=== PATIENT | female | born 1955 | race Caucasian/White ===

== ENCOUNTER → 2020-09-22 08:56 | Outpatient (BNVA) | payer MEDICARE, SELFPAY | PROVIDERS: PCP Internal Medicine; Visit Provider Obstetrics & Gynecology | DX: Z46.6 Encounter for fitting and adjustment of urinary device (principal) | CPT/HCPCS: 51798; 99212 ==

== ENCOUNTER → 2021-01-27 08:04 | Outpatient (BNVA) | payer MEDICARE, SELFPAY | PROVIDERS: PCP Internal Medicine; Visit Provider Obstetrics & Gynecology | DX: Z46.89 Encounter for fitting and adjustment of other specified devices (principal) | CPT/HCPCS: 57160; 99212 ==

== ENCOUNTER 2021-03-01 07:55 | Emergency (ER) | payer MEDICARE, SELFPAY ==
--- NOTE | ~2021-03-01 | CT_ITS ---
EXAMINATION: CT ABDOMEN AND PELVIS WITHOUT CONTRAST CLINICAL INFORMATION: Left flank pain. COMPARISON: None. TECHNIQUE: Multidetector volumetric imaging was performed from the superior aspect of the liver through the pubic symphysis. Sagittal and coronal reformatted images were obtained on the technologist workstation. This CT examination was performed using dose optimization techniques as appropriate, variously including the following: *Automated exposure control *Adjustment of mA and/or kV according to patient size (this includes techniques or standardized protocols for targeted exams where dose is matched to indication/reason for exam; i.e. extremities or head) *Use of iterative reconstruction technique DLP: 847 mGy-cm. FINDINGS: LUNG BASES: Mild dependent atelectasis in the lung bases, left greater than right. Densely calcified left lower lobe granuloma. 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 The liver is normal in size, shape, and attenuation. No focal hepatic lesion on noncontrast imaging. No biliary ductal dilatation is present. The gallbladder is unremarkable with no evidence of radiopaque gallstones, gallbladder wall thickening, or obvious pericholecystic inflammatory changes. PANCREAS: Unremarkable on noncontrast imaging. SPLEEN, ADRENAL GLANDS: Unremarkable on noncontrast imaging. KIDNEYS AND URETERS: The kidneys are normal in size, shape, and attenuation. There are several bilateral nonobstructing 2 to 4 mm calcifications in the kidneys bilaterally with attenuation values extending up to 414 Hounsfield units. There is moderate bilateral hydronephrosis with small extrarenal pelvis sees, likely due to chronic UPJ obstruction. There are also likely associated parapelvic cysts. In the upper pole of the left kidney, an exophytic 3.2 x 4.7 cm cyst is seen. No perinephric stranding. The ureters bilaterally are decompressed and no ureteral calculi are seen. BLADDER: Unremarkable. PELVIC VISCERA: Uterus and adnexa atrophic. A vaginal pessary is seen in place. GASTROINTESTINAL TRACT: Prominent duodenal diverticulum is seen arising from the junctions of the third and fourth portions of the duodenum with air-fluid level. In the left mid flank, a few closely opposed loops of abnormally dilated and fluid-filled jejunum are seen with decompression of the upstream and downstream small bowel loops. This finding is nonspecific and may represent a localized ileus, but also raises the suspicion of a subtle evolving closed loop obstruction. No definite internal hernia is seen. Remainder of the small bowel loops are unremarkable. There is mild submucosal fat deposition in the terminal ileum, perhaps related to sequelae of previous inflammation versus secondary to increased BMI. There is severe descending and sigmoid colonic and mild transverse colonic diverticulosis with no evidence of acute diverticulitis. The appendix is unremarkable. ABDOMINAL WALL: There is a small fat-containing umbilical hernia. LYMPH NODES, VASCULAR: Unremarkable. OSSEOUS STRUCTURES: Large T10 and small T11 vertebral hemangiomas are seen. There is diffuse osteopenia. Moderate facet arthropathy is noted in the mid and lower lumbar spine. CT/CT abdomen pelvis wo con IMPRESSION: 1. Abnormal fluid-filled loops of small bowel are seen in the left mid flank. Findings are nonspecific and may represent a localized ileus, but as discussed above, subtle evolving closed loop obstruction cannot be excluded. No definite internal hernia or inflammatory changes are seen in the surrounding mesentery. Close clinical correlation and follow-up is recommended. Serial follow-up CT scan with contrast may also be warranted depending on clinical circumstances. 2. Bilateral nonobstructing nephrolithiasis. 3. Bilateral moderate hydronephrosis with decompression of the ureters and no obstructing stone or mass seen. Findings are most likely related to chronic UPJ obstruction. Associated renal cysts are also noted.
[2021-03-01 08:00] VITALS: BP 176/92; PULSE 78; RESP 17; TEMP 36.8; O2SAT 96; BMI 32.8
[2021-03-01 09:17] LABS: Glucose Urine UA NEG (NEG); Leukocyte Esterase Urine TRACE (NEG); Nitrite Urine NEG (NEG); PH 7.5 (5.0-8.0); Specific Gravity - Urine 1.015 (1.005-1.025); UACC Culture Trigger YES; Urine Blood 2+ (NEG); Urine Ketones NEG (NEG); Urine Protein NEG (NEG-TRACE)
[2021-03-01 09:20] LABS: Appearance Urine CLEAR; Color Urine YELLOW
[2021-03-01 09:26] LABS: UACC CULT YES
[2021-03-01 09:27] LABS: Bacteria Urine TRACE /LPF; Squamous Epithelial Cell Urine 1+ /LPF
[2021-03-01 09:32] LABS: MANUAL DIFF FLAG NO
[2021-03-01 09:33] LABS: Basophils Percent Auto 0.4 % (0-2); Eosinophils Absolute Auto 0.3 X10*3/uL (0.0-0.4); Eosinophils Percent Auto 3.6 % (0-4); Hemoglobin 13.3 g/dl (12.0-16.0); Imm Gran Abs Auto 0.02 X10*3/uL (0.00-0.03); Imm Gran Pct Auto 0.3 % (0.0-0.4); Lymphocytes Absolute Auto 1.8 X10*3/uL (1.2-4.9); Lymphocytes Percent Auto 25.2 % (20-40); Mean Corpuscular HGB Conc 31.7 g/dl (31.0-35.0); Mean Corpuscular Hemoglobin 30.5 pg (27.0-33.0); Mean Corpuscular Volume 96.3 fL (80-98); Mean Platelet Volume 10.6 fL (9.4-12.3); Monocytes Absolute Auto 0.6 X10*3/uL (0.1-1.2); Monocytes Percent Auto 8.1 % (2-11); Neutrophils Absolute Auto 4.5 X10*3/uL (2.0-8.3); Neutrophils Percent Auto 62.4 % (45-73); Platelet Count 281 X10*3/uL (160-400); Red Blood Count 4.36 X10*6/uL (4.20-5.50); Red Cell Distribution Width 13.9 % (11.0-16.0); White Blood Count 7.3 X10*3/uL (4.8-10.8)
--- NOTE | 2021-03-01 09:39 | ED.ABDPAIN ---
HPI - Abdominal Pain General Chief Complaint: Abdominal Pain Stated Complaint: L SIDE AND ABD PAIN Time Seen by Provider: 03/01/21 08:33 Source: patient Mode of arrival: ambulatory Limitations: no limitations History of Present Illness HPI narrative: 65-year-old female with a past medical history of hypertension, kidney stones and breast cancer no pertinent surgical history presenting to the ED with complaints of left mid/left upper quadrant abdominal pain since yesterday worse today. Denies any fevers, chills, dizziness, lightheadedness, changes in vision, nausea/vomiting, neck pain/stiffness, chest pain, shortness of breath, dyspnea on exertion, orthopnea, palpitations, cough, back pain, diarrhea, constipation, black or bloody stools, hematuria, dysuria, abnormal vaginal discharge or any other symptoms complaints or concerns at this time. Denies recent travel or sick contacts. Denies being on any blood thinners. MD elicited complaint: abdominal pain Onset (ago): day(s) (Two days worse today) Pain Consistency: constant Location: LUQ and L flank Severity: moderate Quality: aching Radiation: none Migration to: no migration Exacerbating factors: other (Palpation) Relieving factors: nothing Associated symptoms: denies other symptoms Related Data Home Medications Medication Instructions Recorded Confirmed triamcinolone acetonide 0.1 % 1 applic TOPICAL DAILY 09/22/20 12/16/20 topical cream Previous Rx's Medication Instructions Recorded losartan 50 mg tablet 50 mg PO DAILY #90 tab 12/16/20 acetaminophen [Tylenol Extra 1,000 mg PO QID PRN #14 tab 03/01/21 Strength] docusate sodium [Colace] 100 mg PO BID #14 cap 03/01/21 ibuprofen 600 mg PO Q8H PRN #14 tab 03/01/21 nitrofurantoin monohyd/m-cryst 100 mg PO BID 7 Days #14 cap 03/01/21 [Macrobid] ondansetron HCl [Zofran] 4 mg PO Q8H PRN #14 tab 03/01/21 Allergies Allergy/AdvReac Type Severity Reaction Status Date / Time lidocaine Allergy Intermediate hives Verified 01/27/21 08:11 penicillin V Allergy Intermediate rash Verified 01/27/21 08:11 erythromycin base Allergy Unknown Rash Verified 01/27/21 08:11 Review of Systems Review of Systems Constitutional : No Weight loss, No Fever, No Chills, No Night Sweats, No Fatigue, No Malaise ENT/Mouth: No ear pain, No sore throat, No Difficulty swallowing Cardiovascular : No Chest Pain, No SOB, No Dyspnea on Exertion, No Orthopnea, No Edema, No Palpitations Respiratory : No Cough, No Sputum, No Wheezing, No Dyspnea Gastrointestinal : + Abdominal pain, No Nausea, No Vomiting, No Diarrhea, No blood streaked emesis, No coffee-ground emesis, No gross hematemesis, No blood streak stool, No gross hematochezia, No Melena Genitourinary : No irregular bleeding, No Dysuria, No Urinary Frequency, No Hematuria,No Urinary Incontinence, No Urgency, No Flank Pain Musculoskeletal : No joint pain, No Myalgias, No Joint Swelling Skin : No Skin Lesions, No rash Neuro : No Weakness, No Numbness, No Paresthesias, No Loss of Consciousness, NoDizziness, No Headache Psych : No Social Issues, Heme/Lymph: No Bruising, No Bleeding,No Lymphadenopathy Endocrine : No Polyuria, No Polydipsia, No Temperature Intolerance Yes all other systems are reviewed and are negative Physical Exam Vital Signs: Vital Signs: Last Vital Signs Temp 98.3 F 03/01/21 08:00 Pulse 72 03/01/21 12:13 Resp 17 03/01/21 12:13 BP 164/78 H 03/01/21 12:13 Pulse Ox 96 03/01/21 12:13 Body Mass Index 32.8 vital signs have been reviewed as normal and appeared to be correct. Blood pressure hypertensive at 176/92. Heart rate normal. Respiration rate normal. Temperature normal. Oxygen saturation normal. Appearance: Alert. Oriented X3. No acute distress. Head: Normal external exam. Normocephalic. Eyes: PERRLA. EOMI. Conjunctiva and sclera normal. Eyelids normal. ENT: Pharynx normal. Uvula midline. Moist mucous membranes. No trismus noted. No drooling noted. No muffled voice noted. Neck: Normal inspection. Neck supple. FROM. No adenopathy. No meningeal signs. CVS: Normal heart rate and rhythm. Heart sound normal. No murmurs noted. Pulses normal throughout. Respiratory: No respiratory distress. Painless inspiration. Breath sounds normal. No wheezes/rales/rhonchi noted. Chest nontender. No accessory muscle usage noted or decreased air movement noted. Abdomen: Soft and moderate tenderness to palpation to left upper quadrant/epigastric/left flank with guarding. Nondistended. No rigidity. Bowel sounds normal in all 4 quadrants. No distention noted. No organomegaly noted. No visible injury noted. No rebound tenderness. Negative Rovsing sign. Negative obturator's sign. Negative psoas sign. Negative Louis sign. Back: + mild left CVA tenderness. No right-sided CVA tenderness. Full range of motion noted. Skin: Skin warm and dry. Normal skin color. Normal skin turgor. No rashes/lesions/lacerations noted. Extremities: Extremities exhibit normal range of motion. Extremities nontender. Neuro: Oriented X 3. No motor deficit. No sensory deficit. Reflexes normal. Normal steady gait. Course Course Course Narrative: 10:30am - labs reviewed and all within normal limits. UA revealed +2 blood and a trace of leukocytes. - awaiting CT scan of abdomen and pelvis without contrast. Will re-evaluate. Reevaluation(s) Reevaluation #1: - CT scan of abdomen and pelvis revealed abnormal fluid-filled loops of small bowel are seen in the left mid flank findings are nonspecific and may represent a localized ileus, but as discussed above, subtle evolving closed loop obstruction cannot be excluded. Patient also with bilateral nonobstructing nephrolithiasis and hydronephrosis - consulted with General surgery Dr. Glass for further recommendations. Time: 12:55 Reevaluation #2: - Dr. Glass reviewed the imaging for the CT scan of the abdomen pelvis without contrast and he reported that he does not believe that there is a small bowel obstruction plus the patient does not have any symptoms consistent with obstruction. He reported that he would treat him her for the UTI and instruct her to return if any new or worsening symptoms. He does not believe she needs me to admission or surgery at this time. - I also consulted with Dr. Zabala the urologist who reported that this seems chronic that she does not meet admission at this time. - therefore print out a copy of the results explained to the patient will our thoughts were and instructed her to go home stand clear liquid diet and to return if any new or worsening symptoms. Patient understands agrees with this plan. Time: 13:33 MDM - Abdominal Pain MDM Narrative Medical decision making narrative: 8:20am - 65-year-old female presenting to the ED with complaints of left mid/left upper quadrant abdominal pain since yesterday worse today. - On exam patient is alert and oriented x3. Not in any acute distress. No focal neuro deficits are noted. Vital signs reviewed and patient mildly hypertensive at 176/92 otherwise all other vitals are within normal limits. Lungs clear to auscultation. CV RRR. Abdomen is soft although moderate tenderness to the left upper quadrant/epigastric/left flank and left CVA tenderness. Not consistent with acute abdomen. - Plan: Labs, UA, CT scan of abdomen pelvis without contrast, UA. Provide 5 mg of oxycodone. Patient also interested in filling out healthcare proxy therefore case management consult also placed. Will re-evaluate. Medical Records Attestation: I reviewed the patient's medical records. Lab Data Attestation: I reviewed the patient's lab results. Result diagrams: 03/01/21 09:25 03/01/21 09:25 Labs: Lab Results 03/01/21 03/01/21 03/01/21 Range/Units 08:59 09:25 09:25 WBC 7.3 (4.8-10.8) X10*3/uL RBC 4.36 (4.20-5.50) X10*6/uL Hgb 13.3 (12.0-16.0) g/dl Hct 42.0 (37-47) % MCV 96.3 (80-98) fL MCH 30.5 (27.0-33.0) pg MCHC 31.7 (31.0-35.0) g/dl RDW 13.9 (11.0-16.0) % Plt Count 281 (160-400) X10*3/uL MPV 10.6 (9.4-12.3) fL Immature Gran % (Auto) 0.3 (0.0-0.4) % Neut % (Auto) 62.4 (45-73) % Lymph % (Auto) 25.2 (20-40) % [place] % (Auto) 8.1 (2-11) % Eos % (Auto) 3.6 (0-4) % Baso % (Auto) 0.4 (0-2) % Lymph # (Auto) 1.8 (1.2-4.9) X10*3/uL [place] # (Auto) 0.6 (0.1-1.2) X10*3/uL Eos # (Auto) 0.3 (0.0-0.4) X10*3/uL Baso # (Auto) 0.0 (0.0-0.2) X10*3/uL Abs Immat Gran (auto) 0.02 (0.00-0.03) X10*3/uL Absolute Neuts (auto) 4.5 (2.0-8.3) X10*3/uL Absolute Nucleated RBC 0.000 (0.0-0.012) X10*3/uL Nucleated RBC % (auto) 0.0 (0.0-0.2) /100WBC Sodium 141 (135-145) mmol/L Potassium 4.3 (3.3-5.1) mmol/L Chloride 106 (96-108) mmol/L Carbon Dioxide 26 (22-29) mmol/L Anion Gap 13 (12-20) BUN 10 (9-16) mg/dL Creatinine 0.58 (0.5-1.4) mg/dL Estim Creat Clear Calc 96.6 Estimated GFR > 60 Random Glucose 98 (60-115) mg/dL Calcium 9.1 (8.4-10.2) mg/dL Magnesium 1.9 (1.6-2.6) mg/dL Total Bilirubin 0.7 (0.0-1.0) mg/dL Direct Bilirubin 0.2 (0.0-0.5) mg/dL AST 23 (5-31) U/L ALT 27 (0-31) U/L Alkaline Phosphatase 101 (39-117) U/L Total Protein 7.0 (6.5-8.0) g/dL Albumin 4.2 (3.5-5.0) g/dL Lipase 17 (8-78) U/L Urine Color YELLOW Urine Appearance CLEAR Urine pH 7.5 (5.0-8.0) Ur Specific [place] 1.015 (1.005-1.025) Urine Protein NEG (NEG-TRACE) MG/DL Urine Glucose (UA) NEG (NEG) MG/DL Urine Ketones NEG (NEG) MG/DL Urine Blood 2+ H (NEG) Urine Nitrite NEG (NEG) Ur Leukocyte Esterase TRACE H (NEG) Urine RBC 10-14 H (0) /HPF Urine WBC 1-4 (0-4) /HPF Ur Squamous Epith Cells 1+ /LPF Urine Bacteria TRACE /LPF Imaging Data CT scan of abdomen pelvis without contrast: Attestation: I personally reviewed and interpreted this imaging study as follows: Radiologist's impression: FINDINGS: LUNG BASES: Mild dependent atelectasis in the lung bases, left greater than right. Densely calcified left lower lobe granuloma. 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 The liver is normal in size, shape, and attenuation. No focal hepatic lesion on noncontrast imaging. No biliary ductal dilatation is present. The gallbladder is unremarkable with no evidence of radiopaque gallstones, gallbladder wall thickening, or obvious pericholecystic inflammatory changes. PANCREAS: Unremarkable on noncontrast imaging. SPLEEN, ADRENAL GLANDS: Unremarkable on noncontrast imaging. KIDNEYS AND URETERS: The kidneys are normal in size, shape, and attenuation. There are several bilateral nonobstructing 2 to 4 mm calcifications in the kidneys bilaterally with attenuation values extending up to 414 Hounsfield units. There is moderate bilateral hydronephrosis with small extrarenal pelvis sees, likely due to chronic UPJ obstruction. There are also likely associated parapelvic cysts. In the upper pole of the left kidney, an exophytic 3.2 x 4.7 cm cyst is seen. No perinephric stranding. The ureters bilaterally are decompressed and no ureteral calculi are seen. BLADDER: Unremarkable. PELVIC VISCERA: Uterus and adnexa atrophic. A vaginal pessary is seen in place. GASTROINTESTINAL TRACT: Prominent duodenal diverticulum is seen arising from the junctions of the third and fourth portions of the duodenum with air-fluid level. In the left mid flank, a few closely opposed loops of abnormally dilated and fluid-filled jejunum are seen with decompression of the upstream and downstream small bowel loops. This finding is nonspecific and may represent a localized ileus, but also raises the suspicion of a subtle evolving closed loop obstruction. No definite internal hernia is seen. Remainder of the small bowel loops are unremarkable. There is mild submucosal fat deposition in the terminal ileum, perhaps related to sequelae of previous inflammation versus secondary to increased BMI. There is severe descending and sigmoid colonic and mild transverse colonic diverticulosis with no evidence of acute diverticulitis. The appendix is unremarkable. ABDOMINAL WALL: There is a small fat-containing umbilical hernia. LYMPH NODES, VASCULAR: Unremarkable. OSSEOUS STRUCTURES: Large T10 and small T11 vertebral hemangiomas are seen. There is diffuse osteopenia. Moderate facet arthropathy is noted in the mid and lower lumbar spine. CT/CT abdomen pelvis wo con IMPRESSION: 1. Abnormal fluid-filled loops of small bowel are seen in the left mid flank. Findings are nonspecific and may represent a localized ileus, but as discussed above, subtle evolving closed loop obstruction cannot be excluded. No definite internal hernia or inflammatory changes are seen in the surrounding mesentery. Close clinical correlation and follow-up is recommended. Serial follow-up CT scan with contrast may also be warranted depending on clinical circumstances. 2. Bilateral nonobstructing nephrolithiasis. 3. Bilateral moderate hydronephrosis with decompression of the ureters and no obstructing stone or mass seen. Findings are most likely related to chronic UPJ obstruction. Associated renal cysts are also noted. Critical Care Time Critical Care Time Critical Care Time: Yes Total Critical Care Time: 60 Attestation: I personally attest to this time spent taking care of the patient Discharge Plan Discharge Clinical Impression: Ileus, Bilateral nephrolithiasis, Hydronephrosis, Renal cyst, UTI (urinary tract infection) Patient Disposition: Home, Self-Care Instructions: Kidney Stones (ED), Clear Liquid Diet (ED), Hydronephrosis (ED), Ileus (ED), Kidney Cyst (ED), Urinary Tract Infection in Older Adults (ED) Additional Instructions: You should start a clear liquid diet for the next week. Return if any new or worsening symptoms especially if you have any nausea/vomiting or increasing abdominal pain and not passing any flatulence or bowels. Please follow-up with a urologist. Prescriptions: New nitrofurantoin monohyd/m-cryst [Macrobid] 100 mg capsule 100 mg PO BID 7 Days Qty: 14 RF: 0 ibuprofen 800 mg tablet 600 mg PO Q8H PRN (Reason: pain) Qty: 14 RF: 0 acetaminophen [Tylenol Extra Strength] 500 mg tablet 1,000 mg PO QID PRN (Reason: fever or pain) Qty: 14 RF: 0 docusate sodium [Colace] 100 mg capsule 100 mg PO BID Qty: 14 RF: 0 ondansetron HCl [Zofran] 4 mg tablet 4 mg PO Q8H PRN (Reason: nausea and vomiting) Qty: 14 RF: 0 No Action losartan 50 mg tablet 50 mg PO DAILY Qty: 90 RF: 0 triamcinolone acetonide 0.1 % cream 1 applic topical DAILY RF: 0 Referrals: Raul Zabala MD [Physician] - 2 days Stand Alone Forms: Work/School Release Print Language: Nauruan [facility] Past Medical History Attestation statement: The following information was validated with the patient. Medical History Hx of breast cancer Hx of essential hypertension Surgical History No pertinent past surgical history Family History Family History Maternal Grandmother Breast cancer Sister Breast cancer Father Dementia Maternal Aunt Breast cancer Mother No problems noted. Paternal Grandmother Cancer of thyroid Brother No problems noted. Brother No problems noted. Brother No problems noted. Son No problems noted. Son No problems noted. Son No problems noted. Daughter No problems noted. Social History Social History Alcohol intake: never Smoking Status: Never smoker Use of substances other than those prescribed or required for medical reasons: No Advance Directives: Yes Advance Directives Information Provided: Yes Advance Directives on File: No Sexual orientation: Straight/Heterosexual Gender identity: female
[2021-03-01] MEDS: oxyCODONE HCl Immed Release 5 MG TABLET PO ×2 (09:44→13:45)
[2021-03-01 10:18] LABS: Alanine Aminotransferase 27 U/L (0-31); Albumin Level 4.2 g/dL (3.5-5.0); Alkaline Phosphatase 101 U/L (39-117); Anion Gap 13 (12-20); Aspartate Amino Transferase 23 U/L (5-31); Bilirubin Direct 0.2 mg/dL (0.0-0.5); Bilirubin Total 0.7 mg/dL (0.0-1.0); Blood Urea Nitrogen 10 mg/dL (9-16); Calcium 9.1 mg/dL (8.4-10.2); Carbon Dioxide 26 mmol/L (22-29); Chloride 106 mmol/L (96-108); Creatinine Clr Calc Pharmacy 96.6; Estimated Glomerular Filt Rate > 60; Glucose Random 98 mg/dL (60-115); Lipase 17 U/L (8-78); Magnesium 1.9 mg/dL (1.6-2.6); Potassium 4.3 mmol/L (3.3-5.1); Sodium 141 mmol/L (135-145)
[2021-03-01 11:18] VITALS: BP 166/82; PULSE 72; RESP 19; O2SAT 97
[2021-03-01 12:13] VITALS: BP 164/78; PULSE 72; RESP 17; O2SAT 96
== END 2021-03-01 13:54 | disposition home or self-care (01) ==
PROVIDERS: Physician Assistant Medical; Emergency Provider Emergency Medicine; PCP Internal Medicine
DX: K56.7 Ileus, unspecified (principal); N20.0 Calculus of kidney; N28.1 Cyst of kidney, acquired; N39.0 Urinary tract infection, site not specified; R10.12 Left upper quadrant pain
CPT/HCPCS: 36415; 74176; 80053; 80076; 81001; 82248; 83690; 83735; 85025; 87086; 99284; 99285

== ENCOUNTER 2021-03-16 08:06 | Outpatient (REF) | payer MEDICARE, SELFPAY ==
--- NOTE | ~2021-03-16 | MM_ITS ---
EXAMINATION: MM SCREENING DIGITAL BREAST TOMOSYNTHESIS, BILATERAL CLINICAL INFORMATION: Screening. Asymptomatic. The lifetime risk of breast cancer based on the Tyrer-Cuzick Model is 14%. COMPARISON: Mammography: 11/05/2019, 07/11/2017; outside exam 06/08/2016 ([facility]). TECHNIQUE: Digital breast tomosynthesis is performed in both the craniocaudal and mediolateral oblique views along with computer-aided detection (CAD). Synthesized 2D images are generated from the tomosynthesis. Additional right MLO view is provided. FINDINGS: There are scattered areas of fibroglandular density (ACR BI-RADS breast composition Category b). There are no significant masses, abnormal calcifications, or other abnormalities. Parenchymal pattern is similar to prior exams. No significant changes. MM/MM tomosynthesis screening BI IMPRESSION: No mammographic evidence of malignancy. ASSESSMENT: BI-RADS 1: Negative RECOMMENDATION: Routine annual mammography screening. This patient's information was entered into a reminder system with a target due date for their next mammogram.
== END 2021-03-16 08:07 | disposition home or self-care (01) ==
LOC: HO.MAMMO 08:06
PROVIDERS: Visit Provider Internal Medicine
DX: Z12.31 Encounter for screening mammogram for malignant neoplasm of breast (principal)
CPT/HCPCS: 77063; 77067

== ENCOUNTER 2021-03-24 07:36 | Outpatient (REF) | payer MEDICARE, SELFPAY ==
[2021-03-24 11:48] LABS: Alanine Aminotransferase 38 U/L (0-31); Albumin Level 4.5 g/dL (3.5-5.0); Alkaline Phosphatase 112 U/L (39-117); Anion Gap 16 (12-20); Aspartate Amino Transferase 25 U/L (5-31); Bilirubin Direct 0.2 mg/dL (0.0-0.5); Bilirubin Total 0.4 mg/dL (0.0-1.0); Blood Urea Nitrogen 12 mg/dL (9-16); Calcium 9.2 mg/dL (8.4-10.2); Carbon Dioxide 22 mmol/L (22-29); Chloride 104 mmol/L (96-108); Estimated Glomerular Filt Rate > 60; Glucose Random 91 mg/dL (60-115); Potassium 4.3 mmol/L (3.3-5.1); Sodium 138 mmol/L (135-145); Total Protein 7.5 g/dL (6.5-8.0)
== END 2021-03-24 07:37 | disposition home or self-care (01) ==
LOC: HO.HMGCLDS 07:36
PROVIDERS: PCP Internal Medicine; Visit Provider Internal Medicine
DX: I10 Essential (primary) hypertension (principal); L30.9 Dermatitis, unspecified
CPT/HCPCS: 36415; 80048; 80076

== ENCOUNTER 2021-04-05 07:54 | Emergency (ER) | payer MEDICARE, SELFPAY ==
--- NOTE | ~2021-04-05 | CT_ITS ---
EXAMINATION: CT ABDOMEN AND PELVIS WITH CONTRAST CLINICAL INFORMATION: Abdominal pain. Kidney stones. COMPARISON: CT abdomen and pelvis of 03/01/2021. Pelvic ultrasound of 11/28/2018. TECHNIQUE: Multidetector volumetric images were obtained from the superior aspect of the liver through the pubic symphysis following administration 85 mL of Omnipaque 350 intravenous contrast. Sagittal and coronal reformatted images were obtained on the technologist's workstation. Delayed images through the kidneys in the excretory phase were obtained. Oral contrast: No. This CT examination was performed using dose optimization techniques as appropriate, variously including the following: *Automated exposure control. *Adjustment of mA and/or kV according to patient size (this includes techniques or standardized protocols for targeted exams where dose is matched to indication/reason for exam; i.e. extremities or head). *Use of iterative reconstruction technique. DLP: 1359 mGy-cm. FINDINGS: LUNG BASES: Bibasilar minimal dependent and linear atelectasis. No pleural or pericardial effusion. No pleural or pericardial effusion. LIVER, GALLBLADDER, AND BILIARY TREE: The liver is normal in size, shape, and attenuation. No focal hepatic lesion or biliary ductal dilatation is present. The gallbladder is unremarkable with no evidence of radiopaque gallstones, gallbladder wall thickening, or obvious pericholecystic inflammatory changes. PANCREAS: Unremarkable. SPLEEN: Unremarkable. ADRENAL GLANDS: Unremarkable. KIDNEYS AND URETERS: The kidneys are normal in size, shape and attenuation. Multiple bilateral peripelvic renal cysts are noted. At least 4 small nonobstructing renal calculi are noted in the mid and lower right kidney similar to previous CT measuring up to 0.4 cm. A few punctate nonobstructing left renal lower pole calculi are seen. No evidence of radiopaque ureteric calculi. No hydroureteronephrosis. No perinephric stranding. BLADDER: Unremarkable. GASTROINTESTINAL TRACT: The colon is normal in caliber. Mild to moderate s[place]ana colonic diverticulosis is noted without acute diverticulitis. An appendix is normal. No evidence of colonic wall thickening or pericolic fat stranding. The stomach and small bowel are not abnormally dilated. Swirling of the small bowel mesentery in the left mid and lower abdomen is noted (series 3 images 50 through 61/92). No significant bowel dilatation or bowel wall thickening is noted in the region. ABDOMINAL WALL: No significant hernia is appreciated. LYMPH NODES: There is no evidence of pathologically enlarged lymph nodes. VASCULAR: The aortoiliac vessels are normal in caliber. Mild scattered calcific atherosclerosis of the aorta and iliac arteries. The celiac axis, superior mesenteric artery and inferior mesenteric artery are normal in caliber and well opacified. Portal venous system, splenic vein and SMV are also well opacified. PELVIC VISCERA: Normal CT appearance of the uterus and ovaries/adnexa. A ring-shaped structure is noted in the vagina, which may represent pessary/diaphragm. OSSEOUS STRUCTURES: No acute or suspicious osseous abnormality. Intraosseous hemangioma in the T10 body is again noted. Small intraosseous hemangioma in T11 body. Minimal anterior subluxation of L4 over L5. CT/CT abdomen pelvis w con IMPRESSION: 1. Bilateral nonobstructing small renal calculi. No hydroureteronephrosis. Prominent bilateral renal peripelvic cysts. No perinephric stranding. 2. Diffuse colonic diverticulosis without acute diverticulitis. 3. Swirling of the small bowel mesentery in the left mid and lower hemiabdomen without associated bowel dilatation or bowel wall thickening is nonspecific. Findings can be seen in the setting of internal bowel herniation through the mesenteric defect. Recommend clinical correlation and surgical consultation. This critical result was discussed with FELICIA Alonzo at 2:10 PM on 04/05/2021 and it was ascertained that the content and urgency of the report was understood at the time of direct communication.
--- NOTE | 2021-04-05 10:50 | ECG_ITS ---
Test Reason : ABD PAIN Blood Pressure : / mmHG Vent. Rate : 087 BPM Atrial Rate : 087 BPM P-R Int : 148 ms QRS Dur : 088 ms QT Int : 400 ms P-R-T Axes : 028 029 038 degrees QTc Int : 481 ms Normal sinus rhythm Normal ECG No previous ECGs available Referred By: Mook Singh Electronically Signed By:ANAI GAN
--- NOTE | 2021-04-05 11:00 | ED_ITS ---
HPI - Abdominal Pain General Chief Complaint: Abdominal Pain Stated Complaint: kidney stones, infection Time Seen by Provider: 04/05/21 10:36 Source: patient Mode of arrival: ambulatory Limitations: no limitations History of Present Illness HPI narrative: Patient presents ED for abdominal pain since yesterday. Patient recently diagnosed with kidney stones 6 weeks ago states mother return. Patient states upper abdominal pain radiating down to lower abdomen. Patient denies any flank pain, fever, chills, dysuria, hematuria. Related Data Home Medications Medication Instructions Recorded Confirmed triamcinolone acetonide 0.1 % 1 applic TOPICAL DAILY 09/22/20 03/24/21 topical cream Previous Rx's Medication Instructions Recorded losartan 50 mg tablet 50 mg PO DAILY #90 tab 12/16/20 docusate sodium [Colace] 100 mg PO BID #14 cap 03/01/21 ibuprofen 600 mg PO Q8H PRN #14 tab 03/01/21 naproxen 500 mg PO BID PRN #20 tab 04/05/21 Allergies Allergy/AdvReac Type Severity Reaction Status Date / Time lidocaine Allergy Intermediate hives Verified 03/06/21 10:48 penicillin V Allergy Intermediate rash Verified 03/06/21 10:48 erythromycin base Allergy Unknown Rash Verified 03/06/21 10:48 Review of Systems Review of Systems Yes all other systems are reviewed and are negative Constitutional: Reports as per HPI and Reports no additional constitutional complaints Eyes: Reports as per HPI and Reports no additional eye complaints Reports system reviewed and no additional complaints, except as documented and Reports as per HPI Cardiovascular: Reports as per HPI and Reports no additional cardiovascular complaints Respiratory: Reports as per HPI and Reports no additional respiratory complaints Gastrointestinal: Reports as per HPI, Reports no additional gastrointestinal co mplaints and Reports abdominal pain Genitourinary: Reports no additional female genitourinary complaints and Reports as per HPI Musculoskeletal: Reports no additional musculoskeletal complaints and Reports as per HPI Reports system reviewed and no additional complaints, except as documented and Reports as per HPI Psychiatric: Reports no additional psychiatric complaints and Reports as per HPI Physical Exam Vital Signs: Vital Signs: Last Vital Signs Temp 97.7 F 04/05/21 11:24 Pulse 78 04/05/21 14:00 Resp 14 04/05/21 14:00 BP 160/72 H 04/05/21 14:00 Pulse Ox 95 04/05/21 14:00 Body Mass Index 32.8 Const: General: cooperative, healthy appearing, comfortable, no acute distress, well developed, alert and awake Orientation/consciousness: patient oriented x3 HENMT: Head: Yes normal to inspection, Yes No palpable skull fracture present, Yes normocephalic, Yes atraumatic and No abrasion Eyes: General: appearance normal, both eyes and all related structures Neck: Neck: Yes normal visual inspection, Yes full ROM, Yes no lymp hadenopathy, Yes no meningeal signs, Yes trachea midline, Yes supple and No tender Chest: Chest palpation & inspection: normal inspection of the chest and normal palpation of entire chest wall Resp: Effort & Inspection: normal respiratory effort and able to speak in complete sentences Auscultation: clear to auscultation bilaterally Cardio: Jugular venous distension: no JVD Heart sounds: S1 normal heart sound present and S2 normal heart sound present GI: Inspection: Yes normal to inspection and No abdominal wall ecchymosis Palpation (GI): Soft to palpation, not firm, Tenderness to palpation present (GI) (upper/mid abdomen tenderness.) not in the LLQ, not in the RLQ, not in the LUQ, not in the RUQ, not at McBurney's point, not periumbilically, not sup rapubicly, Louis's sign negative, obturator sign negative, psoas sign negative, with no rebound tenderness and Rovsing's sign negative, no guarding and not rigid : General: No CVA tenderness and Yes no CVA tenderness Back/Spine/Pelvis: Back: no CVA tenderness, No CVA tenderness and No back te nderness Skin: General skin exam: no rashes or lesions noted and elasticity normal Neuro: General: patient oriented x3, no meningeal signs and CN's II-XI intact bilaterally Cranial nerves: Yes CN's II-XII intact bilaterally Extrem: General: Yes normal to inspection and Yes full ROM Psych: Appearance: grossly normal, well kempt and not disheveled Course Course Course Narrative: Labs ordered, EKG, CT scan, and troponin ordered. Patient ordered Toradol. Reevaluation(s) Reevaluation #1: EKG normal. Troponin came back negative after having abdominal pain for [address] Da Silva called and states patient have a testing mesentery. Dr. Chaidez of surgery was contacted and she came to the bedside and evaluated patient. Awaiting for her recommendations. Reevaluation #2: Dr. Chaidez states no surgical intervention. Patient could be discharged. Patient already has a follow-up with Dr. Glass for twisting mesentery. CT scan shows the same nonobstructive renal calculi. UA negative for UTI. Labs are baseline. Patient to be discharged. MDM - Abdominal Pain MDM Narrative Medical decision making narrative: Abdominal pain. Twisting mesentery Lab Data Result diagrams: 04/05/21 11:00 04/05/21 11:00 Labs: Lab Results 04/05/21 04/05/21 04/05/21 Range/Units 11:00 11:00 11:00 WBC 7.0 (4.8-10.8) X10*3/uL RBC 4.44 (4.20-5.50) X10*6/uL Hgb 13.7 (12.0-16.0) g/dl Hct 42.3 (37-47) % MCV 95.3 (80-98) fL MCH 30.9 (27.0-33.0) pg MCHC 32.4 (31.0-35.0) g/dl RDW 13.9 (11.0-16.0) % Plt Count 252 (160-400) X10*3/uL MPV 11.1 (9.4-12.3) fL Immature Gran % (Auto) 0.3 (0.0-0.4) % Neut % (Auto) 57.2 (45-73) % Lymph % (Auto) 30.7 (20-40) % [place] % (Auto) 7.9 (2-11) % Eos % (Auto) 3.6 (0-4) % Baso % (Auto) 0.3 (0-2) % Lymph # (Auto) 2.1 (1.2-4.9) X10*3/uL [place] # (Auto) 0.6 (0.1-1.2) X10*3/uL Eos # (Auto) 0.3 (0.0-0.4) X10*3/uL Baso # (Auto) 0.0 (0.0-0.2) X10*3/uL Abs Immat Gran (auto) 0.02 (0.00-0.03) X10*3/uL Absolute Neuts (auto) 4.0 (2.0-8.3) X10*3/uL Absolute Nucleated RBC 0.000 (0.0-0.012) X10*3/uL Nucleated RBC % (auto) 0.0 (0.0-0.2) /100WBC PT 11.4 (10.8-13.0) SEC INR 1.0 (0.9-1.1) APTT 52.7 H (24.1-38.0) SEC Sodium 140 (135-145) mmol/L Potassium 4.1 (3.3-5.1) mmol/L Chloride 105 (96-108) mmol/L Carbon Dioxide 26 (22-29) mmol/L Anion Gap 13 (12-20) BUN 12 (9-16) mg/dL Creatinine 0.59 (0.5-1.4) mg/dL Estim Creat Clear Calc 94.9 Estimated GFR > 60 Random Glucose 95 (60-115) mg/dL Calcium 9.4 (8.4-10.2) mg/dL Total Bilirubin 0.4 (0.0-1.0) mg/dL Direct Bilirubin 0.2 (0.0-0.5) mg/dL AST 21 (5-31) U/L ALT 26 (0-31) U/L Alkaline Phosphatase 99 (39-117) U/L Troponin I High Sens (<3.5-17.0) ng/L Total Protein 7.3 (6.5-8.0) g/dL Albumin 4.4 (3.5-5.0) g/dL Lipase 20 (8-78) U/L Urine Color Urine Appearance Urine pH (5.0-8.0) Ur Specific [place] (1.005-1.025) Urine Protein (NEG-TRACE) MG/DL Urine Glucose (UA) (NEG) MG/DL Urine Ketones (NEG) MG/DL Urine Blood (NEG) Urine Nitrite (NEG) Ur Leukocyte Esterase (NEG) Urine RBC (0) /HPF Urine WBC (0-4) /HPF Ur Squamous Epith Cells /LPF Urine Bacteria /LPF 04/05/21 04/05/21 Range/Units 11:00 11:00 WBC (4.8-10.8) X10*3/uL RBC (4.20-5.50) X10*6/uL Hgb (12.0-16.0) g/dl Hct (37-47) % MCV (80-98) fL MCH (27.0-33.0) pg MCHC (31.0-35.0) g/dl RDW (11.0-16.0) % Plt Count (160-400) X10*3/uL MPV (9.4-12.3) fL Immature Gran % (Auto) (0.0-0.4) % Neut % (Auto) (45-73) % Lymph % (Auto) (20-40) % [place] % (Auto) (2-11) % Eos % (Auto) (0-4) % Baso % (Auto) (0-2) % Lymph # (Auto) (1.2-4.9) X10*3/uL [place] # (Auto) (0.1-1.2) X10*3/uL Eos # (Auto) (0.0-0.4) X10*3/uL Baso # (Auto) (0.0-0.2) X10*3/uL Abs Immat Gran (auto) (0.00-0.03) X10*3/uL Absolute Neuts (auto) (2.0-8.3) X10*3/uL Absolute Nucleated RBC (0.0-0.012) X10*3/uL Nucleated RBC % (auto) (0.0-0.2) /100WBC PT (10.8-13.0) SEC INR (0.9-1.1) APTT (24.1-38.0) SEC Sodium (135-145) mmol/L Potassium (3.3-5.1) mmol/L Chloride (96-108) mmol/L Carbon Dioxide (22-29) mmol/L Anion Gap (12-20) BUN (9-16) mg/dL Creatinine (0.5-1.4) mg/dL Estim Creat Clear Calc Estimated GFR Random Glucose (60-115) mg/dL Calcium (8.4-10.2) mg/dL Total Bilirubin (0.0-1.0) mg/dL Direct Bilirubin (0.0-0.5) mg/dL AST (5-31) U/L ALT (0-31) U/L Alkaline Phosphatase (39-117) U/L Troponin I High Sens < 3.5 (<3.5-17.0) ng/L Total Protein (6.5-8.0) g/dL Albumin (3.5-5.0) g/dL Lipase (8-78) U/L Urine Color STRAW Urine Appearance CLEAR Urine pH 7.0 (5.0-8.0) Ur Specific [place] <= 1.005 (1.005-1.025) Urine Protein NEG (NEG-TRACE) MG/DL Urine Glucose (UA) NEG (NEG) MG/DL Urine Ketones NEG (NEG) MG/DL Urine Blood 1+ H (NEG) Urine Nitrite NEG (NEG) Ur Leukocyte Esterase NEG (NEG) Urine RBC 0-2 (0) /HPF Urine WBC 0 (0-4) /HPF Ur Squamous Epith Cells TRACE /LPF Urine Bacteria 1+ /LPF ECG Data Interpretation: Normal sinus rhythm. Normal EKG. Delivery 87. Peer interval 148. QRS 88. QTC 481. Negative STEMI Discharge Plan Discharge Clinical Impression: Abdominal pain Patient Disposition: Home, Self-Care Instructions: Abdominal Pain (ED) Additional Instructions: Return to the ED for worsening abdominal pain, nausea, vomiting, fever, chills, chest pain, shortness of breath, flank pain, dysuria, hematuria, or any other concerning symptoms. Prescriptions: New naproxen 500 mg tablet 500 mg PO BID PRN (Reason: pain) Qty: 20 RF: 0 No Action ibuprofen 800 mg tablet 600 mg PO Q8H PRN (Reason: pain) Qty: 14 RF: 0 docusate sodium [Colace] 100 mg capsule 100 mg PO BID Qty: 14 RF: 0 losartan 50 mg tablet 50 mg PO DAILY Qty: 90 RF: 0 triamcinolone acetonide 0.1 % cream 1 applic topical DAILY RF: 0 Referrals: Shane Santos MD [Primary Care Provider] - 2 days (Abdominal pain. Twisting of mesentery. Please follow-up with surgery) Roberto Glass MD [Physician] - 2 days (Twisting of mesentery.) Stand Alone Forms: Work/School Release Print Language: [place]ian [facility] Past Medical History Medical History Hx of breast cancer Hx of essential hypertension Surgical History No pertinent past surgical history Family History Family History Maternal Grandmother Breast cancer Sister Breast cancer Father Dementia Maternal Aunt Breast cancer Mother No problems noted. Paternal Grandmother Cancer of thyroid Brother No problems noted. Brother No problems noted. Brother No problems noted. Son No problems noted. Son No problems noted. Son No problems noted. Daughter No problems noted. Social History Social History Alcohol intake: never Smoking Status: Never smoker Use of substances other than those prescribed or required for medical reasons: No Advance Directives: Yes Advance Directives Information Provided: Yes Advance Directives on File: No Sexual orientation: Straight/Heterosexual Gender identity: female
[2021-04-05] MEDS: 0.9 % Sodium Chloride 1,000 ML 999 ML IV (11:03)
[2021-04-05 11:18] LABS: MANUAL DIFF FLAG NO
[2021-04-05 11:20] LABS: Basophils Percent Auto 0.3 % (0-2); Eosinophils Absolute Auto 0.3 X10*3/uL (0.0-0.4); Eosinophils Percent Auto 3.6 % (0-4); Glucose Urine UA NEG (NEG); Hematocrit 42.3 % (37-47); Hemoglobin 13.7 g/dl (12.0-16.0); Imm Gran Abs Auto 0.02 X10*3/uL (0.00-0.03); Imm Gran Pct Auto 0.3 % (0.0-0.4); Leukocyte Esterase Urine NEG (NEG); Lymphocytes Absolute Auto 2.1 X10*3/uL (1.2-4.9); Lymphocytes Percent Auto 30.7 % (20-40); Mean Corpuscular HGB Conc 32.4 g/dl (31.0-35.0); Mean Corpuscular Hemoglobin 30.9 pg (27.0-33.0); Mean Corpuscular Volume 95.3 fL (80-98); Mean Platelet Volume 11.1 fL (9.4-12.3); Monocytes Absolute Auto 0.6 X10*3/uL (0.1-1.2); Monocytes Percent Auto 7.9 % (2-11); Neutrophils Percent Auto 57.2 % (45-73); Nitrite Urine NEG (NEG); Platelet Count 252 X10*3/uL (160-400); Red Blood Count 4.44 X10*6/uL (4.20-5.50); Red Cell Distribution Width 13.9 % (11.0-16.0); Specific Gravity - Urine <= 1.005 (1.005-1.025); Urine Blood 1+ (NEG); Urine Ketones NEG (NEG); Urine Protein NEG (NEG-TRACE)
[2021-04-05 11:24] VITALS: BP 157/71; PULSE 81; RESP 18; TEMP 36.5; O2SAT 97; BMI 32.8
[2021-04-05 11:25] LABS: Prothrombin Time 11.4 SEC (10.8-13.0)
[2021-04-05 11:29] LABS: Appearance Urine CLEAR; Color Urine STRAW
[2021-04-05 11:40] LABS: Partial Thromboplastin Time 52.7 SEC (24.1-38.0)
[2021-04-05 11:41] LABS: Alanine Aminotransferase 26 U/L (0-31); Albumin Level 4.4 g/dL (3.5-5.0); Alkaline Phosphatase 99 U/L (39-117); Anion Gap 13 (12-20); Aspartate Amino Transferase 21 U/L (5-31); Bilirubin Direct 0.2 mg/dL (0.0-0.5); Bilirubin Total 0.4 mg/dL (0.0-1.0); Blood Urea Nitrogen 12 mg/dL (9-16); Calcium 9.4 mg/dL (8.4-10.2); Carbon Dioxide 26 mmol/L (22-29); Chloride 105 mmol/L (96-108); Creatinine Clr Calc Pharmacy 94.9; Estimated Glomerular Filt Rate > 60; Glucose Random 95 mg/dL (60-115); Lipase 20 U/L (8-78); Potassium 4.1 mmol/L (3.3-5.1); Sodium 140 mmol/L (135-145); Total Protein 7.3 g/dL (6.5-8.0)
[2021-04-05 11:45] LABS: Bacteria Urine 1+ /LPF; RBC Urine 0-2 /HPF (0); Squamous Epithelial Cell Urine TRACE /LPF; Troponin-I High Sensitivity < 3.5 ng/L (<3.5-17.0); WBC Urine 0 /HPF (0-4)
[2021-04-05] MEDS: Ketorolac Tromethamine 30 MG/ML VIAL IVPUSH (12:45)
[2021-04-05] MEDS: iohexoL 350 MG/ML 100 ML INFUS..BTL IV (13:40)
[2021-04-05 14:00] VITALS: BP 160/72; PULSE 78; RESP 14; O2SAT 95
--- NOTE | 2021-04-05 14:15 | PC.NURSE ---
Pt is calm and resting in bed. Awaiting results of CT scan.
--- NOTE | 2021-04-05 14:46 | P.CONGS_ITS ---
History of Present Illness Consult details Consult date: 04/05/21 Reason for consult: abdominal pain (Mesenteric volvulus without obstruction) Narrative: This is a 65-year-old female who presented to the emergency department today for evaluation of recurrent upper abdominal pain. She reports that the pain was more significant in the left lower mid abdomen but also involves the upper abdomen bilaterally. She feels somewhat bloated. She had been seen in the emergency department on March 01 with similar symptoms. At that time, she was noted to have nephro lithiasis and bilateral hydronephrosis as well as a UTI. On CT scan, a few dilated loops of jejunum were noted but there was no clear evidence of obstruction. She was treated for the UTI and her pain resolves, but recurred yesterday. She does not report fever, chills, nausea or vomiting. She has not had similar problems in the past. In the emergency department today, white blood count was normal at 7.0 with a normal differential. A CT scan of the abdomen and pelvis has been obtained. Final reading is not available at the time of this dictation, but a nonobstructing small-bowel mesenteric volvulus was noted. She has no history of surgery and no history of symptomatic ovarian cysts, div erticulitis or other abdominal inflammatory process. Review of Systems Constitutional: Constitutional: Denies chills and Denies fever(s) Gastrointestinal: Gastrointestinal: Reports as per HPI Genitourinary: Comments: Reports bladder prolapse, uses a pessary [facility] Past Medical History Medical History Hx of breast cancer Hx of essential hypertension Family History Family History Maternal Grandmother Breast cancer Sister Breast cancer Father Dementia Maternal Aunt Breast cancer Mother No problems noted. Paternal Grandmother Cancer of thyroid Brother No problems noted. Brother No problems noted. Brother No problems noted. Son No problems noted. Son No problems noted. Son No problems noted. Daughter No problems noted. Surgical History Surgical History No pertinent past surgical history Social History Social History Alcohol intake: never Smoking Status: Never smoker Use of substances other than those prescribed or required for medical reasons: No Advance Directives: Yes Advance Directives Information Provided: Yes Advance Directives on File: No Sexual orientation: Straight/Heterosexual Gender identity: female Meds Allergies Allergy/AdvReac Type Severity Reaction Status Date / Time lidocaine Allergy Intermediate hives Verified 03/06/21 10:48 penicillin V Allergy Intermediate rash Verified 03/06/21 10:48 erythromycin base Allergy Unknown Rash Verified 03/06/21 10:48 Home Medications Medication Instructions Recorded Confirmed Last Taken Type triamcinolone acetonide 0.1 % 1 applic TOPICAL DAILY 09/22/20 03/24/21 Unknown History topical cream Physical Exam Vital Signs: Vital Signs: Last Vital Signs Temp 97.7 F 04/05/21 11:24 Pulse 78 04/05/21 14:00 Resp 14 04/05/21 14:00 BP 160/72 H 04/05/21 14:00 Pulse Ox 95 04/05/21 14:00 Body Mass Index 32.8 Const: General: cooperative, no acute distress and alert HENMT: Head: Yes normocephalic and Yes atraumatic Resp: Effort & Inspection: normal respiratory effort Auscultation: clear to auscultation bilaterally Cardio: Rate: regular rate Rhythm: regular rhythm GI: Other: Round, soft, mildly tender both upper quadrants an upper aspect of left lower quadrant, no palpable masses, bowel sounds normal Rectal Exam - Female: deferred Skin: Rashes: rashes noted Psych: Affect: normal affect Thought process: Normal thought process present Results Labs Result diagrams: 04/05/21 11:00 04/05/21 11:00 Labs: Abnormal lab results 04/05/21 04/05/21 Range/Units 11:00 11:00 APTT 52.7 H (24.1-38.0) SEC Urine Blood 1+ H (NEG) Short CBC 04/05/21 Range/Units 11:00 WBC 7.0 (4.8-10.8) X10*3/uL Hgb 13.7 (12.0-16.0) g/dl Hct 42.3 (37-47) % Plt Count 252 (160-400) X10*3/uL BMP 04/05/21 11:00 Sodium 140 Potassium 4.1 Chloride 105 Carbon Dioxide 26 BUN 12 Creatinine 0.59 Calcium 9.4 Liver Function 04/05/21 Range/Units 11:00 Total Bilirubin 0.4 (0.0-1.0) mg/dL Direct Bilirubin 0.2 (0.0-0.5) mg/dL AST 21 (5-31) U/L ALT 26 (0-31) U/L Alkaline Phosphatase 99 (39-117) U/L Albumin 4.4 (3.5-5.0) g/dL Urine 04/05/21 Range/Units 11:00 Urine Color STRAW Urine Appearance CLEAR Urine pH 7.0 (5.0-8.0) Ur Specific [place] <= 1.005 (1.005-1.025) Urine Protein NEG (NEG-TRACE) MG/DL Urine Glucose (UA) NEG (NEG) MG/DL All other labs normal. Assessment and Plan (1) Abdominal discomfort in left lower quadrant: Status: Acute 65-year-old female with abdominal discomfort and CT findings of a localized small-bowel volvulus without evidence of obstruction or vascular com promise. I discussed the findings with her. This may be the source of her recurrent abdominal discomfort. Etiology of the volvulus is unclear. She has not undergone abdominal surgery in the past, though the possibility of adhesions as a lead point for volvulus cannot be ruled out. We discussed that the process can be intermittent and that significant vascular compromise could occur and would be a surgical emergency. Surgical exploration could be carried out. There is no guarantee that a specific etiology would be identified and that further recurrences could be prevented, but exploration is reasonable to consider. There is no acute need for surgical intervention at this time, but follow-up is appropriate. She reports that Dr. Santos is in the process of arranging an appointment for her to see Dr. Glass. She wishes to proceed with this, but also prefers to hold off on surgery as she is pursuing further evaluation and treatment for bladder prolapse. Procedures Date of Service Date of Service: 04/05/21
== END 2021-04-05 16:36 | disposition home or self-care (01) ==
PROVIDERS: Physician Assistant; Emergency Provider Emergency Medicine; PCP Internal Medicine
DX: N20.0 Calculus of kidney (principal); R10.32 Left lower quadrant pain; Z79.899 Other long term (current) drug therapy
CPT/HCPCS: 36415; 74177; 80053; 80076; 81001; 82248; 83690; 84484; 85025; 85610; 85730; 93005; 96365; 96372; 96375; 99285; J1885; Q9967

== ENCOUNTER → 2021-05-05 15:25 | Outpatient (BNVA) | payer MEDICARE, SELFPAY | PROVIDERS: PCP Internal Medicine; Visit Provider Urology | DX: N20.0 Calculus of kidney (principal); N81.2 Incomplete uterovaginal prolapse | CPT/HCPCS: 99202 ==

== ENCOUNTER → 2021-05-11 10:50 | Outpatient (BNVA) | payer MEDICARE, SELFPAY | PROVIDERS: PCP Internal Medicine; Visit Provider Nurse Practitioner Family | DX: R10.32 Left lower quadrant pain (principal); K57.90 Diverticulosis of intestine, part unspecified, without perforation or abscess without bleeding | CPT/HCPCS: 99202 ==

== ENCOUNTER 2021-09-07 08:58 | Outpatient (REF) | payer MEDICARE, SELFPAY | END 2021-09-07 08:59 | disposition home or self-care (01) | LOC: HO.LAB 08:58 | PROVIDERS: PCP Internal Medicine; Visit Provider Obstetrics & Gynecology | DX: N81.4 Uterovaginal prolapse, unspecified (principal); T14.8XXA Other injury of unspecified body region, initial encounter; N95.0 Postmenopausal bleeding | CPT/HCPCS: 57500; 88305; 99212 ==

== ENCOUNTER 2021-09-28 10:32 | Outpatient (REF) | payer MEDICARE, SELFPAY ==
--- NOTE | ~2021-09-28 | US_ITS ---
EXAMINATION: US PELVIS CLINICAL INFORMATION: Postmenopausal bleeding COMPARISON: Previous CT of the abdomen and pelvis March 2021 TECHNIQUE: Ultrasound of the pelvis is performed using both transabdominal and transvaginal transducers along with Doppler. Transvaginal imaging is performed due to inadequate visualization transabdominally. FINDINGS: The uterus is anteflexed and retroverted and measures 8.7 x 2.6 x 4.6 cm in dimension. No focal uterine lesion is seen. Endometrial thickness is normal measuring 0.2 cm. The ovaries are normal-appearing. The right ovary measures 1.1 x 0.9 x 1.7 cm. The left ovary measures 1.4 x 0.8 x 1 cm. There is no fluid in the pelvis. US/US pelvic and transvaginal IMPRESSION: Unremarkable exam.
== END 2021-09-28 10:33 | disposition home or self-care (01) ==
LOC: HO.US 10:32
PROVIDERS: PCP Internal Medicine; Visit Provider Obstetrics & Gynecology
DX: N95.0 Postmenopausal bleeding (principal)
CPT/HCPCS: 76830; 76856

== ENCOUNTER → 2021-10-12 10:16 | Outpatient (BNVA) | payer MEDICARE, SELFPAY | PROVIDERS: PCP Internal Medicine; Visit Provider Obstetrics & Gynecology | DX: N95.0 Postmenopausal bleeding (principal); N81.4 Uterovaginal prolapse, unspecified; T14.8XXD Other injury of unspecified body region, subsequent encounter | CPT/HCPCS: 99212 ==

== ENCOUNTER → 2021-11-09 08:58 | Outpatient (BNVA) | payer MEDICARE, SELFPAY | PROVIDERS: PCP Internal Medicine; Visit Provider Obstetrics & Gynecology | DX: S30.814D Abrasion of vagina and vulva, subsequent encounter (principal); N81.4 Uterovaginal prolapse, unspecified | CPT/HCPCS: 99212 ==

== ENCOUNTER 2021-11-19 08:23 | Outpatient (REF) | payer MEDICARE, SELFPAY ==
[2021-11-19 11:20] LABS: Binax Internal Control QC Valid; Binax Now Covid-19 Ag Negative (Negative)
== END 2021-11-19 08:24 | disposition home or self-care (01) ==
LOC: HO.HMGCLDS 08:23
PROVIDERS: Visit Provider Internal Medicine
DX: Z20.822 Contact with and (suspected) exposure to COVID-19 (principal)
CPT/HCPCS: 36415; C9803

== ENCOUNTER 2021-11-30 12:48 | Outpatient (REF) | payer MEDICARE, SELFPAY | END 2021-11-30 12:49 | disposition home or self-care (01) | LOC: HO.US 12:48 | PROVIDERS: PCP Internal Medicine; Visit Provider Urology | DX: Z13.89 Encounter for screening for other disorder (principal) ==

== ENCOUNTER 2021-11-30 12:54 | Outpatient (REF) | payer MEDICARE, SELFPAY ==
--- NOTE | ~2021-11-30 | US_ITS ---
EXAMINATION: US RETROPERITONEAL LIMITED (RENAL ONLY) CLINICAL INFORMATION: Calculus of kidney. COMPARISON: CT abdomen and pelvis 04/05/2021. TECHNIQUE: Real-time imaging of the kidneys. FINDINGS: RIGHT KIDNEY: 10.1 x 4.8 x 7.0 cm (SAG x AP x TRV). The kidney is normal in size, contour, and echogenicity. Renal cortical thickness is normal. No focal parenchymal lesions or hydronephrosis. There is an echogenic stone with acoustic shadowing in midpole measuring 0.34 x 0.21 x 0.32 cm. There is no caliectasis or hydronephrosis seen. LEFT KIDNEY: 11.7 x 6.3 x 6.2 cm (SAG x AP x TRV). The kidney is normal in size, contour, and echogenicity. Renal cortical thickness is normal. There is a complex anechoic upper pole cyst with septation measuring 4.2 x 3.2 x 2.8 cm. There are a few echogenic stones measuring 0.31 x 0.26 x 0.26 cm, 0.31 x 0.22 x 0.26 cm in lower pole and 0.27 x 0.40 x 0.36 cm upper pole. US/US renal BI IMPRESSION: Bilateral nonobstructive echogenic renal calculi. No caliectasis or hydronephrosis. Complex Bosniak type II upper pole left renal cyst.
== END 2021-11-30 12:55 | disposition home or self-care (01) ==
LOC: HO.HMGCX 12:54
PROVIDERS: PCP Internal Medicine; Visit Provider Urology
DX: N20.0 Calculus of kidney (principal)
CPT/HCPCS: 76775

== ENCOUNTER → 2022-01-05 09:04 | Outpatient (BNVA) | payer MEDICARE, SELFPAY | PROVIDERS: PCP Internal Medicine; Visit Provider Obstetrics & Gynecology | DX: S30.814D Abrasion of vagina and vulva, subsequent encounter (principal); N81.4 Uterovaginal prolapse, unspecified | CPT/HCPCS: 99212 ==

== ENCOUNTER 2022-01-27 12:44 | Outpatient (REF) | payer MEDICARE, SELFPAY ==
[2022-01-27 13:45] LABS: MANUAL DIFF FLAG NO
[2022-01-27 13:54] LABS: Basophils Percent Auto 0.4 % (0-2); Eosinophils Absolute Auto 0.2 X10*3/uL (0.0-0.4); Eosinophils Percent Auto 2.9 % (0-4); Hematocrit 31.8 % (37.0-47.0); Imm Gran Abs Auto 0.03 X10*3/uL (0.00-0.03); Imm Gran Pct Auto 0.4 % (0.0-0.4); Lymphocytes Percent Auto 28.4 % (20-40); Mean Corpuscular HGB Conc 31.4 g/dl (31.0-35.0); Mean Corpuscular Hemoglobin 32.2 pg (27.0-33.0); Mean Corpuscular Volume 102.3 fL (80.0-98.0); Mean Platelet Volume 10.6 fL (9.4-12.3); Monocytes Absolute Auto 0.5 X10*3/uL (0.1-1.2); Monocytes Percent Auto 7.1 % (2-11); Neutrophils Absolute Auto 4.2 x10*3/uL (2.0-8.3); Neutrophils Percent Auto 60.8 % (45-73); Platelet Count 383 X10*3/uL (160-400); Red Blood Count 3.11 X10*6/uL (4.20-5.50); Red Cell Distribution Width 15.5 % (11.0-16.0); White Blood Count 6.9 X10*3/uL (4.8-10.8)
[2022-01-27 14:32] LABS: Ferritin 135 ng/mL (10-250)
== END 2022-01-27 12:45 | disposition home or self-care (01) ==
LOC: HO.HMGCLDS 12:44
PROVIDERS: PCP Internal Medicine; Visit Provider Internal Medicine
DX: D50.0 Iron deficiency anemia secondary to blood loss (chronic) (principal); K57.90 Diverticulosis of intestine, part unspecified, without perforation or abscess without bleeding
CPT/HCPCS: 36415; 82728; 85025

== ENCOUNTER 2022-02-10 17:04 | Outpatient (REF) | payer MEDICARE, SELFPAY | END 2022-02-10 17:05 | disposition home or self-care (01) | LOC: HO.LNP 17:04 | PROVIDERS: Visit Provider Physician Assistant | DX: N39.0 Urinary tract infection, site not specified (principal) | CPT/HCPCS: 87086 ==

== ENCOUNTER 2022-04-20 10:38 | Outpatient (REF) | payer MEDICARE, SELFPAY ==
[2022-04-20 11:35] LABS: MANUAL DIFF FLAG NO
[2022-04-20 11:39] LABS: Basophils Percent Auto 0.4 % (0-2); Eosinophils Absolute Auto 0.1 X10*3/uL (0.0-0.4); Eosinophils Percent Auto 1.9 % (0-4); Hematocrit 43.1 % (37.0-47.0); Imm Gran Abs Auto 0.02 X10*3/uL (0.00-0.03); Imm Gran Pct Auto 0.3 % (0.0-0.4); Lymphocytes Absolute Auto 2.1 X10*3/uL (1.2-4.9); Mean Corpuscular HGB Conc 32.5 g/dl (31.0-35.0); Mean Corpuscular Hemoglobin 30.6 pg (27.0-33.0); Mean Corpuscular Volume 94.1 fL (80.0-98.0); Mean Platelet Volume 11.1 fL (9.4-12.3); Monocytes Absolute Auto 0.6 X10*3/uL (0.1-1.2); Monocytes Percent Auto 8.2 % (2-11); Neutrophils Absolute Auto 4.4 x10*3/uL (2.0-8.3); Neutrophils Percent Auto 60.2 % (45-73); Platelet Count 279 X10*3/uL (160-400); Red Blood Count 4.58 X10*6/uL (4.20-5.50); Red Cell Distribution Width 13.2 % (11.0-16.0); White Blood Count 7.2 X10*3/uL (4.8-10.8)
[2022-04-20 12:15] LABS: Alanine Aminotransferase 15 U/L (0-31); Albumin Level 4.4 g/dL (3.5-5.0); Alkaline Phosphatase 100 U/L (39-117); Anion Gap 16 (12-20); Aspartate Amino Transferase 17 U/L (5-31); Bilirubin Total 0.3 mg/dL (0.0-1.0); Blood Urea Nitrogen 11 mg/dL (9-16); Calcium 9.6 mg/dL (8.4-10.2); Carbon Dioxide 22 mmol/L (22-29); Chloride 106 mmol/L (96-108); Estimated Glomerular Filt Rate > 60; Glucose Random 96 mg/dL (60-115); Potassium 4.5 mmol/L (3.3-5.1); Sodium 139 mmol/L (135-145); Total Protein 7.5 g/dL (6.5-8.0)
== END 2022-04-20 10:39 | disposition home or self-care (01) ==
LOC: HO.HMGCLDS 10:38
PROVIDERS: PCP Internal Medicine; Visit Provider Internal Medicine
DX: I10 Essential (primary) hypertension (principal); D50.0 Iron deficiency anemia secondary to blood loss (chronic)
CPT/HCPCS: 36415; 80053; 85025

== ENCOUNTER 2022-06-09 07:46 | Outpatient (REF) | payer MEDICARE, SELFPAY ==
[2022-06-09 08:51] LABS: COVID-19 Test Negative (Negative); IDNOW Serial# 55D5AD1C
== END 2022-06-09 07:47 | disposition home or self-care (01) ==
LOC: HO.LAB 07:46
PROVIDERS: Visit Provider Internal Medicine
DX: Z20.822 Contact with and (suspected) exposure to COVID-19 (principal)
CPT/HCPCS: 87635; C9803

== ENCOUNTER 2022-09-17 11:26 | Outpatient (REF) | payer MEDICARE, SELFPAY ==
[2022-09-17 12:18] LABS: Influenza A PCR NEGATIVE (Negative); Influenza B PCR NEGATIVE (Negative); Resp Syncy Virus RNA Qual PCR NEGATIVE (Negative); SARS COV2 PCR INHOUSE NEGATIVE (Negative)
== END 2022-09-17 11:27 | disposition home or self-care (01) ==
LOC: HO.LNP 11:26
PROVIDERS: Visit Provider Emergency Medicine
DX: Z20.822 Contact with and (suspected) exposure to COVID-19 (principal); R68.89 Other general symptoms and signs
CPT/HCPCS: 0241U

== ENCOUNTER 2022-11-23 09:50 | Outpatient (REF) | payer MEDICARE, SELFPAY ==
[2022-11-23 16:02] LABS: Alanine Aminotransferase 25 U/L (0-31); Albumin Level 4.3 g/dL (3.5-5.0); Alkaline Phosphatase 114 U/L (39-117); Anion Gap 13 (12-20); Aspartate Amino Transferase 24 U/L (5-31); Bilirubin Total 0.4 mg/dL (0.0-1.0); Blood Urea Nitrogen 10 mg/dL (9-16); Calcium 9.7 mg/dL (8.4-10.2); Carbon Dioxide 24 mmol/L (22-29); Chloride 104 mmol/L (96-108); Estimated Glomerular Filt Rate > 60; Glucose Random 99 mg/dL (60-115); Potassium 4.4 mmol/L (3.3-5.1); Sodium 137 mmol/L (135-145); Total Protein 7.3 g/dL (6.5-8.0)
== END 2022-11-23 09:51 | disposition home or self-care (01) ==
LOC: HO.HMGCLDS 09:50
PROVIDERS: PCP Internal Medicine; Visit Provider Internal Medicine
DX: I10 Essential (primary) hypertension (principal); L30.9 Dermatitis, unspecified
CPT/HCPCS: 36415; 80053

== ENCOUNTER 2023-04-18 07:49 | Outpatient (REF) | payer MEDICARE, SELFPAY ==
--- NOTE | ~2023-04-18 | MM_ITS ---
EXAMINATION: MM SCREENING DIGITAL BREAST TOMOSYNTHESIS, BILATERAL CLINICAL INFORMATION: Screening. Asymptomatic. The lifetime risk of breast cancer based on the Tyrer-Cuzick Model is 13%. COMPARISON: Mammography: 03/16/2021, 11/05/2019, 07/11/2017 TECHNIQUE: Digital breast tomosynthesis is performed in both the craniocaudal and mediolateral oblique views along with computer-aided detection (CAD). Synthesized 2D images are generated from the tomosynthesis. Additional right CC view is provided. FINDINGS: There are scattered areas of fibroglandular density (ACR BI-RADS breast composition Category b). There are no significant masses, abnormal calcifications, or other abnormalities. Parenchymal pattern is similar to prior studies. There is no developing density or architectural abnormality. The axilla are unremarkable. There are dermal lesions overlying the mid 5:00 right breast. MM/MM tomosynthesis screening BI IMPRESSION: No mammographic evidence of malignancy. ASSESSMENT: BI-RADS 2: Benign RECOMMENDATION: Routine annual mammography screening. This patient's information was entered into a reminder system with a target due date for their next mammogram.
== END 2023-04-18 07:50 | disposition home or self-care (01) ==
LOC: HO.MAMMO 07:49
PROVIDERS: PCP Internal Medicine; Visit Provider Internal Medicine
DX: Z12.31 Encounter for screening mammogram for malignant neoplasm of breast (principal)
CPT/HCPCS: 77063; 77067

== ENCOUNTER 2023-07-12 12:51 | Outpatient (AMB) | payer MEDICARE, SELFPAY ==
--- NOTE | 2023-07-12 12:52 | A.OFFPC_ITS ---
Vital Signs 07/12/23 12:53 Height 5 ft 3 in Weight 183 lb BMI 32.4 BP 114/70 Blood Pressure Location Lt brachial Position Sitting Pulse 96 Pulse Source Pulse Oximeter Pulse Oximetry (%) 96 Oxygen Delivery Method Room Air Intake Visit Reasons: follow up Intake Note: Pt is here today for a follow up visit. Allergies lidocaine Allergy (Intermediate, Verified 07/12/23 12:54) hives penicillin V Allergy (Intermediate, Verified 07/12/23 12:54) rash erythromycin base Allergy (Unknown, Verified 07/12/23 12:54) Rash Medication List - Last Reconciled 07/12/23 by Shane Santos MD losartan 50 mg PO DAILY triamcinolone acetonide 0.1% small amount topical daily; 30 days Tobacco use date assessed: 07/12/23 Fall risk assessment: No Falls in past year Last assessed Fall Risk: 07/12/23 Dental Screening Dental Screen Date: 07/12/23 Did you have a dental visit in the last 12 months?: Yes Did you have a dental problem in the last 6 months where you did not have access to dental care?: No Was dental information given to patient?: Patient has dentist HPI follow up HPI Details Patient is a 67-year-old female came in today for six-month follow-up appointment for hypertension Patient first-degree sunburn base due to swimming. She also eczema in her and is requesting a refill steroid cream. Would stay son the rash on face is better. Patient is on losartan 50 mg tolerating medication no side effects. Blood pressure is stable, she is due for labs. History of bladder sling surgery and is doing very well now. BMI is elevated at 32.4 patient is obese need to lose weight History of iron deficiency anemia I will be repeating CBC today Follow-up 6 months labs are needed before visit in 6 months as well PFSH Medical History Hx of breast cancer Hx of essential hypertension Surgical History No pertinent past surgical history Family History Maternal Grandmother Breast cancer Sister Breast cancer Father Dementia Maternal Aunt Breast cancer Mother No problems noted. Paternal Grandmother Cancer of thyroid Brother No problems noted. Brother No problems noted. Brother No problems noted. Son No problems noted. Son No problems noted. Son No problems noted. Daughter No problems noted. Maternal Grandfather Mental health disorder Social History Housing: Apartment Alcohol intake: never Patient Tobacco Use Status: Never used Tobacco e-Cigarette/Vaping Use: Never Used Second Hand Smoke Exposure: Yes service: No Current occupational status: employed Sexual orientation: Straight/Heterosexual Gender identity: Female Cognitive needs: No Hearing needs: No Vision needs: Yes Questionnaire PHQ-9 Over the last 2 weeks, how often have you been bothered by any of the following problems? 1. Little interest or pleasure in doing things: not at all 2. Feeling down, depressed, or hopeless: not at all 3. Trouble falling or staying asleep, or sleeping too much: not at all 4. Feeling tired or having little energy: more than half the days (due to work) 5. Poor appetite or overeating: not at all 6. Feeling bad about yourself - or that you are a failure or have let yourself or your family down: not at all 7. Trouble concentrating on things, such as reading the newspaper or watching television: not at all 8. Moving or speaking so slowly that other people could have noticed. Or the opposite - being so fidgety or restless that you have been moving around a lot more than usual: not at all 9. Thoughts that you would be better off or of hurting yourself in some way: not at all Total score: 2 Depression Screening Interpretation: Negative [id number] - PHQ-9 Billing: Yes Source: Developed by Drs. Sammy Phillips, Trinidad Peterson, Binh Hayes and colleagues, with an educational emory from [employer] Thrive Questionnaire Date Thrive assessed: 04/20/22 AUDIT C Alcohol Use Questionnaire (AUDIT-C) 1. How often do you have a drink containing alcohol?: Never 3. How often do you have six or more drinks on one occasion?: Never Total Score: 0 Score Reviewed/Action Taken: Yes Review of Systems Const Denies chills and Denies fever(s) ENT Denies epistaxis and Denies nasal discharge Card Denies chest pain Resp Denies chest congestion, Denies cough and Denies hemoptysis GI Denies diarrhea and Denies nausea Neuro Reports no additional complaints Psych Reports no additional complaints Endo Reports no additional complaints Physical exam (Primary Care) Vital Signs: Last Vital Signs Pulse 96 07/12/23 12:53 BP 114/70 07/12/23 12:53 Pulse Ox 96 07/12/23 12:53 Oxygen Delivery Method Room Air 07/12/23 12:53 BMI result Body Mass Index 32.4 Tobacco/Smoking Status: Tobacco use Status Tobacco use date assessed 07/12/23 07/12/23 12:57 Patient Tobacco Use Status Never used Tobacco 07/12/23 12:57 e-Cigarette/Vaping Use Never Used 07/12/23 12:57 Depression Screening Interpretation: Negative Thrive Assessment: Date of Thrive Assessment Date Thrive assessed 04/20/22 07/12/23 12:57 Const General: cooperative, comfortable and no acute distress Orientation/consciousness: patient oriented x3 HENMT Head: Yes normocephalic Eyes General: appearance normal, both eyes and all related structures Neck Neck: Yes supple Resp Effort & Inspection: normal respiratory effort, no cough and no stridor Cardio Rhythm: regular rhythm Heart sounds: S1 normal heart sound present and S2 normal heart sound present Skin Other: First-degree sunburn face General skin exam: turgor normal Neuro General: patient oriented x3, tone normal and moves all extremities Extrem Right lower extremity: no edema Left lower extremity: no edema Assessment and Plan Assessment & Plan (1) Hypertension, essential: Code(s): I10 - Essential (primary) hypertension (2) Eczema: Code(s): L30.9 - Dermatitis, unspecified Qualifiers: Eczema type: intrinsic Qualified Code(s): L20.84 - Intrinsic (allergic) eczema (3) Anemia: Code(s): D64.9 - Anemia, unspecified Qualifiers: Anemia type: iron deficiency Iron deficiency anemia type: chronic blood loss Qualified Code(s): D50.0 - Iron deficiency anemia secondary to blood loss (chronic) (4) Obesity due to excess calories: Code(s): E66.09 - Other obesity due to excess calories Qualifiers: Body mass index: BMI 32.0-32.9 Obesity classification: adult class 1 (BMI 30 - 34.9) Serious obesity comorbidity presence: with serious comorbidity Qualified Code(s): E66.09 - Other obesity due to excess calories; Z68.32 - Body mass index [BMI] 32.0-32.9, adult (5) Sunburn of first degree: Code(s): L55.0 - Sunburn of first degree Plan Patient is a 67-year-old female came in today for six-month follow-up appointment for hypertension Patient first-degree sunburn base due to swimming. She also eczema in her and is requesting a refill steroid cream. Would stay son the rash on face is better. Patient is on losartan 50 mg tolerating medication no side effects. Blood pressure is stable, she is due for labs. History of bladder sling surgery and is doing very well now. BMI is elevated at 32.4 patient is obese need to lose weight History of iron deficiency anemia I will be repeating CBC today Follow-up 6 months labs are needed before visit in 6 months as well Orders: Orders Comprehensive Met. Panel Today D64.9 - Anemia, unspecified, I10 - Essential (primary) hypertension, L30.9 - Dermatitis, unspecified LDL Cholesterol Direct Today D64.9 - Anemia, unspecified, I10 - Essential (primary) hypertension, L30.9 - Dermatitis, unspecified Complete Blood Count Auto Diff Today D64.9 - Anemia, unspecified, I10 - Essential (primary) hypertension, L30.9 - Dermatitis, unspecified Comprehensive [place]. Panel Fast 5 Months D64.9 - Anemia, unspecified, E66.09 - Other obesity due to excess calories, I10 - Essential (primary) hypertension, L30.9 - Dermatitis, unspecified Lipid Panel 5 Months D64.9 - Anemia, unspecified, E66.09 - Other obesity due to excess calories, I10 - Essential (primary) hypertension, L30.9 - Dermatitis, unspecified Complete Blood Count Auto Diff 5 Months D64.9 - Anemia, unspecified, E66.09 - Other obesity due to excess calories, I10 - Essential (primary) hypertension, L30.9 - Dermatitis, unspecified Medications: Refilled triamcinolone acetonide 0.1% small amount topical daily; 15 grams 2RF 30 days losartan 50 mg PO DAILY 90 tabs 1RF Coding Level of Care Code Est Pt Level 4 (96881) Diagnoses Hypertension, essential I10 Eczema L20.84 Eczema type: intrinsic Anemia D50.0 Anemia type: iron deficiency Iron deficiency anemia type: chronic blood loss Obesity due to excess calories E66.09; Z68.32 Body mass index: BMI 32.0-32.9 Obesity classification: adult class 1 (BMI 30 - 34.9) Serious obesity comorbidity presence: with serious comorbidity Sunburn of first degree L55.0
[2023-07-12 12:53] VITALS: BP 114/70; PULSE 96; O2SAT 96; BMI 32.4
== END 2023-07-12 14:31 | disposition home or self-care (01) ==
PROVIDERS: PCP Internal Medicine; Visit Provider Internal Medicine
DX: I10 Essential (primary) hypertension (principal); E66.09 Other obesity due to excess calories; Z68.32 Body mass index [BMI] 32.0-32.9, adult; L20.84 Intrinsic (allergic) eczema; D50.0 Iron deficiency anemia secondary to blood loss (chronic); L55.0 Sunburn of first degree
CPT/HCPCS: 99214

== ENCOUNTER 2023-07-12 13:10 | Outpatient (REF) | payer MEDICARE, SELFPAY ==
[2023-07-12 16:07] LABS: MANUAL DIFF FLAG NO
[2023-07-12 16:39] LABS: Alanine Aminotransferase 15 U/L (0-31); Albumin Level 4.3 g/dL (3.5-5.0); Alkaline Phosphatase 95 U/L (39-117); Anion Gap 12 (12-20); Aspartate Amino Transferase 19 U/L (5-31); Bilirubin Total 0.4 mg/dL (0.0-1.0); Blood Urea Nitrogen 13 mg/dL (9-16); Calcium 9.5 mg/dL (8.4-10.2); Carbon Dioxide 24 mmol/L (22-29); Chloride 104 mmol/L (96-108); Estimated Glomerular Filt Rate > 60; Glucose Random 100 mg/dL (60-115); Sodium 136 mmol/L (135-145); Total Protein 7.5 g/dL (6.5-8.0)
[2023-07-12 16:57] LABS: Basophils Percent Auto 0.5 % (0-2); Eosinophils Absolute Auto 0.2 X10*3/uL (0.0-0.4); Eosinophils Percent Auto 2.4 % (0-4); Hematocrit 44.7 % (37.0-47.0); Hemoglobin 14.4 g/dl (12.0-16.0); Imm Gran Abs Auto 0.03 X10*3/uL (0.00-0.03); Imm Gran Pct Auto 0.4 % (0.0-0.4); Lymphocytes Absolute Auto 2.2 X10*3/uL (1.2-4.9); Lymphocytes Percent Auto 28.1 % (20-40); Mean Corpuscular HGB Conc 32.2 g/dl (31.0-35.0); Mean Corpuscular Hemoglobin 31.3 pg (27.0-33.0); Mean Corpuscular Volume 97.2 fL (80.0-98.0); Mean Platelet Volume 11.9 fL (9.4-12.3); Monocytes Absolute Auto 0.6 X10*3/uL (0.1-1.2); Monocytes Percent Auto 7.3 % (2-11); Neutrophils Absolute Auto 4.9 x10*3/uL (2.0-8.3); Neutrophils Percent Auto 61.3 % (45-73); Platelet Count 311 X10*3/uL (160-400); Red Cell Distribution Width 13.6 % (11.0-16.0); White Blood Count 7.9 X10*3/uL (4.8-10.8)
[2023-07-14 03:48] LABS: LDL Cholesterol Direct 57 mg/dL (<100)
== END 2023-07-12 13:11 | disposition home or self-care (01) ==
LOC: HO.HMGCLDS 13:10
PROVIDERS: PCP Internal Medicine; Visit Provider Internal Medicine
DX: I10 Essential (primary) hypertension (principal); L30.9 Dermatitis, unspecified; D64.9 Anemia, unspecified
CPT/HCPCS: 36415; 80053; 83721; 85025

== ENCOUNTER 2023-10-14 08:16 | Outpatient (AMB) | payer MEDICARE, SELFPAY ==
--- NOTE | 2023-10-14 09:17 | MHC.OFFWIV ---
Intake Vital Signs 10/14/23 09:18 Height 5 ft 3 in Weight 184 lb 8 oz BMI 32.7 BP 136/78 Blood Pressure Location Rt brachial Position Sitting Pulse 97 Pulse Source Pulse Oximeter Temp 96.7 F L Temp Source Temporal Artery Scan Pulse Oximetry (%) 100 Oxygen Delivery Method Room Air Intake Visit Reasons: EST/sore thoat and sinus drainage/[phone] Intake Note: Pt is here c/o sore throat for 6 days along with a bad cough. Patient Tobacco Use Status: Never used Tobacco Allergies lidocaine Allergy (Intermediate, Verified 10/14/23 09:17) hives penicillin V Allergy (Intermediate, Verified 10/14/23 09:17) rash erythromycin base Allergy (Unknown, Verified 10/14/23 09:17) Rash Medication List - Last Reconciled 10/14/23 by Shane Santos MD losartan 50 mg PO DAILY triamcinolone acetonide 0.1% small amount topical daily; 30 days Do you need a note to return to daycare/school/sports/work: No HPI EST/sore thoat and sinus drainage/[phone] HPI Details Patient is 67 came today to be evaluated for cough and congestion for the past 4 days Patient is vaccinated against COVID She has no body aches and pains, her symptoms are mostly around her sinuses and head She is coughing up blood or mucus mostly grayish to slightly yellow. Also complaining of sore throat Her strep test is negative No nausea vomiting diarrhea, no chest pain no shortness of breath no abdominal pain. No fever no chills Patient is allergic to penicillin and azithromycin I am treating her with doxycycline 100 mg b.i.d. for 7 days Patient is already pushing more fluids. [facility] Medical History Hx of breast cancer Hx of essential hypertension Surgical History No pertinent past surgical history Family History Maternal Grandmother Breast cancer Sister Breast cancer Father Dementia Maternal Aunt Breast cancer Mother No problems noted. Paternal Grandmother Cancer of thyroid Brother No problems noted. Brother No problems noted. Brother No problems noted. Son No problems noted. Son No problems noted. Son No problems noted. Daughter No problems noted. Maternal Grandfather Mental health disorder Social History Housing: Apartment Alcohol intake: never Patient Tobacco Use Status: Never used Tobacco e-Cigarette/Vaping Use: Never Used Second Hand Smoke Exposure: Yes service: No Current occupational status: employed Sexual orientation: Straight/Heterosexual Gender identity: Female Cognitive needs: No Hearing needs: No Vision needs: Yes Review of Systems Const All systems reviewed & are unremarkable except as noted in HPI and below Physical Exam Vital Signs: Last Vital Signs Temp 96.7 F L 10/14/23 09:18 Pulse 97 10/14/23 09:18 BP 136/78 10/14/23 09:18 Pulse Ox 100 10/14/23 09:18 Oxygen Delivery Method Room Air 10/14/23 09:18 BMI result Body Mass Index 32.7 Const General: no acute distress HEENT Other: Mild throat erythema present, uvula midline, no exudate. Ears: mastoids normal General nose exam: Normal external nose present Throat: Yes posterior oropharynx abnormal Neck Neck: Yes no lymphadenopathy Resp Effort & Inspection: normal respiratory effort Auscultation: clear to auscultation bilaterally Cardio Other: S1 S2 Psych Mental Status: mental status grossly normal Results AMB Rapid Strep AMB Rapid Strep Negative Last Edit by Ingrid Quijano CMA on 10/14/23 09:43 Assessment & Plan Assessment & Plan (1) Upper respiratory tract infection: Code(s): J06.9 - Acute upper respiratory infection, unspecified Qualifiers: URI type: acute pharyngitis Pharyngitis/tonsillitis etiology: unspecified etiology Qualified Code(s): J02.9 - Acute pharyngitis, unspecified (2) Acute pharyngitis: Code(s): J02.9 - Acute pharyngitis, unspecified Qualifiers: Pharyngitis/tonsillitis etiology: other specified organisms Qualified Code(s): J02.8 - Acute pharyngitis due to other specified organisms Plan Patient is 67 came today to be evaluated for cough and congestion for the past 4 days Patient is vaccinated against COVID She has no body aches and pains, her symptoms are mostly around her sinuses and head She is coughing up blood or mucus mostly grayish to slightly yellow. Also complaining of sore throat Her strep test is negative No nausea vomiting diarrhea, no chest pain no shortness of breath no abdominal pain. No fever no chills Patient is allergic to penicillin and azithromycin I am treating her with doxycycline 100 mg b.i.d. for 7 days Patient is already pushing more fluids. Medications: New doxycycline hyclate 100 mg PO BID 14 tabs 0RF 7 days Coding Level of Care Code Est Pt Level 3 (91624) Diagnoses Acute pharyngitis, unspecified etiology J02.9 URI type: acute pharyngitis Pharyngitis/tonsillitis etiology: unspecified etiology Acute pharyngitis due to other specified organisms J02.8 Pharyngitis/tonsillitis etiology: other specified organisms
[2023-10-14 09:18] VITALS: BP 136/78; PULSE 97; TEMP 35.9; O2SAT 100; BMI 32.7
== END 2023-10-14 09:45 | disposition home or self-care (01) ==
PROVIDERS: PCP Internal Medicine; Visit Provider Internal Medicine
DX: J02.9 Acute pharyngitis, unspecified (principal); J02.8 Acute pharyngitis due to other specified organisms
CPT/HCPCS: 87880; 99213

== ENCOUNTER 2023-10-31 08:40 | Emergency (ER) | payer MEDICARE, SELFPAY ==
[2023-10-31 08:51] VITALS: BP 153/81; PULSE 91; RESP 20; TEMP 36.6; O2SAT 97; BMI 31.9
[2023-10-31 12:03] LABS: Influenza A PCR NEGATIVE (Negative); Influenza B PCR NEGATIVE (Negative); Resp Syncy Virus RNA Qual PCR NEGATIVE (Negative); SARS COV2 PCR INHOUSE NEGATIVE (Negative)
== END 2023-10-31 15:15 | disposition left against medical advice (07) ==
PROVIDERS: Emergency Provider Emergency Medicine; PCP Internal Medicine
DX: R05.9 Cough, unspecified (principal); Z20.822 Contact with and (suspected) exposure to COVID-19; Z20.828 Contact with and (suspected) exposure to other viral communicable diseases
CPT/HCPCS: 0241U; 99281; 99283

== ENCOUNTER 2023-11-01 08:07 | Outpatient (AMB) | payer MEDICARE, SELFPAY ==
[2023-11-01 08:39] VITALS: BP 112/70; PULSE 84; TEMP 36.1; O2SAT 98; BMI 32.9
--- NOTE | 2023-11-01 08:39 | AM.OFFWIN_ITS ---
Intake Vital Signs 11/01/23 08:39 Height 5 ft 3 in Weight 186 lb BMI 32.9 BP 112/70 Blood Pressure Location Lt brachial Position Sitting Pulse 84 Pulse Source Pulse Oximeter Temp 97.0 F Pulse Oximetry (%) 98 Oxygen Delivery Method Room Air Intake Visit Reasons: EP sinus congestion headache [phone] Intake Note: pt is here today for sinus congestion headaches started Patient Tobacco Use Status: Never used Tobacco Allergies lidocaine Allergy (Intermediate, Verified 11/01/23 08:40) hives penicillin V Allergy (Intermediate, Verified 11/01/23 08:40) rash erythromycin base Allergy (Unknown, Verified 11/01/23 08:40) Rash Do you need a note to return to daycare/school/sports/work: Yes HPI HPI Comments History of Present Illness Details This is a 67-year-old female with a past medical history of hypertension presenting for evaluation of sinus congestion and cough that has been waxing and waning since 2022. Patient was seen on October 14, 2023 prescribed a 7 day course of doxycycline which she states improved her symptoms however did not completely resolve them. Patient states that her symptoms worsened approximately 4 days ago approximately 2 days after her developed symptoms. Patient denies having any fevers, chills, ear pain, chest pain or shortness of breath. Patient went to the emergency department yesterday however left without being seen. Patient's respiratory swab of from that emergency department visit was negative for COVID, influenza and RSV. [facility] Medical History Hx of breast cancer Hx of essential hypertension Surgical History No pertinent past surgical history Family History Maternal Grandmother Breast cancer Sister Breast cancer Father Dementia Maternal Aunt Breast cancer Mother No problems noted. Paternal Grandmother Cancer of thyroid Brother No problems noted. Brother No problems noted. Brother No problems noted. Son No problems noted. Son No problems noted. Son No problems noted. Daughter No problems noted. Maternal Grandfather Mental health disorder Social History Housing: Apartment Alcohol intake: never Patient Tobacco Use Status: Never used Tobacco e-Cigarette/Vaping Use: Never Used Second Hand Smoke Exposure: Yes service: No Current occupational status: employed Sexual orientation: Straight/Heterosexual Gender identity: Female Cognitive needs: No Hearing needs: No Vision needs: Yes Review of Systems Const All systems reviewed & are unremarkable except as noted in HPI and below Denies chills, Denies fatigue and Denies fever(s) Eyes Reports no additional complaints ENT Reports no additional complaints, Denies otalgia, Reports nasal congestion and Reports sore throat (with cough) Card Reports no additional complaints and Denies dyspnea Resp Reports cough (worse at night) and Denies dyspnea GI Reports no additional complaints Reports no additional complaints Skin/Breast Reports as per HPI Endo Denies fatigue Physical Exam Pt is afebrile. Const General: cooperative, healthy appearing, comfortable and no acute distress Nutritional Appearance: well nourished Orientation/consciousness: patient oriented x3 Limitations: no limitations HEENT Head: Yes normal to inspection Ears: hearing grossly normal bilaterally, external ears normal, TM's normal bilaterally and EAC's normal General nose exam: Normal external nose present and Normal nares present Face and sinus: Yes normal facial exam and No sinus tenderness Mouth: Normal oral and palatal mucosa present Teeth and gingiva: dentition normal Throat: Yes posterior oropharynx normal (there is no edema, erythema or exudates of the posterior oropharynx) Eyes Alignment and Position: alignment normal Periorbital: periorbital findings normal Eyelids: Yes eyelids normal Conjunctivae: conjunctival abnormal (injected; no exudates) bilateral Pupils: Equal, round and reactive pupils present EOM: EOMs intact bilaterally Neck Lymphatic: no lymphadenopathy noted Resp Effort & Inspection: normal respiratory effort, able to speak in complete sentences, no cough, respiratory effort not decreased and no respiratory distress Auscultation: clear to auscultation bilaterally Cardio Rate: regular rate Rhythm: regular rhythm Skin General skin exam: no rashes or lesions noted Neuro General: patient oriented x3 Cranial nerves: Yes Equal, round and reactive pupils present Psych Appearance: grossly normal Mental Status: mental status grossly normal Insight: Good insight present (Psych) Judgement: Good judgement present (Psych) Results Reviewed Results Reviewed: Reviewed negative results of 12.18 respiratory panel from ED visit. Assessment & Plan Assessment & Plan (1) Upper respiratory tract infection: Code(s): J06.9 - Acute upper respiratory infection, unspecified Qualifiers: URI type: acute pharyngitis Pharyngitis/tonsillitis etiology: unspecified etiology Qualified Code(s): J02.9 - Acute pharyngitis, unspecified Plan: Tessalon perles TID prn cough, increase clear fluids daily, rest as tolerated. Medications: New benzonatate 100 mg PO TID 20 caps 0RF Coding Level of Care Code Est Pt Level 3 (11587) Diagnoses Acute pharyngitis, unspecified etiology J02.9 URI type: acute pharyngitis Pharyngitis/tonsillitis etiology: unspecified etiology Time Spent (min) 20
== END 2023-11-01 09:04 | disposition home or self-care (01) ==
PROVIDERS: PCP Internal Medicine; Visit Provider Physician Assistant
DX: J02.9 Acute pharyngitis, unspecified (principal)
CPT/HCPCS: 99213

== ENCOUNTER 2023-11-05 07:02 | Emergency (ER) | payer MEDICARE, SELFPAY ==
--- NOTE | ~2023-11-05 | XR_ITS ---
EXAMINATION: XR CHEST CLINICAL INFORMATION: Cold for one month with difficulty breathing and coarse voice. COMPARISON: CT abdomen pelvis 04/05/2021 TECHNIQUE: 2 views of the chest were obtained. FINDINGS: Multiple external artifacts overlie the thorax. Normal appearance of the cardiomediastinal structures. No effusions or pneumothoraces. Normal pattern of pulmonary vasculature. No focal pulmonary consolidation. 6 mm x 3 mm well-circumscribed nodule projected over the left midlung zone. Additional 8 mm x 4 mm well-circumscribed nodule projected more laterally over the left lung zone. 4 mm x 2 mm well-circumscribed nodular opacity projected over the left lower lung zone. See CT images identifying these regions. The left lower lung zone density corresponds to a punctate calcification within the left lung base noted contemporaneously on the comparison CT abdomen and pelvis 04/05/2021. Mild multilevel anterior endplate osteophytosis of the thoracic spine. XR/XR chest 2V IMPRESSION: *No definitive acute cardiopulmonary abnormalities. *3 well-circumscribed subcentimeter nodules are present within the left lung. One of these nodules within the left lung base corresponds to a densely calcified benign-appearing pulmonary granuloma also visualized on the comparison CT of the abdomen pelvis 04/05/2021. The additional 2 nodules reside within the left middle lung zone and also are most suspicious for benign, calcified pulmonary granulomas. As clinically indicated, these findings could be further evaluated with CT of the thorax. However, these findings likely represent chronic calcified pulmonary granulomas and in the absence of high clinical suspicion for other entities, no additional imaging may be needed.
[2023-11-05 07:17] VITALS: BP 165/79; PULSE 104; RESP 104; TEMP 36.8; O2SAT 97; BMI 32.9
[2023-11-05 07:21] VITALS: O2SAT 97
--- NOTE | 2023-11-05 07:56 | ED_ITS ---
HPI - URI/Sore Throat General Chief Complaint: Upper Respiratory Symptoms Stated Complaint: cough sore throat nasal drip chest soreness Time Seen by Provider: 11/05/23 07:12 Source: patient Mode of arrival: ambulatory History of Present Illness HPI Narrative: 67-year-old female with history of hypertension presents for symptoms of nasal congestion, persistent cough, the cough is now led to chest wall discomfort and tightness but she denies any fevers or chills, reports positive sick contacts, minimal body aches and no GI or symptoms. Patient was here on Tuesday and had a negative flu/COVID. Related Data Previous Rx's Medication Instructions Recorded losartan 50 mg tablet 50 mg PO DAILY #90 tabs 07/12/23 triamcinolone acetonide 0.1 % See Rx Instructions topical DAILY 07/12/23 topical cream 30 days #15 grams doxycycline hyclate 100 mg tablet 100 mg PO BID 7 days #14 tabs 10/14/23 benzonatate 100 mg capsule 100 mg PO TID #20 caps 11/01/23 Allergies Allergy/AdvReac Type Severity Reaction Status Date / Time lidocaine Allergy Intermediate hives Verified 11/01/23 08:40 penicillin V Allergy Intermediate rash Verified 11/01/23 08:40 erythromycin base Allergy Unknown Rash Verified 11/01/23 08:40 Review of Systems Review of Systems: Pertinent positives and negatives as stated on HPI PMF Past Medical History Source: nursing notes reviewed Medical History Hx of breast cancer Hx of essential hypertension Surgical History No pertinent past surgical history Family History Family History Maternal Grandmother Breast cancer Sister Breast cancer Father Dementia Maternal Aunt Breast cancer Mother No problems noted. Paternal Grandmother Cancer of thyroid Brother No problems noted. Brother No problems noted. Brother No problems noted. Son No problems noted. Son No problems noted. Son No problems noted. Daughter No problems noted. Maternal Grandfather Mental health disorder Social History Social History Housing: Apartment Alcohol intake: never Patient Tobacco Use Status: Never used Tobacco Smoked in Last 30 Days: No e-Cigarette/Vaping Use: Never Used Second Hand Smoke Exposure: Yes Use of substances other than those prescribed or required for medical reasons: No Advance Directives: No Advance Directives Information Provided: No service: No Current occupational status: employed Sexual orientation: Straight/Heterosexual Gender identity: Female Cognitive needs: No Hearing needs: No Vision needs: Yes Physical Exam Vital Signs: Vital Signs: Last Vital Signs Temp 98.3 F 11/05/23 07:17 Pulse 104 H 11/05/23 07:17 Resp 104 H 11/05/23 07:17 BP 165/79 H 11/05/23 07:17 Pulse Ox 97 11/05/23 07:21 O2 Del Method Room Air 11/05/23 07:21 BMI result Body Mass Index 32.9 VITAL SIGNS: Reviewed. GENERAL: Well developed, well nourished, in no acute distress. HEAD: Normocephalic/atraumatic EYES: PERRLA, EOMI EARS: Ext canals without abnormality, TMs non-bulging and non-erythematous NOSE: Nares patent bilateral OROPHARYNX: no oral lesions noted, posterior pharynx clear and non-erythematous without noted tonsillar enlargement/erythema/exudates NECK: Supple, no adenopathy LUNGS: Coarse breath sounds without crackles/rhonchi/rales. No tachypnea. SpO2<97> CARDIOVASCULAR: Regular rate and rhythm without noted murmurs, no JVD or lower extremity edema. ABDOMEN: Soft, non-tender, non-distended with bowel sounds. MUSCULOSKELETAL: No tenderness, deformities, or effusions noted on gross inspection. EXTREMITIES: No cyanosis, clubbing or edema. SKIN: Inspection of the skin reveals no rashes NEUROLOGIC: Alert and oriented x 4. Strength and sensation to light touch were grossly intact x 4. Medications Administered Discontinued Medications Generic Name Dose Route Start Last Admin Trade Name Freq PRN Reason Stop Dose Admin Acetaminophen 975 mg 11/05/23 07:55 11/05/23 08:34 Acetaminophen 325 Mg Tablet PO 11/05/23 07:56 975 mg ONCE ONE Administration Ibuprofen 400 mg 11/05/23 07:55 11/05/23 08:35 Ibuprofen 400 Mg Tablet PO 11/05/23 07:56 400 mg ONCE ONE Administration Medical Decision Making Medical Decision Making MDM Narrative: 67-year-old female with history and clinical presentation, DDX: Viral syndrome- RSV/COVID/influenza, overlying bacterial pneumonia, bronchiolitis 67-year-old female in whom I have reviewed all investigations and viral testing is negative for RSV/COVID/influenza and chest x-ray does not demonstrate any new infiltrate and otherwise my interpretation is in agreement with radiology's impression. I suspect patient has viral bronchitis and will be discharged home with instructions on symptomatic treatment. Differential Diagnosis Differential Diagnoses: The differential diagnosis associated with the presentation includes Please see the discussion above Admission/Observation Consideration of admission/observation: Escalation of care including admission/observation considered Please see the discussion above Lab Data MDM Lab Attestation statement: I reviewed the patient's lab results. Please see the discussion above Labs: Lab Results 11/05/23 Range/Units 07:32 Influenza Type A (PCR) NEGATIVE (Negative) Influenza Type B (PCR) NEGATIVE (Negative) RSV RNA Qual (PCR) NEGATIVE (Negative) SARS-CoV-2 RNA (RT-PCR) NEGATIVE (Negative) Radiology Impression Discussion of test interpretation with radiology: I have reviewed the radiologist's reading. Radiologist Impression: Please see the discussion above External Record Review External record reviewed: Outpatient record, Prior outpatient labs and Prior outpatient radiology Chronic Conditions Patient?s care impacted by: Hypertension Discharge Plan Discharge Clinical Impression: Viral bronchitis, Viral syndrome Patient Disposition: Home, Self-Care Instructions: Acute Bronchitis (ED), Viral Syndrome (ED) Additional Instructions: 1. Resume all home medications as prescribed. 2. Continue to sleep in an elevated position at night as this will help with nighttime coughing. The cough can last as long as 4-6 weeks. 3. Continue to use [id number] cough medication, use caution in choosing given that you have high blood pressure. 4. Please continue to use [id number] Tylenol/ibuprofen as needed for chest wall pain, temperatures greater than 100.4 and any body aches. 5. Follow-up with your primary care doctor on Tuesday morning. No evidence of pneumonia on your chest x-ray Return to the ER for any worsening symptoms. Prescriptions: No Action doxycycline hyclate 100 mg tablet 100 mg PO BID 7 Days Qty: 14 0RF triamcinolone acetonide 0.1 % cream See Rx Instructions topical DAILY 30 Days Qty: 15 2RF Rx Instructions: small amount topical daily; losartan 50 mg tablet 50 mg PO DAILY Qty: 90 1RF benzonatate 100 mg capsule 100 mg PO TID Qty: 20 0RF Referrals: Shane Santos MD [Primary Care Provider] -
[2023-11-05 08:23] LABS: Influenza A PCR NEGATIVE (Negative); Influenza B PCR NEGATIVE (Negative); Resp Syncy Virus RNA Qual PCR NEGATIVE (Negative); SARS COV2 PCR INHOUSE NEGATIVE (Negative)
[2023-11-05] MEDS: Acetaminophen 325 MG TABLET 975 MG PO (08:34)
[2023-11-05] MEDS: Ibuprofen 400 MG TABLET PO (08:35)
== END 2023-11-05 09:01 | disposition home or self-care (01) ==
PROVIDERS: Emergency Provider Student in an Organized Health Care Education/Training Program; PCP Internal Medicine
DX: J20.8 Acute bronchitis due to other specified organisms (principal); B34.9 Viral infection, unspecified; I10 Essential (primary) hypertension; Z20.822 Contact with and (suspected) exposure to COVID-19; Z20.828 Contact with and (suspected) exposure to other viral communicable diseases
CPT/HCPCS: 0241U; 71046; 99283; 99284

== ENCOUNTER 2023-12-01 11:24 | Emergency (ER) | payer MEDICARE, SELFPAY ==
--- NOTE | ~2023-12-01 | XR_ITS ---
EXAMINATION: XR SHOULDER, RIGHT CLINICAL INFORMATION: Fall, pain COMPARISON: None available. TECHNIQUE: AP external rotation, Grashey and scapular Y views of the right shoulder. FINDINGS: There is a minimally displaced fracture of the greater tuberosity of the humeral head seen on the transscapular Y view. There is a tiny ossific or calcific density superior to the acromioclavicular joint of unknown chronicity. No dislocation. There is elevation of the humeral head with respect to the glenoid consistent with chronic rotator cuff tear. Small marginal ossified extends off the lesser tuberosity of the humeral head. There is mild narrowing of the glenohumeral joint. There is mild degenerative changes of the acromioclavicular joint. XR/XR shoulder RT min 2V IMPRESSION: 1. Minimally displaced fracture of the greater tuberosity of the humeral head. 2. Chronic rotator cuff tear. 3. Tiny ossific or calcific density superior to the acromioclavicular joint is of unknown chronicity.
--- NOTE | ~2023-12-01 | XR_ITS ---
EXAMINATION: XR HAND, RIGHT CLINICAL INFORMATION: Fall, pain COMPARISON: None available. TECHNIQUE: PA, lateral, and oblique views of the right hand. FINDINGS: The bones are intact. No fracture. Negative ulnar variance is noted There is marked narrowing of the first metacarpophalangeal joint. There is mild degenerative change of the DIP and PIP joints of the fingers. XR/XR hand RT min 3V IMPRESSION: No acute bony abnormality. Degenerative changes
--- NOTE | ~2023-12-01 | XR_ITS ---
EXAMINATION: XR FOREARM, RIGHT CLINICAL INFORMATION: Fall, pain COMPARISON: Same-day right hand and right shoulder TECHNIQUE: AP and lateral views of the right forearm were obtained. FINDINGS: There is a tiny ossific density adjacent to the base of the first metacarpal. There are faint densities adjacent to the trapezium. These are consistent with small chip fractures small calcific density adjacent to the lateral humeral epicondyle is consistent with tendinosis. There is no elbow joint effusion. XR/XR forearm RT 2V IMPRESSION: 1. Small chip fractures adjacent to the base of the first metacarpal and the trapezium. 2. Calcific density adjacent to the lateral humeral epicondyle is consistent with tendinosis.
[2023-12-01 11:28] VITALS: BP 175/92; PULSE 100; RESP 19; TEMP 36.6; O2SAT 97; BMI 31.9
--- NOTE | 2023-12-01 11:30 | ED.GENADULT ---
HPI - General Adult General Chief complaint: Extremity Injury, Upper Stated complaint: Fell - arm/hand injury Time Seen by Provider: 12/01/23 12:06 Source: patient, RN notes reviewed and old records reviewed Mode of arrival: ambulatory History of Present Illness HPI narrative: 68-year-old female with a past medical history of anemia, HTN, breast CA, presenting to the ED complaining of right shoulder/elbow and hand pain s/p mechanical slip and fall on black ice [employer]. Admits stepped [place] of her [place] and slipped and fell, catching herself on right side, denies head trauma or LOC. denies neck/back pain, incontinence/retention, abdominal pain, nausea/vomiting Related Data Previous Rx's Medication Instructions Recorded losartan 50 mg tablet 50 mg PO DAILY #90 tabs 07/12/23 triamcinolone acetonide 0.1 % See Rx Instructions topical DAILY 07/12/23 topical cream 30 days #15 grams doxycycline hyclate 100 mg tablet 100 mg PO BID 7 days #14 tabs 10/14/23 benzonatate 100 mg capsule 100 mg PO TID #20 caps 11/01/23 hydrocodone 5 mg-acetaminophen 325 1 tab PO Q8H PRN pain, severe 3 12/01/23 mg tablet days #9 tabs ibuprofen 800 mg tablet 800 mg PO Q8H PRN pain #14 tabs 12/01/23 Allergies Allergy/AdvReac Type Severity Reaction Status Date / Time lidocaine Allergy Intermediate hives Verified 12/01/23 11:27 penicillin V Allergy Intermediate rash Verified 12/01/23 11:27 erythromycin base Allergy Unknown Rash Verified 12/01/23 11:27 Review of Systems Review of Systems: Constitutional: No Fever, No Chills ENT/Mouth: No Ear Pain, No Nasal Congestion, No sore throat, No Rhinorrhea, No Swallowing Difficulty Cardiovascular: No Chest Pain, No SOB Respiratory: No Cough Gastrointestinal: No Nausea, No Vomiting, No Abdominal pain Genitourinary: No Dysuria, No Hematuria, No Urinary Incontinence/retention Musculoskeletal: + joint pain, No Myalgias, No Joint Swelling Skin: No Skin Lesions, No rash Neuro: No Weakness Yes all other systems are reviewed and are negative Constitutional: Constitutional: Reports as per HPI Neurologic: Denies Abnormal speech present [facility] Past Medical History Attestation statement: The following information was validated with the patient. Source: old records reviewed Onset Date is defined in the Problem List Problems that require an onset date and time if occurred within 24 hrs of arrival to the ED Aortic Dissection and Rupture; Neurologic impairment; Cardiopulmonary Arrest; Endotracheal Intubation; Insertion or Replacement of Mechanical Circulatory Assist Device Medical History Hx of breast cancer Hx of essential hypertension Surgical History No pertinent past surgical history Family History Family History Maternal Grandmother Breast cancer Sister Breast cancer Father Dementia Maternal Aunt Breast cancer Mother No problems noted. Paternal Grandmother Cancer of thyroid Brother No problems noted. Brother No problems noted. Brother No problems noted. Son No problems noted. Son No problems noted. Son No problems noted. Daughter No problems noted. Maternal Grandfather Mental health disorder Social History Social History Housing: Apartment Alcohol intake: never Patient Tobacco Use Status: Never used Tobacco e-Cigarette/Vaping Use: Never Used Second Hand Smoke Exposure: Yes Advance Directives: No service: No Current occupational status: employed Sexual orientation: Straight/Heterosexual Gender identity: Female Cognitive needs: No Hearing needs: No Vision needs: Yes Physical Exam ED Vital Signs: Vital Signs - 24 hr 12/01/23 11:28 Temperature 98 F Pulse Rate 100 Respiratory Rate 19 Blood Pressure 175/92 H Pulse Oximetry 97 Oxygen Delivery Method Room Air BMI result Body Mass Index 31.9 Const General: cooperative, healthy appearing and no acute distress Orientation/consciousness: patient oriented x3 Limitations: no limitations HENMT Head: Yes normal to inspection and Yes atraumatic Ears: hearing grossly normal bilaterally General nose exam: Normal external nose present Face and sinus: Yes normal facial exam Mouth: Normal oral and palatal mucosa present Eyes General: appearance normal, both eyes and all related structures EOM: EOMs intact bilaterally Neck Neck: Yes normal visual inspection, Yes no meningeal signs and No anterior neck swelling Chest Chest palpation & inspection: normal inspection of the chest Resp Effort & Inspection: normal respiratory effort and no respiratory distress Cardio Rate: regular rate Heart sounds: S1 normal heart sound present and S2 normal heart sound present Peripheral pulses: Peripheral pulses 2+ throughout GI Inspection: Yes normal to inspection Palpation (GI): Soft to palpation, nontender, no guarding and not rigid Back/Spine/Pelvis Other: No midline cervical/thoracic/lumbar spinous tenderness/step-off or deformity Skin Rashes: no rashes Wounds: no wounds Neuro General: patient oriented x3, gait normal, tone normal, moves all extremities, no meningeal signs, no focal motor deficits and CN's II-XI intact bilaterally Cranial nerves: Yes CN's II-XII intact bilaterally Cognition (Neuro): normal cognition Speech: No Abnormal speech present Gait exam (Neuro): Normal gait present Extrem Other: RUE: clavicle nontender, shoulder with diffuse tenderness. Limited ROM secondary to pain. Neurovascular intact distally. elbow with mild tenderness. Full extension slightly limited. Flexion and pronation/supination intact. Right wrist nontender. No snuffbox tenderness & hand with mild tenderness. Finger thumb opposition intact. General: Yes normal to inspection Course Course Course Narrative: RME- 68-year-old female presents for evaluation after a fall. Patient reports that she slipped on ice and fell onto an outstretched right hand. She complains of pain to her right hand, wrist, forearm and shoulder. X-rays ordered. She denies hitting her head or losing consciousness, she is not anticoagulated. Plan for x-rays 1315--XR hand RT min 3V IMPRESSION: No acute bony abnormality. Degenerative changes ADDENDUMThere is a tiny ossific density adjacent to the base of the first metacarpal. There are faint densities adjacent to the trapezium. These are consistent with small chip fractures These are best appreciated on the views of the forearm. XR forearm RT 2V IMPRESSION: 1. Small chip fractures adjacent to the base of the first metacarpal and the trapezium. 2. Calcific density adjacent to the lateral humeral epicondyle is consistent with tendinosis. > discussed with orthopedic buddy DUARTE thumb spica sufficient XR shoulder RT min 2V IMPRESSION: 1. Minimally displaced fracture of the greater tuberosity of the humeral head. 2. Chronic rotator cuff tear. 3. Tiny ossific or calcific density superior to the acromioclavicular joint is of unknown chronicity. > will be placed in sling and require orthopedic follow-up for both fractures. Results discussed with patient including worrisome signs and symptoms and strict return precautions, and when to return to the emergency department. They verbalized understanding and feel safe for discharge at this time. Medications Administered Discontinued Medications Generic Name Dose Route Start Last Admin Trade Name Tanisha PRN Reason Stop Dose Admin Oxycodone HCl 5 mg 12/01/23 12:11 12/01/23 12:17 Oxycodone Hcl Immed Release 5 Mg Tablet PO 12/01/23 12:12 5 mg ONCE ONE Administration Procedures Orthopedic Splinting/Casting Injury #1: Side: right Upper Extremity Injury Location: upper arm Upper Extremity Immobilizer: sling/shoulder immobilizer Injury #2: Side: right Upper Extremity Injury Location: hand Upper Extremity Immobilizer: thumb spica (velcro) Medical Decision Making Medical Decision Making MDM Narrative: 68-year-old female with a past medical history of anemia, HTN, breast CA, presenting to the ED complaining of right shoulder/elbow and hand pain s/p mechanical slip and fall on black ice [employer]. On exam mildly hypertensive, NAD, nontoxic appearing, physical exam as noted above. Concern for fracture versus sprain. Low suspicion for ICH Plan: X-rays, pain control Please refer to course for remaining clinical decision making, interpretation of labs/imaging results, and discussions with consultants and/or family members. Differential Diagnosis Differential Diagnoses: The differential diagnosis associated with the presentation includes As above Lab Data [facility] Lab Attestation statement: I reviewed the patient's lab results. Independent Interpretation I performed an independent interpretation of an: Plain X-Ray Radiology Impression Discussion of test interpretation with radiology: I have reviewed the radiologist's reading. External Record Review External record reviewed: Inpatient record, Office record, Outpatient record, Prior outpatient labs, Prior outpatient radiology, Primary care record and Outside ED record Tests considered The following testing was considered but not selected: As above Prescription Management I considered prescription management with: Pain Medication Chronic Conditions Patient?s care impacted by: Hypertension Discharge Plan Discharge Clinical Impression: Closed fracture of greater tuberosity of right humerus, Fracture of metacarpal base, first, right hand, closed Patient Disposition: Home, Self-Care Instructions: Hand Fracture (ED) Additional Instructions: You have a fracture of your humerus and a chip fracture of the base of your 1st metacarpal (thumb). Please keep sling and splint on, dry and clean. You may take off to shower however please put immediately back on YOU NEED TO FOLLOW-UP WITH ORTHOPEDICS, CALL TO MAKE AN APPOINTMENT Ice and elevate. Ben Bolt as an opiate pain medication, take only when pain is severe for the next 3 days. In addition take Motrin for pain and swelling If pain becomes unbearable, area becomes numb, discolored, or increasingly swollen return to the ED Prescriptions: New ibuprofen 800 mg tablet 800 mg PO Q8H PRN (Reason: pain) Qty: 14 0RF hydrocodone-acetaminophen 5-325 mg tablet 1 tab PO Q8H PRN (Reason: pain, severe) 3 Days Qty: 9 0RF Rx Instructions: Partial Fill upon patient request. No Action doxycycline hyclate 100 mg tablet 100 mg PO BID 7 Days Qty: 14 0RF triamcinolone acetonide 0.1 % cream See Rx Instructions topical DAILY 30 Days Qty: 15 2RF Rx Instructions: small amount topical daily; losartan 50 mg tablet 50 mg PO DAILY Qty: 90 1RF benzonatate 100 mg capsule 100 mg PO TID Qty: 20 0RF Referrals: [facility] [Provider Group] - 1 week
[2023-12-01] MEDS: oxyCODONE HCl Immed Release 5 MG TABLET PO (12:17)
== END 2023-12-01 14:36 | disposition home or self-care (01) ==
PROVIDERS: Emergency Provider Emergency Medicine; PCP Internal Medicine
DX: S42.251A Displaced fracture of greater tuberosity of right humerus, initial encounter for closed fracture (principal); S62.501A Fracture of unspecified phalanx of right thumb, initial encounter for closed fracture; M79.601 Pain in right arm; W00.0XXA Fall on same level due to ice and snow, initial encounter; Y93.9 Activity, unspecified; Y92.481 Parking lot as the place of occurrence of the external cause; Y99.8 Other external cause status
CPT/HCPCS: 29105; 29130; 73030; 73090; 73130; 99283

== ENCOUNTER 2023-12-09 12:15 | Outpatient (AMB) | payer MEDICARE, SELFPAY ==
--- NOTE | 2023-12-09 12:18 | MHC.OFFVIS ---
Intake Vital Signs 12/09/23 12:24 Height 5 ft 3 in Weight 180 lb BMI 31.9 Intake Visit Reasons: fc-FX of metacarpal base first right hand, Intake Note: Cindy bazan 68 year old 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 female presents today for an ER follow up of right shoulder/hand. Patient reports having a mechanical slip and fall on black ice at [employer] [place] while stepping out of her car injuring her shoulder, elbow, and hand. She presented to [facility] ED same day where xrays were taken and placed in a velco wrist brace. Currently states intermittent pain that will fluctuate in intensity. Tingling sensation in her hands. Finds relief with ibuprofen and vicoden at night to help her sleep. Allergies lidocaine Allergy (Intermediate, Verified 12/09/23 12:21) hives penicillin V Allergy (Intermediate, Verified 12/09/23 12:21) rash erythromycin base Allergy (Unknown, Verified 12/09/23 12:21) Rash HPI fc-FX of metacarpal base first right hand, HPI Details 68-year-old 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 female who presents to the office today for an ER follow-up of right hand and shoulder injury s/p mechanical slip and fall on black ice at [employer] [place] while stepping out of her car. She was seen at ED the same day where x-rays were performed and she was placed in a Velcro wrist brace. She currently states she has intermittent pain which fluctuates in intensity. She also c/o a tingling sensation in her hands. She finds relief with ibuprofen and Vicodin at night to help with her sleep. [facility] Medical History (Updated 12/09/23 @ 13:31 by Micky Hanson PA-C) Hx of breast cancer Hx of essential hypertension Surgical History (Updated 12/09/23 @ 12:22 by Rosenda Nguyen Lazara) Hx of hysterectomy No pertinent past surgical history Family History Maternal Grandmother Breast cancer Sister Breast cancer Father Dementia Maternal Aunt Breast cancer Mother No problems noted. Paternal Grandmother Cancer of thyroid Brother No problems noted. Brother No problems noted. Brother No problems noted. Son No problems noted. Son No problems noted. Son No problems noted. Daughter No problems noted. 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 Mild tenderness over the proximal humerus which extends down the arm. Anterior deltoid sensation intact. Elbow and wrist ROM intact. NVI. Right thumb: Pain at the base of the thumb along the CMC joint. Mild discomfort with abduction of the thumb, they are able to make a full fist and fully extend. NVI. Office Procedures Fracture Care Fracture Billing Code: Fracture Billing Code Results Reviewed Results Reviewed: xrays of the right hand and right shoulder obtained in the ED on 12/01/23: IMPRESSION: 1. Minimally displaced fracture of the greater tuberosity of the humeral head. 2. Small chip fractures adjacent to the base of the first metacarpal and the trapezium. Assessment & Plan Assessment & Plan (1) Fracture of greater tuberosity of right humerus: Code(s): S42.251A - Displaced fracture of greater tuberosity of right humerus, initial encounter for closed fracture Qualifiers: Encounter type: initial encounter Fracture type: closed Fracture alignment: nondisplaced Qualified Code(s): S42.254A - Nondisplaced fracture of greater tuberosity of right humerus, initial encounter for closed fracture (2) Sprain of right thumb: Code(s): S63.601A - Unspecified sprain of right thumb, initial encounter Qualifiers: Encounter type: initial encounter Sprain of finger site: metacarpophalangeal joint Qualified Code(s): S63.641A - Sprain of metacarpophalangeal joint of right thumb, initial encounter Plan She was placed in a Velcro thumb spica splint for her right wrist which she will wear at all times. She can remove the splint for hygiene. I did instruct her that she can discontinue the sling for her right shoulder and perform right shoulder movement below shoulder height. She will avoid any type of heavy lifting as well. I did send a prescription of shower chair and refilled her Vicodin which she will use with night time only. I would like to see her back in 4-6 weeks with x-rays of right shoulder and right hand, sooner if needed. Medications: New [SHOWER CHAIR] As directed 1 ea 0RF S42.251A - Displaced fracture of greater tuberosity of right humerus, initial encounter for closed fracture, S63.601A - Unspecified sprain of right thumb, initial encounter Changed From hydrocodone-acetaminophen 5-325 mg Partial Fill upon patient request. 1 tab PO Q8H 3 days PRN 9 tabs 0RF pain, severe To hydrocodone-acetaminophen 5-325 mg Partial Fill upon patient request. 1 tab PO BEDTIME 7 days PRN 7 tabs 0RF pain, severe Patient Instructions: Scribed for Micky Hanson PA-C, by Jake Lopez medical numerical control operator, on 12/09/2023 at 12:15 PM EST. I, Micky Hanson PA-C, have personally reviewed and agree with the information entered by the scribe. Coding Level of Care Code New Pt Level 3 (41645) Diagnoses Closed nondisplaced fracture of greater tuberosity of right humerus, initial encounter S42.254A Encounter type: initial encounter Fracture type: closed Fracture alignment: nondisplaced Sprain of metacarpophalangeal (MCP) joint of right thumb, initial encounter S63.641A Encounter type: initial encounter Sprain of finger site: metacarpophalangeal joint CPT Codes Fracture Care - Fracture Billing Code: Fracture Billing Code ([id number])
[2023-12-09 12:24] VITALS: BMI 31.9
== END 2023-12-09 12:45 | disposition home or self-care (01) ==
PROVIDERS: PCP Internal Medicine; Visit Provider Physician Assistant
DX: S42.254A Nondisplaced fracture of greater tuberosity of right humerus, initial encounter for closed fracture (principal); S63.641A Sprain of metacarpophalangeal joint of right thumb, initial encounter
CPT/HCPCS: 99204

== ENCOUNTER → 2023-12-09 12:15 | Outpatient (BNVA) | payer MEDICARE, SELFPAY | PROVIDERS: PCP Internal Medicine; Visit Provider Physician Assistant | DX: S42.254A Nondisplaced fracture of greater tuberosity of right humerus, initial encounter for closed fracture (principal); S63.641A Sprain of metacarpophalangeal joint of right thumb, initial encounter | CPT/HCPCS: 99202 ==

== ENCOUNTER 2024-01-10 09:48 | Outpatient (AMB) | payer MEDICARE, SELFPAY ==
[2024-01-10 09:51] VITALS: BP 130/60; PULSE 69; O2SAT 95; BMI 32.6
--- NOTE | 2024-01-10 09:51 | A.OFFPC_ITS ---
Vital Signs 01/10/24 09:51 Height 5 ft 3 in Weight 184 lb 4 oz BMI 32.6 BP 130/60 Blood Pressure Location Lt brachial Position Sitting Pulse 69 Pulse Source Pulse Oximeter Pulse Oximetry (%) 95 Oxygen Delivery Method Room Air Intake Visit Reasons: 6 Month follow up Allergies lidocaine Allergy (Intermediate, Verified 01/10/24 09:52) hives penicillin V Allergy (Intermediate, Verified 01/10/24 09:52) rash erythromycin base Allergy (Unknown, Verified 01/10/24 09:52) Rash Medication List - Last Reviewed 01/10/24 by Tiffany Orellana MA ibuprofen 800 mg PO Q8H PRN losartan 50 mg PO DAILY triamcinolone acetonide 0.1% small amount topical daily; 30 days Tobacco use date assessed: 01/10/24 Fall risk assessment: 1 Fall in past year Last assessed Fall Risk: 01/10/24 Dental Screening Dental Screen Date: 01/10/24 Did you have a dental visit in the last 12 months?: Yes Did you have a dental problem in the last 6 months where you did not have access to dental care?: No Was dental information given to patient?: Patient has dentist HPI 6 Month follow up HPI Details Patient is a 68-year-old female came in today for six-month follow-up a ppointment for hypertension Patient is in her usual state of health Labs still not done order was placed in June to be done in 5 months before this visit Patient comes in every 6 months for follow-up appointment Patient is on losartan 50 mg tolerating medication no side effects. Blood pressure is stable, she is due for labs. History of bladder sling surgery and is doing very well now. BMI is elevated at 32.6 patient is obese need to lose weight History of iron deficiency anemia need CBC Eczema stable Follow-up 6 months PFSH Medical History Hx of breast cancer Hx of essential hypertension Surgical History Hx of hysterectomy No pertinent past surgical history Family History Maternal Grandmother Breast cancer Sister Breast cancer Father Dementia Maternal Aunt Breast cancer Mother No problems noted. Paternal Grandmother Cancer of thyroid Brother No problems noted. Brother No problems noted. Brother No problems noted. Son No problems noted. Son No problems noted. Son No problems noted. Daughter No problems noted. 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 How often do you have a drink containing alcohol?: Never 3. How often do you have six or more drinks on one occasion?: Never Total Score: 0 Score Reviewed/Action Taken: Yes Review of Systems Const Denies chills and Denies fever(s) ENT Denies epistaxis and Denies nasal discharge Card Denies chest pain Resp Denies chest congestion, Denies cough and Denies hemoptysis GI Denies diarrhea and Denies nausea Skin/Breast Denies rash Neuro Reports no additional complaints Psych Reports no additional complaints Endo Reports no additional complaints Physical exam (Primary Care) Vital Signs: Last Vital Signs BP 130/60 01/10/24 09:51 BMI result Body Mass Index 32.6 Tobacco/Smoking Status: Tobacco use Status Tobacco use date assessed 07/12/23 11/01/23 08:05 Patient Tobacco Use Status Never used Tobacco 12/09/23 12:23 e-Cigarette/Vaping Use Never Used 12/09/23 12:23 Thrive Assessment: Date of Thrive Assessment Date Thrive assessed 04/20/22 11/01/23 08:05 Const General: cooperative, comfortable and no acute distress Orientation/consciousness: patient oriented x3 HENMT Head: Yes normocephalic Eyes General: appearance normal, both eyes and all related structures Neck Neck: Yes supple Resp Effort & Inspection: normal respiratory effort, no cough and no stridor Cardio Rhythm: regular rhythm Heart sounds: S1 normal heart sound present and S2 normal heart sound present Skin General skin exam: turgor normal Neuro General: patient oriented x3, tone normal and moves all extremities Extrem Other: Right arm in sling Right lower extremity: no edema Left lower extremity: no edema Assessment and Plan Assessment & Plan (1) Hypertension, essential: Code(s): I10 - Essential (primary) hypertension (2) Eczema: Code(s): L30.9 - Dermatitis, unspecified Qualifiers: Eczema type: intrinsic Qualified Code(s): L20.84 - Intrinsic (allergic) eczema (3) Anemia: Code(s): D64.9 - Anemia, unspecified Qualifiers: Anemia type: iron deficiency Iron deficiency anemia type: chronic blood loss Qualified Code(s): D50.0 - Iron deficiency anemia secondary to blood loss (chronic) (4) Obesity due to excess calories: Code(s): E66.09 - Other obesity due to excess calories Qualifiers: Obesity classification: adult class 1 (BMI 30 - 34.9) Serious obesity comorbidity presence: with serious comorbidity Body mass index: BMI 32.0-32.9 Qualified Code(s): E66.09 - Other obesity due to excess calories; Z68.32 - Body mass index [BMI] 32.0-32.9, adult (5) Fracture of greater tuberosity of right humerus: Code(s): S42.251A - Displaced fracture of greater tuberosity of right humerus, initial encounter for closed fracture Qualifiers: Encounter type: initial encounter Fracture type: closed Fracture alignment: nondisplaced Qualified Code(s): S42.254A - Nondisplaced fracture of greater tuberosity of right humerus, initial encounter for closed fracture Plan Patient is a 68-year-old female came in today for six-month follow-up appointment for hypertension Patient fell on ice December 01 and had fracture of her right humerus Currently she is under care by Orthopedic at [facility] Her arm is in sling Labs still not done order was placed in June to be done in 5 months before this visit Patient comes in every 6 months for follow-up appointment Patient is on losartan 50 mg tolerating medication no side effects. Blood pressure is stable, she is due for labs. History of bladder sling surgery and is doing very well now. BMI is elevated at 32.6 patient is obese need to lose weight History of iron deficiency anemia need CBC Eczema stable Patient has appointment for physical exam in May Coding Level of Care Code Est Pt Level 4 (74795) Diagnoses Hypertension, essential I10 Intrinsic eczema L20.84 Eczema type: intrinsic Iron deficiency anemia due to chronic blood loss D50.0 Anemia type: iron deficiency Iron deficiency anemia type: chronic blood loss Class 1 obesity due to excess calories with serious comorbidity and body mass index (BMI) of 32.0 to 32.9 in adult E66.09; Z68.32 Obesity classification: adult class 1 (BMI 30 - 34.9) Serious obesity comorbidity presence: with serious comorbidity Body mass index: BMI 32.0-32.9 Closed nondisplaced fracture of greater tuberosity of right humerus, initial encounter S42.254A Encounter type: initial encounter Fracture type: closed Fracture alignment: nondisplaced
== END 2024-01-10 10:36 | disposition home or self-care (01) ==
PROVIDERS: PCP Internal Medicine; Visit Provider Internal Medicine
DX: I10 Essential (primary) hypertension (principal); L20.84 Intrinsic (allergic) eczema; E66.09 Other obesity due to excess calories; Z68.32 Body mass index [BMI] 32.0-32.9, adult; D50.0 Iron deficiency anemia secondary to blood loss (chronic); S42.254A Nondisplaced fracture of greater tuberosity of right humerus, initial encounter for closed fracture
CPT/HCPCS: 99214

== ENCOUNTER 2024-01-16 07:26 | Outpatient (REF) | payer MEDICARE, SELFPAY ==
[2024-01-16 11:17] LABS: MANUAL DIFF FLAG NO
[2024-01-16 11:25] LABS: Basophils Percent Auto 0.7 % (0-2); Eosinophils Absolute Auto 0.2 X10*3/uL (0.0-0.4); Eosinophils Percent Auto 3.6 % (0-4); Hematocrit 43.7 % (37.0-47.0); Hemoglobin 14.1 g/dl (12.0-16.0); Imm Gran Abs Auto 0.02 X10*3/uL (0.00-0.03); Imm Gran Pct Auto 0.3 % (0.0-0.4); Lymphocytes Absolute Auto 1.7 X10*3/uL (1.2-4.9); Lymphocytes Percent Auto 29.3 % (20-40); Mean Corpuscular HGB Conc 32.3 g/dl (31.0-35.0); Mean Corpuscular Hemoglobin 31.3 pg (27.0-33.0); Mean Corpuscular Volume 96.9 fL (80.0-98.0); Mean Platelet Volume 11.2 fL (9.4-12.3); Monocytes Absolute Auto 0.6 X10*3/uL (0.1-1.2); Monocytes Percent Auto 9.8 % (2-11); Neutrophils Absolute Auto 3.3 x10*3/uL (2.0-8.3); Neutrophils Percent Auto 56.3 % (45-73); Platelet Count 284 X10*3/uL (160-400); Red Blood Count 4.51 X10*6/uL (4.20-5.50); Red Cell Distribution Width 14.2 % (11.0-16.0); White Blood Count 5.8 X10*3/uL (4.8-10.8)
[2024-01-16 12:26] LABS: Alanine Aminotransferase 20 U/L (0-31); Albumin Level 4.3 g/dL (3.5-5.0); Alkaline Phosphatase 96 U/L (39-117); Anion Gap 11 (12-20); Aspartate Amino Transferase 18 U/L (5-31); Bilirubin Total 0.4 mg/dL (0.0-1.0); Blood Urea Nitrogen 11 mg/dL (9-16); Calcium 9.4 mg/dL (8.4-10.2); Carbon Dioxide 25 mmol/L (22-29); Chloride 106 mmol/L (96-108); Cholesterol 196 mg/dL (<200); Estimated Glomerular Filt Rate > 60; Glucose Fasting 88 mg/dL (60-99); HDL Cholesterol 90 mg/dL (>40); LDL Cholesterol Calculated 81 mg/dL (<100); Potassium 4.4 mmol/L (3.3-5.1); Sodium 138 mmol/L (135-145); Total Protein 7.3 g/dL (6.5-8.0); Triglycerides 127 mg/dL (<150)
== END 2024-01-16 07:27 | disposition home or self-care (01) ==
LOC: HO.HMGCLDS 07:26
PROVIDERS: PCP Internal Medicine; Visit Provider Internal Medicine
DX: E66.09 Other obesity due to excess calories (principal); D64.9 Anemia, unspecified; L30.9 Dermatitis, unspecified; I10 Essential (primary) hypertension
CPT/HCPCS: 36415; 80053; 80061; 85025

== ENCOUNTER 2024-01-16 11:12 | Outpatient (AMB) | payer MEDICARE, SELFPAY ==
--- NOTE | 2024-01-16 11:28 | MHC.OFFVIS ---
Intake Vital Signs 01/16/24 11:35 Height 5 ft 3 in Weight 184 lb BMI 32.6 Intake Visit Reasons: ov- Right shoulder/ Right thumb Intake Note: Cindy a 68 year old 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 female presents today for a follow up of right shoulder and thumb pain s/p fall. Xrays updated while in office. Patient reports that she continues to have intermittent shooting pain that can get to a pain level of 10 out 10. Denies numbness or tingling. Allergies lidocaine Allergy (Intermediate, Verified 01/16/24 11:34) hives penicillin V Allergy (Intermediate, Verified 01/16/24 11:34) rash erythromycin base Allergy (Unknown, Verified 01/16/24 11:34) Rash HPI ov- Right shoulder/ Right thumb HPI Details 68-year-old female who returns to the office today for a follow-up of right shoulder and right thumb s/p fall. She continues to have intermittent shooting pain and rates the pain as 10 on the scale of 0-10. She denies any numbness or tingling. She also c/o intermittent swelling in her thumb. She has no other concerns today. [facility] Medical History Hx of breast cancer Hx of essential hypertension Surgical History Hx of hysterectomy No pertinent past surgical history Family History Maternal Grandmother Breast cancer Sister Breast cancer Father Dementia Maternal Aunt Breast cancer Mother No problems noted. Paternal Grandmother Cancer of thyroid Brother No problems noted. Brother No problems noted. Brother No problems noted. Son No problems noted. Son No problems noted. Son No problems noted. Daughter No problems noted. 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 Mild tenderness over the proximal humerus which extends down the arm. Anterior deltoid sensation intact. Elbow and wrist ROM intact. NVI. Right thumb without pain on exam. She is able to make a full fist and extend all digits. NVI. Results Reviewed Results Reviewed: Xrays were obtained in the office today and personally reviewed by me of the right shoulder show fracture of the greater tuberosity of the humeral head with interval healing Assessment & Plan Assessment & Plan (1) Fracture of greater tuberosity of right humerus: Code(s): S42.251A - Displaced fracture of greater tuberosity of right humerus, initial encounter for closed fracture Qualifiers: Encounter type: subsequent encounter Fracture alignment: nondisplaced Fracture type: closed Fracture healing: with routine healing Qualified Code(s): S42.254D - Nondisplaced fracture of greater tuberosity of right humerus, subsequent encounter for fracture with routine healing Plan She will begin a course of physical therapy to work on ROM and periscapular stabilization. She will avoid RTC strengthening at this time and see me back in 6-8 weeks with new x-rays, sooner if needed. Orders: Orders XR hand RT min 3V Today M79.641 - Pain in right hand XR shoulder RT min 2V Today M25.511 - Pain in right shoulder PT Evaluation and Treatment Today S42.251A - Displaced fracture of greater tuberosity of right humerus, initial encounter for closed fracture Patient Instructions: Scribed for Micky Hanson PA-C, by joana Aguirre scribe, on 01/16/2024 at 11:00 AM EST. Micky Paez PA-C, have personally reviewed and agree with the information entered by the scribe. Coding Level of Care Code Global (55242) Diagnoses Closed nondisplaced fracture of greater tuberosity of right humerus with routine healing, subsequent encounter S42.254D Encounter type: subsequent encounter Fracture alignment: nondisplaced Fracture type: closed Fracture healing: with routine healing
[2024-01-16 11:35] VITALS: BMI 32.6
== END 2024-01-16 11:43 | disposition home or self-care (01) ==
PROVIDERS: PCP Internal Medicine; Visit Provider Physician Assistant
DX: S42.254D Nondisplaced fracture of greater tuberosity of right humerus, subsequent encounter for fracture with routine healing (principal); S63.641A Sprain of metacarpophalangeal joint of right thumb, initial encounter
CPT/HCPCS: 99213

== ENCOUNTER 2024-01-16 15:54 | Outpatient (REF) | payer MEDICARE, SELFPAY ==
--- NOTE | ~2024-01-16 | XR_ITS ---
EXAMINATION: XR SHOULDER, RIGHT XR HAND, RIGHT CLINICAL INFORMATION: Pain in right hand and shoulder. COMPARISON: Right shoulder 12/01/2023. Right hand and forearm 12/01/2003. TECHNIQUE: 4 views of the right hand. 2 views of the right shoulder. FINDINGS: RIGHT HAND: The bones are diffusely demineralized. Degenerative changes in scattered IP joints of the hand. Severe degenerative changes at the 1st carpometacarpal joint. The tiny ossific density previously identified adjacent to the base of the 1st metacarpal on the views of the right forearm of 12/01/2023 is less well visualized, possibly due to overlapping structures and also was not appreciated on dedicated right hand radiographs of 12/01/2023. RIGHT SHOULDER: Redemonstration of cortical step off felt to represent minimally displaced fracture of the greater tuberosity of the humeral head seen on the transscapular Y view on radiographs of 12/01/2023. Bones are diffusely demineralized. Degenerative changes on limited views of the upper thoracic spine. Tiny calcification superior to the acromioclavicular joint of unknown chronicity redemonstrated. Redemonstration of elevation of the humeral head relative to the glenoid characteristic of chronic rotator cuff tear. Degenerative changes in the acromioclavicular and glenohumeral joints. XR/XR shoulder RT min 2V IMPRESSION: 1. Redemonstration of previously identified cortical step off felt to be characteristic of minimally displaced fracture of the greater tuberosity of the humeral head seen on the transscapular Y view. 2. Redemonstration of elevation of the humeral head relative to the glenoid characteristic of chronic rotator cuff tear. 3. Advanced degenerative changes in the 1st carpometacarpal joint. 4. The tiny ossific density previously identified adjacent to the base of the 1st metacarpal on the views of the right forearm of 12/01/2023 is less well visualized, possibly due to overlapping structures and also was not appreciated on dedicated right hand radiographs of 12/01/2023. Additional imaging with CT scan could be considered for further evaluation based on the clinical assessment.
--- NOTE | ~2024-01-16 | XR_ITS ---
EXAMINATION: XR SHOULDER, RIGHT XR HAND, RIGHT CLINICAL INFORMATION: Pain in right hand and shoulder. COMPARISON: Right shoulder 12/01/2023. Right hand and forearm 12/01/2003. TECHNIQUE: 4 views of the right hand. 2 views of the right shoulder. FINDINGS: RIGHT HAND: The bones are diffusely demineralized. Degenerative changes in scattered IP joints of the hand. Severe degenerative changes at the 1st carpometacarpal joint. The tiny ossific density previously identified adjacent to the base of the 1st metacarpal on the views of the right forearm of 12/01/2023 is less well visualized, possibly due to overlapping structures and also was not appreciated on dedicated right hand radiographs of 12/01/2023. RIGHT SHOULDER: Redemonstration of cortical step off felt to represent minimally displaced fracture of the greater tuberosity of the humeral head seen on the transscapular Y view on radiographs of 12/01/2023. Bones are diffusely demineralized. Degenerative changes on limited views of the upper thoracic spine. Tiny calcification superior to the acromioclavicular joint of unknown chronicity redemonstrated. Redemonstration of elevation of the humeral head relative to the glenoid characteristic of chronic rotator cuff tear. Degenerative changes in the acromioclavicular and glenohumeral joints. XR/XR hand RT min 3V IMPRESSION: 1. Redemonstration of previously identified cortical step off felt to be characteristic of minimally displaced fracture of the greater tuberosity of the humeral head seen on the transscapular Y view. 2. Redemonstration of elevation of the humeral head relative to the glenoid characteristic of chronic rotator cuff tear. 3. Advanced degenerative changes in the 1st carpometacarpal joint. 4. The tiny ossific density previously identified adjacent to the base of the 1st metacarpal on the views of the right forearm of 12/01/2023 is less well visualized, possibly due to overlapping structures and also was not appreciated on dedicated right hand radiographs of 12/01/2023. Additional imaging with CT scan could be considered for further evaluation based on the clinical assessment.
== END 2024-01-16 15:55 | disposition home or self-care (01) ==
LOC: HO.HOSX 15:54
PROVIDERS: Visit Provider Physician Assistant
DX: S42.254D Nondisplaced fracture of greater tuberosity of right humerus, subsequent encounter for fracture with routine healing (principal); M79.641 Pain in right hand; M25.511 Pain in right shoulder; W19.XXXD Unspecified fall, subsequent encounter
CPT/HCPCS: 73030; 73130; 99212

== ENCOUNTER 2024-03-12 08:34 | Outpatient (REF) | payer MEDICARE, SELFPAY ==
--- NOTE | ~2024-03-12 | XR_ITS ---
EXAMINATION: XR SHOULDER, RIGHT CLINICAL INFORMATION: Pain. COMPARISON: Prior radiographs, most recently 02/05/2024. TECHNIQUE: AP internal and external rotation views of the right shoulder are submitted. FINDINGS: There is bony demineralization. The glenohumeral joint is intact and shows very mild peripheral osteophyte formation. The acromioclavicular and coracoclavicular intervals are normal. There is mild osteoarthritic change of the acromioclavicular joint. There is narrowing of the rotator cuff interval, and there is mild cortical irregularity of the greater tuberosity of the proximal right humerus. No fracture or dislocation is seen. There is no soft tissue calcification or foreign body. No right pneumothorax is seen. XR/XR shoulder RT min 2V IMPRESSION: 1. There is mild osteoarthritic change of the right glenohumeral and acromioclavicular joints. 2. Findings suggest right rotator cuff impingement, without elvie calcific tendinitis noted.
== END 2024-03-12 08:35 | disposition home or self-care (01) ==
LOC: HO.HOSX 08:34
PROVIDERS: Visit Provider Physician Assistant
DX: S42.254D Nondisplaced fracture of greater tuberosity of right humerus, subsequent encounter for fracture with routine healing (principal)
CPT/HCPCS: 73030; 99212

== ENCOUNTER 2024-03-12 08:59 | Outpatient (AMB) | payer MEDICARE, SELFPAY ==
--- NOTE | 2024-03-12 09:07 | MHC.OFFVIS ---
Vital Signs 03/12/24 09:17 Height 5 ft 3 in Weight 184 lb BMI 32.6 Intake Visit Reasons: ov- Right shoulder tuberosity fx Intake Note: Cindy a 68 year old 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 female presents today for a follow up of right shoulder and thumb pain s/p fall. Patient reports still having right shoulder pain, on and off, feels worse after PT. Reports recent soreness on right thumb, patient believes this is related to arthritis. [facility] Health Services Manager Required: No Accompanied by: Self / Same As Patient Allergies lidocaine Allergy (Intermediate, Verified 03/12/24 09:08) hives penicillin V Allergy (Intermediate, Verified 03/12/24 09:08) rash erythromycin base Allergy (Unknown, Verified 03/12/24 09:08) Rash HPI HPI ov- Right shoulder tuberosity fx: Details: 68-year-old 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 female who returns to the office today for a follow-up of right shoulder fracture and right thumb pain after a fall. She continues to have intermittent pain in her shoulder which is aggravated with physical therapy. She is working on physical therapy with benefits. She also c/o soreness on her right thumb which she believes is related to arthritis. [facility] Medical History Hx of breast cancer Hx of essential hypertension Surgical History Hx of hysterectomy No pertinent past surgical history Family History Maternal Grandmother Breast cancer Sister Breast cancer Father Dementia Maternal Aunt Breast cancer Mother No problems noted. Paternal Grandmother Cancer of thyroid Brother No problems noted. Brother No problems noted. Brother No problems noted. Son No problems noted. Son No problems noted. Son No problems noted. Daughter No problems noted. 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 She has forward flexion to 90, abduction to 90 and external rotation to 45 degrees. I can passively externally rotate her to 90 degrees. Weakness with RTC strength testing with empty can and belly press. NVI. Results Reviewed Results Reviewed: Xrays were obtained in the office today and personally reviewed by me of the right shoulder show fracture of the greater tuberosity of the humeral head with interval healing Assessment & Plan Assessment & Plan (1) Fracture of greater tuberosity of right humerus: Code(s): S42.251A - Displaced fracture of greater tuberosity of right humerus, initial encounter for closed fracture Category: Medical Qualifiers: Encounter type: subsequent encounter Fracture alignment: nondisplaced Fracture healing: with routine healing Fracture type: closed Qualified Code(s): S42.254D - Nondisplaced fracture of greater tuberosity of right humerus, subsequent encounter for fracture with routine healing Plan She will begin RTC strength testing in physical therapy. I would expect to have improvement in her RTC strength and I would like to see her back in 6-8 weeks for reevaluation however if she continues to display RTC weakness or any other concerns she will contact the office, otherwise follow-up as needed. Orders: Orders XR shoulder RT min 2V Today M25.511 - Pain in right shoulder PT Evaluation and Treatment Today S42.254D - Nondisplaced fracture of greater tuberosity of right humerus, subsequent encounter for fracture with routine healing Patient Instructions: Scribed for Micky Hanson PA-C, by Jake Lopez medical staff assistant, on 03/12/2024 at 9:00 AM EST. IMicky PA-C, have personally reviewed and agree with the information entered by the scribe. Coding Level of Care Code Global (70726) Diagnoses Closed nondisplaced fracture of greater tuberosity of right humerus with routine healing, subsequent encounter S42.254D Encounter type: subsequent encounter Fracture alignment: nondisplaced Fracture healing: with routine healing Fracture type: closed
[2024-03-12 09:17] VITALS: BMI 32.6
== END 2024-03-12 09:29 | disposition home or self-care (01) ==
PROVIDERS: PCP Internal Medicine; Visit Provider Physician Assistant
DX: S42.254D Nondisplaced fracture of greater tuberosity of right humerus, subsequent encounter for fracture with routine healing (principal)
CPT/HCPCS: 99213

== ENCOUNTER 2024-04-23 07:45 | Outpatient (REF) | payer MEDICARE, SELFPAY | END 2024-04-23 07:46 | disposition home or self-care (01) | LOC: HO.MAMMO 07:45 | PROVIDERS: PCP Internal Medicine; Visit Provider Internal Medicine | DX: Z12.31 Encounter for screening mammogram for malignant neoplasm of breast (principal) | CPT/HCPCS: 77063; 77067 ==

== ENCOUNTER → 2024-04-23 07:45 | Outpatient (BNV) | payer MEDICARE, SELFPAY | PROVIDERS: PCP Internal Medicine; Visit Provider Radiology Diagnostic Radiology | DX: Z12.31 Encounter for screening mammogram for malignant neoplasm of breast (principal) | CPT/HCPCS: 77063; 77067 ==

== ENCOUNTER 2024-04-23 08:53 | Outpatient (AMB) | payer MEDICARE, SELFPAY ==
--- NOTE | 2024-04-23 09:14 | MHC.OFFVIS ---
Intake Visit Reasons: OV-greater tuberosity fx, right Intake Note: Cindy a 68 year old female who presents today for a follow up of right greater tuberosity fx, DOI 12/01/23. Patient reports she is doing well, she continues attending PT. States having improvement in her ROM since her last visit. Allergies lidocaine Allergy (Intermediate, Verified 04/23/24 09:21) hives penicillin V Allergy (Intermediate, Verified 04/23/24 09:21) rash erythromycin base Allergy (Unknown, Verified 04/23/24 09:21) Rash Medication List - Last Reconciled 04/23/24 by Micky Hanson PA-C ibuprofen 800 mg PO Q8H PRN losartan 50 mg PO DAILY triamcinolone acetonide 0.1% small amount topical daily; 30 days HPI HPI OV-greater tuberosity fx, right: Details: 68-year-old female who returns to the office today for a follow-up of right shoulder fracture, 12/01/23. She states she has improvement in her pain and is doing well overall. She continues to attend physical therapy with benefits. She has no concerns today. [facility] Medical History Hx of breast cancer Hx of essential hypertension Surgical History Hx of hysterectomy No pertinent past surgical history Family History Maternal Grandmother Breast cancer Sister Breast cancer Father Dementia Maternal Aunt Breast cancer Mother No problems noted. Paternal Grandmother Cancer of thyroid Brother No problems noted. Brother No problems noted. Brother No problems noted. Son No problems noted. Son No problems noted. Son No problems noted. Daughter No problems noted. 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 She has forward flexion to 100, abduction to 90 and external rotation to 90 degrees. Slight Weakness with RTC strength testing with empty can and belly press. NVI. Results Reviewed Results Reviewed: Xrays were obtained in the office today and personally reviewed by me of the right shoulder show fracture of the greater tuberosity of the humeral head with interval healing Assessment & Plan Assessment & Plan (1) Fracture of greater tuberosity of right humerus: Code(s): S42.251A - Displaced fracture of greater tuberosity of right humerus, initial encounter for closed fracture Category: Medical Qualifiers: Encounter type: subsequent encounter Fracture alignment: nondisplaced Fracture healing: with routine healing Fracture type: closed Qualified Code(s): S42.254D - Nondisplaced fracture of greater tuberosity of right humerus, subsequent encounter for fracture with routine healing Plan She will continue working with physical therapy to improve her RTC strength. She can increase activities as tolerated. She would like to hold off on further imaging as she feels she is gradually improving. If she has significant pain or weakness, she will contact the office and we will order an MRI of right shoulder, otherwise follow-up as needed. Orders: Orders XR shoulder RT min 2V Today M25.511 - Pain in right shoulder Patient Instructions: Scribed for Micky Hanson PA-C, by Jake Lopez medical coding technician, on 04/23/2024 at 9:00 AM EST.? I, Micky Hanson PA-C, have personally reviewed and agree with the information entered by the scribe. Coding Level of Care Code Est Pt Level 3 (76899) Diagnoses Closed nondisplaced fracture of greater tuberosity of right humerus with routine healing, subsequent encounter S42.254D Encounter type: subsequent encounter Fracture alignment: nondisplaced Fracture healing: with routine healing Fracture type: closed
== END 2024-04-23 10:02 | disposition home or self-care (01) ==
PROVIDERS: PCP Internal Medicine; Visit Provider Physician Assistant
DX: S42.254D Nondisplaced fracture of greater tuberosity of right humerus, subsequent encounter for fracture with routine healing (principal)
CPT/HCPCS: 99213

== ENCOUNTER 2024-04-23 15:30 | Outpatient (REF) | payer MEDICARE, SELFPAY ==
--- NOTE | ~2024-04-23 | XR_ITS ---
EXAMINATION: XR SHOULDER, RIGHT CLINICAL INFORMATION: Right shoulder pain. COMPARISON: Most recent right shoulder radiographs dated 03/12/2024. TECHNIQUE: AP internal rotation and external rotation views of the right shoulder. FINDINGS: Chronic superior subluxation of the humeral head is redemonstrated indicating underlying rotator cuff tendon tears. Moderate acromioclavicular and glenohumeral osteoarthritis, unchanged. Lateral subchondral spurring is redemonstrated. No new fracture or dislocation. No concerning lytic or blastic osseous lesion. XR/XR shoulder RT min 2V IMPRESSION: 1. Chronic superior subluxation of the humeral head is redemonstrated indicating underlying rotator cuff tendon tears. 2. Moderate acromioclavicular and glenohumeral osteoarthritis, unchanged.
== END 2024-04-23 15:31 | disposition home or self-care (01) ==
LOC: HO.HOSX 15:30
PROVIDERS: Visit Provider Physician Assistant
DX: S42.254D Nondisplaced fracture of greater tuberosity of right humerus, subsequent encounter for fracture with routine healing (principal)
CPT/HCPCS: 73030; 99212

== ENCOUNTER 2024-05-03 08:14 | Outpatient (AMB) | payer MEDICARE, SELFPAY ==
--- NOTE | 2024-05-03 08:29 | A.OFFPC_ITS ---
Intake Visit Reasons: Accomandation paperwork~ [phone] Allergies lidocaine Allergy (Intermediate, Verified 05/03/24 08:30) hives penicillin V Allergy (Intermediate, Verified 05/03/24 08:30) rash erythromycin base Allergy (Unknown, Verified 05/03/24 08:30) Rash Medication List - Last Reconciled 05/03/24 by Shane Santos MD ibuprofen 800 mg PO Q8H PRN losartan 50 mg PO DAILY [shower mat As directed] triamcinolone acetonide 0.1% small amount topical daily; 30 days Tobacco use date assessed: 05/03/24 Fall risk assessment: No Falls in past year Last assessed Fall Risk: 05/03/24 Dental Screening Dental Screen Date: 05/03/24 Did you have a dental visit in the last 12 months?: Yes Did you have a dental problem in the last 6 months where you did not have access to dental care?: No Was dental information given to patient?: Patient has dentist HPI Accomandation paperwork~ [phone] HPI Details Patient is 68 year old female her work require her to stand 4-8 hours at work on hard surface it has started causing planter pain patient is requesting paper work to be completed so she can have antifatigue mate to stand on we will address that for the patient [facility] Medical History Hx of breast cancer Hx of essential hypertension Surgical History Hx of hysterectomy No pertinent past surgical history Family History Maternal Grandmother Breast cancer Sister Breast cancer Father Dementia Maternal Aunt Breast cancer Mother No problems noted. Paternal Grandmother Cancer of thyroid Brother No problems noted. Brother No problems noted. Brother No problems noted. Son No problems noted. Son No problems noted. Son No problems noted. Daughter No problems noted. 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 How often do you have a drink containing alcohol?: Never 3. How often do you have six or more drinks on one occasion?: Never Total Score: 0 Score Reviewed/Action Taken: Yes Review of Systems Const Denies chills and Denies fever(s) ENT Denies epistaxis and Denies nasal discharge Card Denies chest pain Resp Denies chest congestion, Denies cough and Denies hemoptysis GI Denies diarrhea and Denies nausea Skin/Breast Denies rash Neuro Reports no additional complaints Psych Reports no additional complaints Endo Reports no additional complaints Physical exam (Primary Care) Tobacco/Smoking Status: Tobacco use Status Tobacco use date assessed 05/03/24 05/03/24 08:30 Patient Tobacco Use Status Never used Tobacco 05/03/24 08:30 e-Cigarette/Vaping Use Never Used 05/03/24 08:30 Thrive Assessment: Date of Thrive Assessment Date Thrive assessed 04/20/22 05/03/24 08:30 Telehealth Telehealth Telehealth Platform: Codealike Location of provider rendering services: practice address Location of patient: address on file Patient Identification confirmed using: Name, : Yes Telehealth method: voice only Patient verbally consented to treatment: Yes Patient verbally consented to billing insurance company: Yes Patient informed of any privacy concerns related to visit: Yes Minutes spent on Phone/Video with Pt.: 13 Assessment and Plan Assessment & Plan (1) Foot pain, bilateral: Code(s): M79.671 - Pain in right foot; M79.672 - Pain in left foot Plan Patient is 68 year old female her work require her to stand 4-8 hours at work on hard surface it has started causing planter pain patient is requesting paper work to be completed so she can have antifatigue mate to stand on we will address that for the patient Coding Level of Care Code Tele Est Pt Level 3 (00798) Diagnoses Foot pain, bilateral M79.671; M79.672
== END 2024-05-03 16:48 | disposition home or self-care (01) ==
LOC: HO.HMGC 08:14
PROVIDERS: PCP Internal Medicine; Visit Provider Internal Medicine
DX: M79.671 Pain in right foot (principal); M79.672 Pain in left foot
CPT/HCPCS: 99442

== ENCOUNTER 2024-05-22 10:47 | Outpatient (AMB) | payer MEDICARE, SELFPAY ==
[2024-05-22 10:56] VITALS: BP 144/86; PULSE 93; O2SAT 96; BMI 32.3
--- NOTE | 2024-05-22 10:56 | MHC.PC.OV ---
Vital Signs 05/22/24 10:56 Height 5 ft 3 in Weight 182 lb 2 oz BMI 32.3 BP 144/86 H Blood Pressure Location Lt brachial Position Sitting Pulse 93 Pulse Source Pulse Oximeter Pulse Oximetry (%) 96 Oxygen Delivery Method Room Air Intake Visit Reasons: Annual PE Allergies lidocaine Allergy (Intermediate, Verified 05/22/24 11:01) hives penicillin V Allergy (Intermediate, Verified 05/22/24 11:01) rash erythromycin base Allergy (Unknown, Verified 05/22/24 11:01) Rash Medication List - Last Reconciled 05/22/24 by Shane Santos MD ibuprofen 800 mg PO Q8H PRN losartan 50 mg PO DAILY [shower mat As directed] triamcinolone acetonide 0.1% small amount topical daily; 30 days Tobacco use date assessed: 05/22/24 Fall risk assessment: 1 Fall in past year Last assessed Fall Risk: 05/22/24 Dental Screening Dental Screen Date: 05/22/24 Did you have a dental visit in the last 12 months?: No Did you have a dental problem in the last 6 months where you did not have access to dental care?: No Was dental information given to patient?: No HPI Annual PE HPI Details Patient is 68-year-old female came in today for physical examination She offers no complaints today Blood pressure is slightly 144/86 She is on losartan 50 mg daily Patient is monitoring her blood pressure at home and it runs around 130s systolic she tells me Patient is currently having right shoulder pain and is going through physical therapy through orthopedic Mammogram was April of this year Colonoscopy will be in 2026 She is no longer having Pap smears Lab order placed to be done in June Last set of labs reviewed done in January Follow-up 6 months physical exam 1 year BMI is elevated need to lose weight PFSH Medical History Hx of breast cancer Hx of essential hypertension Surgical History Hx of hysterectomy No pertinent past surgical history Family History Maternal Grandmother Breast cancer Sister Breast cancer Father Dementia Maternal Aunt Breast cancer Mother No problems noted. Paternal Grandmother Cancer of thyroid Brother No problems noted. Brother No problems noted. Brother No problems noted. Son No problems noted. Son No problems noted. Son No problems noted. Daughter No problems noted. 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 How often do you have a drink containing alcohol?: Never 3. How often do you have six or more drinks on one occasion?: Never Total Score: 0 Score Reviewed/Action Taken: Yes Review of Systems Const Denies chills, Denies fever(s) and Denies headache(s) Eyes Denies blurry vision ENT Denies headache(s), Denies nasal discharge, Denies nasal obstruction, Denies odynophagia and Denies sinus pain Card Denies chest pain at rest and Denies chest pain with activity Resp Denies cough and Denies hemoptysis GI Denies diarrhea, Denies odynophagia, Denies vomiting and Denies hematemesis Reports as per HPI Musc Denies abnormal gait Skin/Breast Reports as per HPI Neuro Denies Neuro-related abnormal movements, Denies Abnormal speech present, Denies abnormal gait, Denies headache(s) and Denies Sensory deficit (Neuro) Psych Denies mood swings and Denies paranoia Endo Reports as per HPI Lionel/Lymph Reports as per HPI Aller/Immun Reports as per HPI Physical exam (Primary Care) Vital Signs: Last Vital Signs Pulse 93 05/22/24 10:56 BP 144/86 H 05/22/24 10:56 Pulse Ox 96 05/22/24 10:56 Oxygen Delivery Method Room Air 05/22/24 10:56 BMI result Body Mass Index 32.3 Tobacco/Smoking Status: Tobacco use Status Tobacco use date assessed 05/22/24 05/22/24 11:01 Patient Tobacco Use Status Never used Tobacco 05/22/24 11:01 e-Cigarette/Vaping Use Never Used 05/22/24 11:01 Thrive Assessment: Date of Thrive Assessment Date Thrive assessed 04/20/22 05/22/24 11:01 Const General: cooperative, comfortable and no acute distress Orientation/consciousness: patient oriented x3 HENMT Head: Yes normocephalic and Yes atraumatic Eyes General: appearance normal, both eyes and all related structures Pupils: Equal, round and reactive pupils present EOM: EOMs intact bilaterally Neck Neck: Yes supple and No lymphadenopathy Thyroid: Thyroid normal Lymphatic: no lymphadenopathy noted Chest Breast/axilla palpation: normal palpation of the breasts Resp Effort & Inspection: normal respiratory effort and able to speak in complete sentences Auscultation: clear to auscultation bilaterally Cardio Heart sounds: S1 normal heart sound present and S2 normal heart sound present GI Palpation (GI): Soft to palpation and nontender Auscultation: normal bowel sounds General: Yes no CVA tenderness Back/Spine/Pelvis Back: no CVA tenderness Skin General skin exam: elasticity normal and turgor normal Neuro General: patient oriented x3 and gait normal Cranial nerves: Yes Equal, round and reactive pupils present Speech: No Abnormal speech present Sensory Exam: No Sensory deficit (Neuro) Extrem General: No edema Assessment and Plan Assessment & Plan (1) Annual physical exam: Code(s): Z00.00 - Encounter for general adult medical examination without abnormal findings (2) Obesity due to excess calories: Code(s): E66.09 - Other obesity due to excess calories Qualifiers: Body mass index: BMI 32.0-32.9 Obesity classification: adult class 1 (BMI 30 - 34.9) Serious obesity comorbidity presence: with serious comorbidity Qualified Code(s): E66.09 - Other obesity due to excess calories; Z68.32 - Body mass index [BMI] 32.0-32.9, adult (3) Bladder prolapse: (4) Hypertension, essential: Code(s): I10 - Essential (primary) hypertension (5) Rotator cuff tear, right: Code(s): M75.101 - Unspecified rotator cuff tear or rupture of right shoulder, not specified as traumatic Qualifiers: Rotator cuff tear extent: incomplete Rotator cuff tear trauma status: nontraumatic Qualified Code(s): M75.111 - Incomplete rotator cuff tear or rupture of right shoulder, not specified as traumatic Plan Patient is 68-year-old female came in today for physical examination She offers no complaints today Blood pressure is slightly 144/86 She is on losartan 50 mg daily Patient is monitoring her blood pressure at home and it runs around 130s systolic she tells me Patient is currently having right shoulder pain and is going through physical therapy through orthopedic Mammogram was April of this year Colonoscopy will be in 2026 She is no longer having Pap smears Lab order placed to be done in June Last set of labs reviewed done in January Follow-up 6 months physical exam 1 year BMI is elevated need to lose weight Orders: Orders Lipid Panel Today E66.09 - Other obesity due to excess calories, I10 - Essential (primary) hypertension, M75.101 - Unspecified rotator cuff tear or rupture of right shoulder, not specified as traumatic, Z00.00 - Encounter for general adult medical examination without abnormal findings, Z68.32 - Body mass index [BMI] 32.0-32.9, adult Complete Blood Count Auto Diff Today E66.09 - Other obesity due to excess calories, I10 - Essential (primary) hypertension, M75.101 - Unspecified rotator cuff tear or rupture of right shoulder, not specified as traumatic, Z00.00 - Encounter for general adult medical examination without abnormal findings, Z68.32 - Body mass index [BMI] 32.0-32.9, adult Comprehensive [place]. Panel Fast Today E66.09 - Other obesity due to excess calories, I10 - Essential (primary) hypertension, M75.101 - Unspecified rotator cuff tear or rupture of right shoulder, not specified as traumatic, Z00.00 - Encounter for general adult medical examination without abnormal findings, Z68.32 - Body mass index [BMI] 32.0-32.9, adult TSH reflex Free T4 Today E66.09 - Other obesity due to excess calories, I10 - Essential (primary) hypertension, M75.101 - Unspecified rotator cuff tear or rupture of right shoulder, not specified as traumatic, Z00.00 - Encounter for general adult medical examination without abnormal findings, Z68.32 - Body mass index [BMI] 32.0-32.9, adult Vitamin D 25-OH (D2 and D3) Today E66.09 - Other obesity due to excess calories, I10 - Essential (primary) hypertension, M75.101 - Unspecified rotator cuff tear or rupture of right shoulder, not specified as traumatic, Z00.00 - Encounter for general adult medical examination without abnormal findings, Z68.32 - Body mass index [BMI] 32.0-32.9, adult Coding Level of Care Code Est Pt Prev Care >65y(53631) Diagnoses Annual physical exam Z00.00 Class 1 obesity due to excess calories with serious comorbidity and body mass index (BMI) of 32.0 to 32.9 in adult E66.09; Z68.32 Body mass index: BMI 32.0-32.9 Obesity classification: adult class 1 (BMI 30 - 34.9) Serious obesity comorbidity presence: with serious comorbidity Bladder prolapse Hypertension, essential I10 Nontraumatic incomplete tear of right rotator cuff M75.111 Rotator cuff tear extent: incomplete Rotator cuff tear trauma status: nontraumatic
== END 2024-05-22 11:20 | disposition home or self-care (01) ==
PROVIDERS: Visit Provider Internal Medicine
DX: Z00.00 Encounter for general adult medical examination without abnormal findings (principal); E66.09 Other obesity due to excess calories; Z68.32 Body mass index [BMI] 32.0-32.9, adult; I10 Essential (primary) hypertension; M75.111 Incomplete rotator cuff tear or rupture of right shoulder, not specified as traumatic
CPT/HCPCS: 99397

== ENCOUNTER 2024-06-18 08:00 | Outpatient (RCR) | payer MEDICARE, SELFPAY ==
--- NOTE | 2024-01-26 11:51 | MHC.PT.EP ---
[facility] [place] Office [place] Office [place] Office [address] Morgan Gomez [address] [phone] F: [phone] F: [phone] F: [phone] F: [phone] Physical Therapy Plan of Care Date of Evaluation: 01/26/24 Date of Surgery: n/a Diagnosis: displaced fx greater tuberosity of R humerus Assessment: Patient is a 68 year old female presenting to PT s/p displaced fx greater tuberosity of R humerus. Pt reports onset of pain began 12/01/2023 due to falling on ice. She presents today with impairments in pain, ROM, strength, posture. Pt's current occupation is [employer] at [employer], with baseline physical activities including reaching, lifting, ADLs, work. Pt expresses correction goal of returning to PLOF, and is motivated to work towards this in PT. Clinical presentation today is most consistent with signs and sx associated with displaced fx greater tuberosity of R humerus and pt will benefit from skilled PT 2 week x 8 weeks to address the following problems and impairments noted upon evaluation: pain, ROM, strength, posture. These problems limit the patient with the following functional activities: reaching, lifting, ADLs, work. The prescribed treatment plan of care is medically necessary. Co-morbidities of HTN were identified and taken into considerations of plan of care. Pt was educated on HEP, role of PT, prognosis, POC. Frequency and Duration: The patient will be seen 2 x week x 8 weeks Short Term Goals: Pt will demonstrate full ROM in 4 weeks. Pt will demonstrate R MMT strength at least 3/5 in 4 weeks. Pt will demonstrate improved postural awareness by sitting with biomechanically correct posture without cues throughout session to improve overall postural function in 4 weeks. Stocking Inspector Goals: Pt will demonstrate improved SPADI score by 13 points in 8 weeks for improved functional mobility. Pt will demonstrate improved R shoulder MMT strength at least 4/5 for improved ability to complete household duties. Pt will demonstrate ability complete ADLS with min to no pain or limitation in 8 weeks for return to PLOF. Treatment Plan: Modalities to reduce pain, spasms and effusion. Manual therapy to restore motion and function. Therapeutic exercise to improve strength and flexibility. Neuromuscular re-education for posture and balance. Therapeutic activities to return to functional activities of daily living. Electronically signed by: Gita Jules, PT, DPT, ATC Please sign and return to therapist. Thank you for your referral.
--- NOTE | 2024-06-18 08:53 | MHC.PT.DC ---
[facility] [place] Office [place] Office [place] Office [address] Morgan Gomez [address] [phone] F: [phone] F: [phone] F: [phone] F: [phone] Physical Therapy Discharge Report Diagnosis: displaced fx greater tuberosity of R humerus Date of Surgery: n/a Date of Evaluation: 01/26/24 Date of Discharge: 06/18/24 Treatments to Date: 16 Cancellations to Date: 7 No Shows to Date: 0 Discharge Status: Independent with [facility]P Recommend MD Follow-up Discharge Summary: 06/18/2024: Pt has made progress since start of care in pain and ROM. Unfortunately she has not been making gains in strength over the last couple months. As a result of lack of practice we have been unable to progress her further in PT. At this time max benefits of PT have been provided and skilled PT is no longer indicated. 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 She is in agreement with d/c today. Electronically signed by: Gita Jules, PT, DPT, ATC Please sign and return to therapist. Thank you for your referral.
== END 2024-06-18 08:54 | disposition home or self-care (01) ==
LOC: HO.PTCHIC 08:00
PROVIDERS: PCP Internal Medicine; Visit Provider Physician Assistant
DX: S42.251D Displaced fracture of greater tuberosity of right humerus, subsequent encounter for fracture with routine healing (principal)
CPT/HCPCS: 97110; 97161

== ENCOUNTER 2024-08-09 08:15 | Outpatient (REF) | payer MEDICARE, SELFPAY ==
[2024-08-09 10:05] LABS: MANUAL DIFF FLAG NO
[2024-08-09 10:12] LABS: Basophils Percent Auto 0.6 % (0-2); Eosinophils Absolute Auto 0.2 X10*3/uL (0.0-0.4); Hematocrit 42.1 % (37.0-47.0); Hemoglobin 13.8 g/dl (12.0-16.0); Imm Gran Abs Auto 0.02 X10*3/uL (0.00-0.03); Imm Gran Pct Auto 0.3 % (0.0-0.4); Lymphocytes Absolute Auto 1.5 X10*3/uL (1.2-4.9); Lymphocytes Percent Auto 22.2 % (20-40); Mean Corpuscular HGB Conc 32.8 g/dl (31.0-35.0); Mean Corpuscular Hemoglobin 33.3 pg (27.0-33.0); Mean Corpuscular Volume 101.4 fL (80.0-98.0); Monocytes Absolute Auto 0.7 X10*3/uL (0.1-1.2); Neutrophils Absolute Auto 4.2 x10*3/uL (2.0-8.3); Neutrophils Percent Auto 63.9 % (45-73); Platelet Count 280 X10*3/uL (160-400); Red Blood Count 4.15 X10*6/uL (4.20-5.50); Red Cell Distribution Width 15.9 % (11.0-16.0); White Blood Count 6.6 X10*3/uL (4.8-10.8)
[2024-08-09 10:40] LABS: Alanine Aminotransferase 16 U/L (0-31); Albumin Level 4.2 g/dL (3.5-5.0); Alkaline Phosphatase 94 U/L (39-117); Anion Gap 12 (12-20); Aspartate Amino Transferase 21 U/L (5-31); Bilirubin Total 0.5 mg/dL (0.0-1.0); Blood Urea Nitrogen 8 mg/dL (9-16); Calcium 9.5 mg/dL (8.4-10.2); Carbon Dioxide 25 mmol/L (22-29); Chloride 106 mmol/L (96-108); Cholesterol 195 mg/dL (<200); Estimated Glomerular Filt Rate > 60; Glucose Fasting 92 mg/dL (60-99); HDL Cholesterol 79 mg/dL (>40); LDL Cholesterol Calculated 90 mg/dL (<100); Potassium 4.1 mmol/L (3.3-5.1); Sodium 139 mmol/L (135-145); Total Protein 7.2 g/dL (6.5-8.0); Triglycerides 130 mg/dL (<150)
[2024-08-13 16:28] LABS: Vitamin D 25-OH, D2 <4 ng/mL; Vitamin D 25-OH, D3 35 ng/mL; Vitamin D 25-OH, Total 35 ng/mL (30-100)
== END 2024-08-09 08:16 | disposition home or self-care (01) ==
LOC: HO.HMGCLDS 08:15
PROVIDERS: PCP Internal Medicine; Visit Provider Internal Medicine
DX: Z00.00 Encounter for general adult medical examination without abnormal findings (principal); E66.09 Other obesity due to excess calories; Z68.32 Body mass index [BMI] 32.0-32.9, adult; I10 Essential (primary) hypertension; M75.101 Unspecified rotator cuff tear or rupture of right shoulder, not specified as traumatic
CPT/HCPCS: 36415; 80053; 80061; 82306; 84443; 85025

== ENCOUNTER 2024-08-10 08:35 | Outpatient (AMB) | payer MEDICARE, SELFPAY ==
--- NOTE | 2024-08-10 08:41 | MHC.PC.OV ---
Vital Signs 08/10/24 08:45 Height 5 ft 3 in Weight 181 lb 8 oz BMI 32.1 BP 126/78 Blood Pressure Location Lt brachial Position Sitting Pulse 92 Pulse Source Pulse Oximeter Pulse Oximetry (%) 96 Oxygen Delivery Method Room Air Intake Visit Reasons: HipPain Allergies lidocaine Allergy (Intermediate, Verified 08/10/24 08:47) hives penicillin V Allergy (Intermediate, Verified 08/10/24 08:47) rash erythromycin base Allergy (Unknown, Verified 08/10/24 08:47) Rash Medication List - Last Reconciled 08/10/24 by Shane Santos MD diclofenac sodium 75 mg PO BID 10 days ibuprofen 800 mg PO Q8H PRN losartan 50 mg PO DAILY prednisone 20 mg PO DAILY 5 days [shower mat As directed] triamcinolone acetonide 0.1% small amount topical daily; 30 days Tobacco use date assessed: 08/10/24 Fall risk assessment: No Falls in past year Last assessed Fall Risk: 08/10/24 Dental Screening Dental Screen Date: 08/10/24 Did you have a dental visit in the last 12 months?: Yes Did you have a dental problem in the last 6 months where you did not have access to dental care?: No Was dental information given to patient?: Patient has dentist HPI HipPain HPI Details Patient is 68-year-old female came in today to be evaluated for lower back pain Her pain is located in lower back on examination more so on the left side over the sacroiliac joint She also have a pain radiating to her left leg And is holding her left hip as the site of pain On examination her hip joint has reasonable range of motion I am ordering x-ray of her lumbar spine, SI joint left side and hip I have sent prednisone and diclofenac to be taken with food She is to stop taking ibuprofen We will set up a telephone visit in a week to see how she is doing and then proceed with further management PFSH Medical History Hx of breast cancer Hx of essential hypertension Surgical History Hx of hysterectomy No pertinent past surgical history Family History Maternal Grandmother Breast cancer Sister Breast cancer Father Dementia Maternal Aunt Breast cancer Mother No problems noted. Paternal Grandmother Cancer of thyroid Brother No problems noted. Brother No problems noted. Brother No problems noted. Son No problems noted. Son No problems noted. Son No problems noted. Daughter No problems noted. 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 1. Little interest or pleasure in doing things: not at all 2. Feeling down, depressed, or hopeless: not at all 3. Trouble falling or staying asleep, or sleeping too much: not at all 4. Feeling tired or having little energy: not at all 5. Poor appetite or overeating: not at all 6. Feeling bad about yourself - or that you are a failure or have let yourself or your family down: not at all 7. Trouble concentrating on things, such as reading the newspaper or watching television: not at all 8. Moving or speaking so slowly that other people could have noticed. Or the opposite - being so fidgety or restless that you have been moving around a lot more than usual: not at all 9. Thoughts that you would be better off or of hurting yourself in some way: not at all Total score: 0 Depression Screening Interpretation: Negative Depression Screening Done: Yes 90656 - PHQ-9 Billing: Yes Source: Developed by Drs. Sammy Phillips, Trinidad Peterson, Binh Hayes and colleagues, with an educational emory from [employer]. Thrive Questionnaire Date Thrive assessed: 08/10/24 I am a: Patient What is your living situation today?: I have a steady place to live Within the past 12 months, did the food you bought not last and you didn't have the money to get more?: Often true Within the past 12 months, did you worry whether your food would run out before you got money to buy more?: Never true Do you have trouble paying for medicines?: No Do you have trouble getting transportation to medical appointments?: No Do you have trouble paying your heating and electricity bill?: No Do you have trouble taking care of your child, family member or friend?: No Do you have trouble with day-to-day activities such as bathing, preparing meals, shopping, managing finances, etc.?: No Are you interested in more education?: No Please select the resources that you would like help with: None Currently or been in a relationship where the following occur: No concerns reported THRIVE Score: 1 AUDIT C Alcohol Use Questionnaire (AUDIT-C) 1. How often do you have a drink containing alcohol?: Never 3. How often do you have six or more drinks on one occasion?: Never Total Score: 0 Score Reviewed/Action Taken: Yes SIA-7 AMB Questionnaire SIA-7 Date SIA - 7 assessed: 08/10/24 Feeling nervous, anxious, or on edge: 0 = Not at all Not being able to stop or control worryin = Not at all Worrying too much about different things: 0 = Not at all Trouble relaxin = Not at all Being so restless that it is hard to sit still: 0 = Not at all Becoming easily annoyed or irritable: 0 = Not at all Feeling afraid as if something awful might happen: 0 = Not at all Total SIA-7 score (0-4 normal; 5-9 mild; 10-14 moderate; 15-21 severe): 0 Source: Developed by Drs. Sammy Phillips, Trinidad Peterson, Binh Hayes and colleagues, with an educational emory from [employer]. SIA-7 Assessment Billing SIA-7 Assessment Tool: SIA-7 Assessment 65496 Review of Systems Const Denies chills and Denies fever(s) ENT Denies epistaxis and Denies nasal discharge Card Denies chest pain Resp Denies chest congestion, Denies cough and Denies hemoptysis GI Denies diarrhea and Denies nausea Skin/Breast Denies rash Neuro Reports no additional complaints Psych Reports no additional complaints Endo Reports no additional complaints Physical exam (Primary Care) Vital Signs: Last Vital Signs Pulse 92 08/10/24 08:45 BP 126/78 08/10/24 08:45 Pulse Ox 96 08/10/24 08:45 Oxygen Delivery Method Room Air 08/10/24 08:45 BMI result Body Mass Index 32.1 Tobacco/Smoking Status: Tobacco use Status Tobacco use date assessed 08/10/24 08/10/24 08:48 Patient Tobacco Use Status Never used Tobacco 08/10/24 08:42 e-Cigarette/Vaping Use Never Used 08/10/24 08:42 PHQ-9: PHQ-9 Score PHQ-9: Total score 0 08/10/24 08:48 Depression Screening Interpretation: Negative Thrive Assessment: Date of Thrive Assessment Date Thrive assessed 08/10/24 08/10/24 08:42 Currently or been in a relationship where the following occur: No concerns reported Const General: cooperative, comfortable and no acute distress Orientation/consciousness: patient oriented x3 HENMT Head: Yes normocephalic Eyes General: appearance normal, both eyes and all related structures Neck Neck: Yes supple Resp Effort & Inspection: normal respiratory effort, no cough and no stridor Back/Spine/Pelvis Back/spine/pelvis image: 1. Pain with percussion 2. Pain with percussion 3. Hip joint with reasonable range of motion Skin General skin exam: turgor normal Neuro General: patient oriented x3, tone normal and moves all extremities Extrem Right lower extremity: no edema Left lower extremity: no edema Assessment and Plan Assessment & Plan (1) Lower back pain: Code(s): M54.50 - Low back pain, unspecified Qualifiers: Chronicity: acute Back pain laterality: left Sciatica presence: with sciatica Sciatica laterality: sciatica of left side Qualified Code(s): M54.42 - Lumbago with sciatica, left side (2) Sacroiliac joint pain: Code(s): M53.3 - Sacrococcygeal disorders, not elsewhere classified (3) Hip pain, left: Code(s): M25.552 - Pain in left hip Plan Patient is 68-year-old female came in today to be evaluated for lower back pain Her pain is located in lower back on examination more so on the left side over the sacroiliac joint holding her left hip as the site of pain On examination her hip joint has reasonable range of motion I am ordering x-ray of her lumbar spine, SI joint left side and hip Pain is radiating down left leg in the back I have sent prednisone and diclofenac to be taken with food She is to stop taking ibuprofen We will set up a telephone visit in a week to see how she is doing and then proceed with further management Orders: Orders XR lumbar spine 2-3V Today M25.552 - Pain in left hip, M53.3 - Sacrococcygeal disorders, not elsewhere classified, M54.50 - Low back pain, unspecified XR sacroiliac joint 1-2V Today M25.552 - Pain in left hip, M53.3 - Sacrococcygeal disorders, not elsewhere classified, M54.50 - Low back pain, unspecified XR hip LT min 2V Today M25.552 - Pain in left hip, M53.3 - Sacrococcygeal disorders, not elsewhere classified, M54.50 - Low back pain, unspecified Medications: New diclofenac sodium 75 mg PO BID 10 days 20 tabs 0RF pain prednisone 20 mg PO DAILY 5 days 5 tabs 0RF Coding Level of Care Code Est Pt Level 3 (63456) Diagnoses Acute left-sided low back pain with left-sided sciatica M54.42 Chronicity: acute Back pain laterality: left Sciatica presence: with sciatica Sciatica laterality: sciatica of left side Sacroiliac joint pain M53.3 Hip pain, left M25.552 Additional Codes SIA-7 Assessment Billing - SIA-7 Assessment Tool: SIA-7 Assessment [id number] ([id number])
[2024-08-10 08:45] VITALS: BP 126/78; PULSE 92; O2SAT 96; BMI 32.1
== END 2024-08-10 13:20 | disposition home or self-care (01) ==
PROVIDERS: PCP Internal Medicine; Visit Provider Internal Medicine
DX: M54.42 Lumbago with sciatica, left side (principal); M53.3 Sacrococcygeal disorders, not elsewhere classified; M25.552 Pain in left hip

== ENCOUNTER → 2024-08-10 08:35 | Outpatient (BNVA) | payer MEDICARE, SELFPAY | PROVIDERS: PCP Internal Medicine; Visit Provider Internal Medicine ==

== ENCOUNTER 2024-08-10 08:55 | Outpatient (REF) | payer MEDICARE, SELFPAY ==
--- NOTE | ~2024-08-10 | XR_ITS ---
EXAMINATION: XR LUMBAR SPINE XR SACROILIAC JOINTS XR HIP, LEFT CLINICAL INFORMATION: Lower back pain. COMPARISON: CT abdomen/pelvis dated 04/05/2021. TECHNIQUE: AP, lateral, and coned-down views of the lumbar spine. AP and bilateral Judet views of the sacroiliac joints. AP and frog-leg lateral view of the left hip. FINDINGS: LUMBAR SPINE: The lumbar lordosis is maintained. Grade 1 anterolisthesis of L4 on L5, slightly increased in prominence when compared to the CT from 2020. No acute fracture. No loss of vertebral body height. Mild multilevel loss of intervertebral disc height with small endplate osteophytes. Multilevel bilateral facet arthropathy, progressed when compared to the prior examination. No concerning lytic or blastic osseous lesion. SACROILIAC JOINTS: Mild bilateral sacroiliac joint space narrowing with tiny marginal osteophytes, similar when compared to the prior CT. No periarticular erosion. Moderate degenerative arthritis redemonstrated at the symphysis pubis. No concerning lytic or blastic osseous lesion. No fracture. LEFT HIP: Mild joint space narrowing with small marginal osteophytes, unchanged. Degenerative spurring at the greater trochanter. No concerning lytic or blastic osseous lesion. No evidence of femoral head avascular necrosis. No acute fracture or dislocation. XR/XR sacroiliac joint 1-2V IMPRESSION: LUMBAR SPINE: Grade 1 anterolisthesis of L4 on L5, slightly increased when compared to the CT from 2020. Multilevel degenerative disc disease and bilateral facet arthropathy, progressed when compared to the CT from 2020. SACROILIAC JOINTS: Mild bilateral sacroiliac joint osteoarthritis, unchanged. 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 LEFT HIP: Mild osteoarthritis, unchanged. No acute fracture or dislocation. Electronically signed by: Golden Best MD 08/28/2024 08:52 PM EDT
--- NOTE | ~2024-08-10 | XR_ITS ---
EXAMINATION: XR LUMBAR SPINE XR SACROILIAC JOINTS XR HIP, LEFT CLINICAL INFORMATION: Lower back pain. COMPARISON: CT abdomen/pelvis dated 04/05/2021. TECHNIQUE: AP, lateral, and coned-down views of the lumbar spine. AP and bilateral Judet views of the sacroiliac joints. AP and frog-leg lateral view of the left hip. FINDINGS: LUMBAR SPINE: The lumbar lordosis is maintained. Grade 1 anterolisthesis of L4 on L5, slightly increased in prominence when compared to the CT from 2020. No acute fracture. No loss of vertebral body height. Mild multilevel loss of intervertebral disc height with small endplate osteophytes. Multilevel bilateral facet arthropathy, progressed when compared to the prior examination. No concerning lytic or blastic osseous lesion. SACROILIAC JOINTS: Mild bilateral sacroiliac joint space narrowing with tiny marginal osteophytes, similar when compared to the prior CT. No periarticular erosion. Moderate degenerative arthritis redemonstrated at the symphysis pubis. No concerning lytic or blastic osseous lesion. No fracture. LEFT HIP: Mild joint space narrowing with small marginal osteophytes, unchanged. Degenerative spurring at the greater trochanter. No concerning lytic or blastic osseous lesion. No evidence of femoral head avascular necrosis. No acute fracture or dislocation. XR/XR hip LT min 2V IMPRESSION: LUMBAR SPINE: Grade 1 anterolisthesis of L4 on L5, slightly increased when compared to the CT from 2020. Multilevel degenerative disc disease and bilateral facet arthropathy, progressed when compared to the CT from 2020. SACROILIAC JOINTS: Mild bilateral sacroiliac joint osteoarthritis, unchanged. 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 LEFT HIP: Mild osteoarthritis, unchanged. No acute fracture or dislocation. Electronically signed by: Golden Best MD 08/28/2024 08:52 PM EDT
--- NOTE | ~2024-08-10 | XR_ITS ---
EXAMINATION: XR LUMBAR SPINE XR SACROILIAC JOINTS XR HIP, LEFT CLINICAL INFORMATION: Lower back pain. COMPARISON: CT abdomen/pelvis dated 04/05/2021. TECHNIQUE: AP, lateral, and coned-down views of the lumbar spine. AP and bilateral Judet views of the sacroiliac joints. AP and frog-leg lateral view of the left hip. FINDINGS: LUMBAR SPINE: The lumbar lordosis is maintained. Grade 1 anterolisthesis of L4 on L5, slightly increased in prominence when compared to the CT from 2020. No acute fracture. No loss of vertebral body height. Mild multilevel loss of intervertebral disc height with small endplate osteophytes. Multilevel bilateral facet arthropathy, progressed when compared to the prior examination. No concerning lytic or blastic osseous lesion. SACROILIAC JOINTS: Mild bilateral sacroiliac joint space narrowing with tiny marginal osteophytes, similar when compared to the prior CT. No periarticular erosion. Moderate degenerative arthritis redemonstrated at the symphysis pubis. No concerning lytic or blastic osseous lesion. No fracture. LEFT HIP: Mild joint space narrowing with small marginal osteophytes, unchanged. Degenerative spurring at the greater trochanter. No concerning lytic or blastic osseous lesion. No evidence of femoral head avascular necrosis. No acute fracture or dislocation. XR/XR lumbar spine 2-3V IMPRESSION: LUMBAR SPINE: Grade 1 anterolisthesis of L4 on L5, slightly increased when compared to the CT from 2020. Multilevel degenerative disc disease and bilateral facet arthropathy, progressed when compared to the CT from 2020. SACROILIAC JOINTS: Mild bilateral sacroiliac joint osteoarthritis, unchanged. 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 LEFT HIP: Mild osteoarthritis, unchanged. No acute fracture or dislocation. Electronically signed by: Golden Best MD 08/28/2024 08:52 PM EDT
== END 2024-08-10 08:56 | disposition home or self-care (01) ==
LOC: HO.HMGCX 08:55
PROVIDERS: PCP Internal Medicine; Visit Provider Internal Medicine
DX: M54.50 Low back pain, unspecified (principal); M53.3 Sacrococcygeal disorders, not elsewhere classified; M25.552 Pain in left hip
CPT/HCPCS: 72100; 72200; 73502; 96127; 99212

== ENCOUNTER 2024-08-29 08:01 | Outpatient (AMB) | payer MEDICARE, SELFPAY ==
--- NOTE | 2024-08-29 08:03 | AM.OFFWIN_ITS ---
Intake Vital Signs 08/29/24 08:08 Height 5 ft 3 in Weight 184 lb BMI 32.6 BP 120/80 Blood Pressure Location Rt brachial Position Sitting Pulse 104 H Pulse Source Pulse Oximeter Pulse Oximetry (%) 98 Oxygen Delivery Method Room Air Intake Visit Reasons: EP ?UTI Intake Note: Patient here for burning when urinating that started last night. Patient Tobacco Use Status: Never used Tobacco Allergies lidocaine Allergy (Intermediate, Verified 08/29/24 08:09) hives penicillin V Allergy (Intermediate, Verified 08/29/24 08:09) rash erythromycin base Allergy (Unknown, Verified 08/29/24 08:09) Rash Do you need a note to return to daycare/school/sports/work: No HPI HPI Comments History of Present Illness Details Patient is a 68-year-old female complaining of 1 day of burning with urination and increased frequency of urination. She denies any blood in her urine or fevers but does endorse some low back pain. She does have chronic low back pain and a history of kidney stones. She states this feels a little bit similar to kidney stones that she has had in the past but not exactly the same. FOR[facility]LY [facility] Medical History Hx of breast cancer Hx of essential hypertension Surgical History Hx of hysterectomy No pertinent past surgical history Family History Maternal Grandmother Breast cancer Sister Breast cancer Father Dementia Maternal Aunt Breast cancer Mother No problems noted. Paternal Grandmother Cancer of thyroid Brother No problems noted. Brother No problems noted. Brother No problems noted. Son No problems noted. Son No problems noted. Son No problems noted. Daughter No problems noted. 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 Sexual orientation: Straight/Heterosexual Gender identity: Female Cognitive needs: No Hearing needs: No Vision needs: Yes Review of Systems Const All systems reviewed & are unremarkable except as noted in HPI and below Physical Exam Vital Signs: Last Vital Signs Pulse 104 H 08/29/24 08:08 BP 120/80 08/29/24 08:08 Pulse Ox 98 08/29/24 08:08 Oxygen Delivery Method Room Air 08/29/24 08:08 BMI result Body Mass Index 32.6 Const General: cooperative, healthy appearing, comfortable and no acute distress Orientation/consciousness: patient oriented x3 HEENT Head: Yes normal to inspection Ears: hearing grossly normal bilaterally General nose exam: Normal external nose present Face and sinus: Yes normal facial exam Neck Neck: Yes normal visual inspection, Yes trachea midline and Yes supple Resp Effort & Inspection: normal respiratory effort and able to speak in complete sentences General: Yes no CVA tenderness Back/Spine/Pelvis Back: no CVA tenderness Skin General skin exam: no rashes or lesions noted Neuro General: patient oriented x3 Psych Appearance: grossly normal Speech and movement: Normal speech and movement present Attitude: cooperative Thought process: Normal thought process present Insight: Good insight present (Psych) Judgement: Good judgement present (Psych) Assessment & Plan Assessment & Plan (1) UTI (urinary tract infection): Comment: Code(s): N39.0 - Urinary tract infection, site not specified Qualifiers: Urinary tract infection type: acute cystitis Hematuria presence: with hematuria Qualified Code(s): N30.01 - Acute cystitis with hematuria Plan: UA positive for leukocyte esterase negative for nitrites and positive for blood. Patient states she has tolerated cephalosporins in the past so I sent cefuroxime. Explained to her that this could be kidney stones and told her if she develops worsening low back pain, fever or is unable to urinate or sees blood in her urine then she should go to the emergency room for an evaluation for kidney stones. Patient understands and agrees with plan. Patient also requesting Pyridium for pain. Plan See above Medications: New cefuroxime axetil 500 mg PO Q12H 10 tabs 0RF phenazopyridine 100 mg PO TID PRN 6 tabs 0RF Pain Coding Level of Care Code Est Pt Level 3 (96922) Diagnoses Acute cystitis with hematuria N30.01 Urinary tract infection type: acute cystitis Hematuria presence: with hematuria
[2024-08-29 08:08] VITALS: BP 120/80; PULSE 104; O2SAT 98; BMI 32.6
== END 2024-08-29 08:33 | disposition home or self-care (01) ==
PROVIDERS: PCP Internal Medicine; Visit Provider Physician Assistant
DX: N30.01 Acute cystitis with hematuria (principal); Z13.9 Encounter for screening, unspecified

== ENCOUNTER → 2024-08-29 08:01 | Outpatient (BNVA) | payer MEDICARE, SELFPAY | PROVIDERS: PCP Internal Medicine; Visit Provider Physician Assistant | DX: N30.01 Acute cystitis with hematuria (principal) | CPT/HCPCS: 81003; 99212 ==

== ENCOUNTER 2024-09-12 08:43 | Outpatient (AMB) | payer MEDICARE, SELFPAY ==
[2024-09-12 08:49] VITALS: BP 162/88; PULSE 51; O2SAT 96; BMI 31.9
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
== END 2024-09-12 09:20 | disposition home or self-care (01) ==
LOC: HO.PMC 08:44
PROVIDERS: PCP Internal Medicine; Referring Provider Internal Medicine; Visit Provider Registered Nurse Emergency
DX: M53.3 Sacrococcygeal disorders, not elsewhere classified (principal); M47.816 Spondylosis without myelopathy or radiculopathy, lumbar region
CPT/HCPCS: 99204; G2211

== ENCOUNTER → 2024-09-12 08:43 | Outpatient (BNVA) | payer MEDICARE, SELFPAY | PROVIDERS: PCP Internal Medicine; Referring Provider Internal Medicine; Visit Provider Registered Nurse Emergency | DX: M53.3 Sacrococcygeal disorders, not elsewhere classified (principal); M47.816 Spondylosis without myelopathy or radiculopathy, lumbar region | CPT/HCPCS: 99202 ==

== ENCOUNTER 2024-10-10 08:49 | Outpatient (AMB) | payer MEDICARE, SELFPAY ==
[2024-10-10 09:08] VITALS: BP 139/75; PULSE 82; RESP 18; BMI 31.9
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
== END 2024-10-10 09:44 | disposition home or self-care (01) ==
PROVIDERS: PCP Internal Medicine; Visit Provider Registered Nurse Emergency
DX: M53.3 Sacrococcygeal disorders, not elsewhere classified (principal); M47.816 Spondylosis without myelopathy or radiculopathy, lumbar region
CPT/HCPCS: 99213; G2211

== ENCOUNTER → 2024-10-10 08:49 | Outpatient (BNVA) | payer MEDICARE, SELFPAY | PROVIDERS: PCP Internal Medicine; Visit Provider Registered Nurse Emergency | DX: M53.3 Sacrococcygeal disorders, not elsewhere classified (principal); M47.816 Spondylosis without myelopathy or radiculopathy, lumbar region | CPT/HCPCS: 99212 ==

== ENCOUNTER 2024-10-19 13:53 | Outpatient (AMB) | payer MEDICARE, SELFPAY ==
[2024-10-19 13:56] VITALS: BP 144/82; PULSE 93; O2SAT 97; BMI 33.0
--- NOTE | 2024-10-19 13:56 | A.OFFPC_ITS ---
Vital Signs 10/19/24 13:56 Height 5 ft 3 in Weight 186 lb 6 oz BMI 33.0 BP 144/82 H Blood Pressure Location Rt brachial Position Sitting Pulse 93 Pulse Source Pulse Oximeter Pulse Oximetry (%) 97 Oxygen Delivery Method Room Air Intake Visit Reasons: FMLA Paperwork Allergies lidocaine Allergy (Intermediate, Verified 10/19/24 14:01) hives penicillin V Allergy (Intermediate, Verified 10/19/24 14:01) rash erythromycin base Allergy (Unknown, Verified 10/19/24 14:01) Rash Medication List - Last Reconciled 10/19/24 by Shane Santos MD losartan 50 mg PO DAILY [shower mat As directed] triamcinolone acetonide 0.1% small amount topical daily; 30 days Tobacco use date assessed: 10/19/24 Fall risk assessment: No Falls in past year Last assessed Fall Risk: 10/19/24 Dental Screening Dental Screen Date: 10/19/24 Did you have a dental visit in the last 12 months?: No Did you have a dental problem in the last 6 months where you did not have access to dental care?: No Was dental information given to patient?: Patient has dentist HPI FMLA Paperwork HPI Details Assessment and Plan 68-year-old female with a history of ost eoarthritis of the lumbar spine and sacroiliitis presenting with chronic low back pain. The patient reports persistent pain exacerbated by standing for periods exceeding 30 minutes. She is currently on leave from work and has been advised pain management and physical therapy. Additionally, she has a history of a recent urinary tract infection treated in August. 1. Urinary Tract Infection Previously treated in mid-August. No current signs of recurrence were discussed, but monitoring for symptoms is advised. 2. Osteoarthritis Of The Lumbar Spine Confirmed diagnosis via X-ray. The condition contributes to the patient's chronic back pain. Management includes physical therapy and corticosteroid injections. Monitoring the condition's progression and addressing flare-ups post-injection have been discussed. 3. Chronic Low Back Pain The management plan includes extending medical leave until November 08 s tarting from 09/12/2024, facilitating pain management, and potential corticosteroid injections for pain relief. The patient is advised to avoid standing for periods longer than 30 minutes. Further physical therapy is recommended to manage symptoms associated with chronic low back pain due to osteoarthritis and sacroiliitis. 4. Sacroiliitis, not elsewhere classifie d M46.1 HCC 40 The patient has been diagnosed with sacroiliitis, contributing to her lower back pain. Treatment includes pain management strategies and considering injections to alleviate inflammation and pain. Diagnostic results - X-ray: Confirmed osteoarthritis in the lower lumbar spine area. Problem List - Chronic Low Back Pain - Osteoarthritis of the Lumbar Spine - Sacroiliitis - Urinary Tract Infection [facility] Pain management and physical therapy care have been coordinated. Referral to additional healthcare providers was made for pain management. Patient Instructions - Continue current treatment plan with p ain management strategies including physical therapy. - Avoid standing for prolonged periods e xceeding 30 minutes. - Ensure follow-up for potential cortico steroid injections as scheduled. - Monitor for symptoms indicating a recu rrence of urinary tract infection and seek medical attention if necessary. - Adhere to leave of absence until Decem for recovery and management of condition. [facility] Medical History Hx of breast cancer Hx of essential hypertension Surgical History Hx of hysterectomy No pertinent past surgical history Family History Maternal Grandmother Breast cancer Sister Breast cancer Father Dementia Maternal Aunt Breast cancer Mother No problems noted. Paternal Grandmother Cancer of thyroid Brother No problems noted. Brother No problems noted. Brother No problems noted. Son No problems noted. Son No problems noted. Son No problems noted. Daughter No problems noted. 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 Sexual orientation: Straight/Heterosexual Gender identity: Female Cognitive needs: No Hearing needs: No Vision needs: Yes Questionnaire Thrive Questionnaire Date Thrive assessed: 10/19/24 I am a: Patient What is your living situation today?: I have a steady place to live Within the past 12 months, did the food you bought not last and you didn't have the money to get more?: Often true Within the past 12 months, did you worry whether your food would run out before you got money to buy more?: Never true Do you have trouble paying for medicines?: No Do you have trouble getting transportation to medical appointments?: No Do you have trouble paying your heating and electricity bill?: No Do you have trouble taking care of your child, family member or friend?: No Do you have trouble with day-to-day activities such as bathing, preparing meals, shopping, managing finances, etc.?: No Are you currently unemployed and looking for a job?: No Are you interested in more education?: No Please select the resources that you would like help with: None Currently or been in a relationship where the following occur: No concerns reported THRIVE Score: 1 AUDIT C Alcohol Use Questionnaire (AUDIT-C) 1. How often do you have a drink containing alcohol?: Never 3. How often do you have six or more drinks on one occasion?: Never Total Score: 0 Score Reviewed/Action Taken: Yes SIA-7 AMB Questionnaire SIA-7 Date SIA - 7 assessed: 10/19/24 Feeling nervous, anxious, or on edge: 0 = Not at all Not being able to stop or control worryin = Not at all Worrying too much about different things: 0 = Not at all Trouble relaxin = Not at all Being so restless that it is hard to sit still: 0 = Not at all Becoming easily annoyed or irritable: 0 = Not at all Feeling afraid as if something awful might happen: 0 = Not at all Total SIA-7 score (0-4 normal; 5-9 mild; 10-14 moderate; 15-21 severe): 0 Source: Developed by Drs. Sammy Phillips, Trinidad Peterson, Binh Hayes and colleagues, with an educational emory from [employer]. SIA-7 Assessment Billing SIA-7 Assessment Tool: SIA-7 Assessment 02896 Review of Systems Const Denies chills and Denies fever(s) ENT Denies epistaxis and Denies nasal discharge Card Denies chest pain Resp Denies chest congestion, Denies cough and Denies hemoptysis GI Denies diarrhea and Denies nausea Skin/Breast Denies rash Neuro Reports no additional complaints Psych Reports no additional complaints Endo Reports no additional complaints Physical exam (Primary Care) Vital Signs: Last Vital Signs Pulse 93 10/19/24 13:56 BP 144/82 H 10/19/24 13:56 Pulse Ox 97 10/19/24 13:56 Oxygen Delivery Method Room Air 10/19/24 13:56 BMI result Body Mass Index 33.0 Tobacco/Smoking Status: Tobacco use Status Tobacco use date assessed 10/19/24 10/19/24 14:02 Patient Tobacco Use Status Never used Tobacco 10/19/24 13:58 e-Cigarette/Vaping Use Never Used 10/19/24 13:58 Thrive Assessment: Date of Thrive Assessment Date Thrive assessed 10/19/24 10/19/24 14:02 Currently or been in a relationship where the following occur: No concerns reported Const General: cooperative, comfortable and no acute distress Orientation/consciousness: patient oriented x3 HENMT Head: Yes normocephalic Eyes General: appearance normal, both eyes and all related structures Neck Neck: Yes supple Resp Effort & Inspection: normal respiratory effort, no cough and no stridor Skin General skin exam: turgor normal Neuro General: patient oriented x3, tone normal and moves all extremities Extrem Right lower extremity: no edema Left lower extremity: no edema Coding Level of Care Code Est Pt Level 3 (26941) Diagnoses Lumbar spondylosis M47.816 Sacroiliac joint dysfunction of left side M53.3 Additional Codes SIA-7 Assessment Billing - SIA-7 Assessment Tool: SIA-7 Assessment 00187 ([id number]) Assessment & Plan Assessment & Plan (1) Lumbar spondylosis: Code(s): M47.816 - Spondylosis without myelopathy or radiculopathy, lumbar region Category: Medical (2) Sacroiliac joint dysfunction of left side: Code(s): M53.3 - Sacrococcygeal disorders, not elsewhere classified Category: Medical Plan Assessment and Plan 68-year-old female with a history of osteoarthritis of the lumbar spine and sacroiliitis presenting with chronic low back pain. The patient reports persistent pain exacerbated by standing for periods exceeding 30 minutes. She is currently on leave from work and has been advised pain management and physical therapy. Additionally, she has a history of a recent urinary tract infection treated in August. 1. Urinary Tract Infection Previously treated in mid-August. No current signs of recurrence were discussed, but monitoring for symptoms is advised. 2. Osteoarthritis Of The Lumbar Spine Confirmed diagnosis via X-ray. The condition contributes to the patient's chronic back pain. Management includes physical therapy and corticosteroid injections. Monitoring the condition's progression and addressing flare-ups post-injection have been discussed. 3. Chronic Low Back Pain The management plan includes extending medical leave until November 08, starting from 09/12/2024, facilitating pain management, and potential corticosteroid injections for pain relief. The patient is advised to avoid standing for periods longer than 30 minutes. Further physical therapy is recommended to manage symptoms associated with chronic low back pain due to osteoarthritis and sacroiliitis. 4. Sacroiliitis, not elsewhere classified M46.1 HCC 40 The patient has been diagnosed with sacroiliitis, contributing to her lower back pain. Treatment includes pain management strategies and considering injections to alleviate inflammation and pain. Diagnostic results - X-ray: Confirmed osteoarthritis in the lower lumbar spine area. Problem List - Chronic Low Back Pain - Osteoarthritis of the Lumbar Spine - Sacroiliitis - Urinary Tract Infection [facility] Pain management and physical therapy care have been coordinated. Referral to additional healthcare providers was made for pain management. Patient Instructions - Continue current treatment plan with pain management strategies including physical therapy. - Avoid standing for prolonged periods exceeding 30 minutes. - Ensure follow-up for potential corticosteroid injections as scheduled. - Monitor for symptoms indicating a recurrence of urinary tract infection and seek medical attention if necessary. - Adhere to leave of absence until November 08 for recovery and management of condition.
== END 2024-10-19 14:33 | disposition home or self-care (01) ==
PROVIDERS: PCP Internal Medicine; Visit Provider Internal Medicine
DX: M47.816 Spondylosis without myelopathy or radiculopathy, lumbar region (principal); M53.3 Sacrococcygeal disorders, not elsewhere classified

== ENCOUNTER → 2024-10-19 13:53 | Outpatient (BNVA) | payer MEDICARE, SELFPAY | PROVIDERS: PCP Internal Medicine; Visit Provider Internal Medicine | DX: M47.816 Spondylosis without myelopathy or radiculopathy, lumbar region (principal); M53.3 Sacrococcygeal disorders, not elsewhere classified | CPT/HCPCS: 96127; 99212 ==

== ENCOUNTER 2024-11-01 08:06 | Outpatient (REF) | payer MEDICARE, SELFPAY ==
[2024-11-01 12:32] LABS: Influenza A PCR NEGATIVE (Negative); Influenza B PCR NEGATIVE (Negative); Resp Syncy Virus RNA Qual PCR NEGATIVE (Negative); SARS COV2 PCR INHOUSE NEGATIVE (Negative)
== END 2024-11-01 08:07 | disposition home or self-care (01) ==
LOC: HO.LAB 08:06
PROVIDERS: Registered Nurse; PCP Internal Medicine
DX: J06.9 Acute upper respiratory infection, unspecified (principal); J02.9 Acute pharyngitis, unspecified
CPT/HCPCS: 0241U; 87880; 99212

== ENCOUNTER 2024-11-01 08:06 | Outpatient (AMB) | payer MEDICARE, SELFPAY ==
[2024-11-01 08:12] VITALS: BP 112/78; PULSE 84; TEMP 36.8; O2SAT 95
--- NOTE | 2024-11-01 08:12 | MHC.OFFWIV ---
Intake Vital Signs 11/01/24 08:12 Weight 187 lb BP 112/78 Blood Pressure Location Rt brachial Position Sitting Pulse 84 Pulse Source Pulse Oximeter Temp 98.3 F Temp Source Oral Pulse Oximetry (%) 95 Oxygen Delivery Method Room Air Intake Visit Reasons: EP-sore throat, running nose Intake Note: Patient here for cough,sneezing and sore throat that started Tuesday. Patient Tobacco Use Status: Never used Tobacco Allergies lidocaine Allergy (Intermediate, Verified 11/01/24 08:22) hives penicillin V Allergy (Intermediate, Verified 11/01/24 08:22) rash erythromycin base Allergy (Unknown, Verified 11/01/24 08:22) Rash Do you need a note to return to daycare/school/sports/work: No HPI EP-sore throat, running nose HPI Details This note is constructed using voice recognition software. While every effort has been made to ensure accuracy, lumber chain offbearer errors may have been included. The patient is a 68 year old female who presents to the clinic today with sore throat, runny nose for the past 4 days. She denies fever, chills, does have a cough, no shortness of breath, does have sputum production, thin. She reports an exposure to strep. She is concerned as her has a cardiac procedure on Tuesday and wants to make sure that she does not get him sick. [facility] Medical History Hx of breast cancer Hx of essential hypertension Surgical History Hx of hysterectomy No pertinent past surgical history Family History Maternal Grandmother Breast cancer Sister Breast cancer Father Dementia Maternal Aunt Breast cancer Mother No problems noted. Paternal Grandmother Cancer of thyroid Brother No problems noted. Brother No problems noted. Brother No problems noted. Son No problems noted. Son No problems noted. Son No problems noted. Daughter No problems noted. 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 Sexual orientation: Straight/Heterosexual Gender identity: Female Cognitive needs: No Hearing needs: No Vision needs: Yes Review of Systems Const All systems reviewed & are unremarkable except as noted in HPI and below Physical Exam Vital Signs: Last Vital Signs Temp 98.3 F 11/01/24 08:12 Pulse 84 11/01/24 08:12 BP 112/78 11/01/24 08:12 Pulse Ox 95 11/01/24 08:12 Oxygen Delivery Method Room Air 11/01/24 08:12 Const General: cooperative, healthy appearing, comfortable and no acute distress Orientation/consciousness: patient oriented x3 Limitations: no limitations HEENT Head: Yes normal to inspection Ears: hearing grossly normal bilaterally, external ears normal and TM's normal bilaterally General nose exam: Normal external nose present, Normal nares present and No nasal discharge present Face and sinus: Yes normal facial exam and Yes sinuses nontender Mouth: Normal oral and palatal mucosa present and moist mucous membranes Throat: Yes tonsils normal, Yes uvula midline and Yes posterior oropharynx abnormal (Erythema) Eyes General: appearance normal, both eyes and all related structures Neck Neck: Yes normal visual inspection Resp Effort & Inspection: normal respiratory effort, able to speak in complete sentences, Actively coughing, no respiratory distress, not tachypneic, no tripod positioning and no use of accessory muscles Auscultation: clear to auscultation bilaterally Cardio Jugular venous distension: no JVD Rate: regular rate Rhythm: regular rhythm Heart sounds: S1 normal heart sound present, S2 normal heart sound present, no click, no gallops, no murmurs and no rubs Skin General skin exam: no rashes or lesions noted, elasticity normal and turgor normal Neuro General: patient oriented x3 Extrem General: Yes normal to inspection and Yes no clubbing, cyanosis or edema Assessment & Plan Assessment & Plan (1) Upper respiratory tract infection: Code(s): J06.9 - Acute upper respiratory infection, unspecified Qualifiers: URI type: acute pharyngitis Pharyngitis/tonsillitis etiology: unspecified etiology Qualified Code(s): J02.9 - Acute pharyngitis, unspecified Plan: In office rapid strep negative. Viral swab obtained to rule out Covid, Influenza, and RSV based on symptoms. Advised mask wearing while symptomatic and quarantine per current CDC guidelines. Reviewed at home support methods including hydration, humidification, vix vapor rub, sinus rinse, and otc treatment options. Discussed treatment with antiviral therapy for covid with paxlovid and with Tamiflu for influenza, including appropriate use and side effects, and need to start medication within 5 day of symptom onset, preferably within 48 hours of symptom onset. Patient wishes to proceed tamiflu but decline paxlovid if positive. Advised follow up with worsening symptoms such as dyspnea at rest, which would require emergent evaluation. Plan See above for full details and plan. Orders: Orders SARS-CoV2/FLU/RSV Today J06.9 - Acute upper respiratory infection, unspecified Coding Level of Care Code Est Pt Level 3 (03503) Diagnoses Acute pharyngitis, unspecified etiology J02.9 URI type: acute pharyngitis Pharyngitis/tonsillitis etiology: unspecified etiology
== END 2024-11-01 09:06 | disposition home or self-care (01) ==
PROVIDERS: PCP Internal Medicine; Visit Provider Registered Nurse
DX: J02.9 Acute pharyngitis, unspecified (principal); Z13.9 Encounter for screening, unspecified

== ENCOUNTER 2024-11-13 09:00 | Outpatient (RCR) | payer MEDICARE, SELFPAY ==
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
--- NOTE | 2024-11-13 09:48 | MHC.PT.DC ---
[facility] [place] Office [place] Office [place] Office [address] Morgan Gomez [address] [phone] F: [phone] F: [phone] F: [phone] F: [phone] Physical Therapy Discharge Report Diagnosis: LBP, SI joint pain Date of Surgery: n/a Date of Evaluation: 09/25/24 Date of Discharge: 11/13/24 Treatments to Date: 7 Cancellations to Date: 1 No Shows to Date: 0 Discharge Status: Independent with HEP Patient Elected to Stop Recommend MD Follow-up Discharge Summary: 11/13/2024: Pt continues to have pain on and off. She is scheduled to have injections at the end of next month. She feels some improvements since starting PT but this has not carried over functionally nor has it stayed consistent. She would like to be d/c from skilled PT as she is getting the injections. I feel this is reasonable as we have likely maximized PT at this point. She knows to continue with HEP at home. Electronically signed by: Gita Jules, PT, DPT, ATC Please sign and return to therapist. Thank you for your referral.
== END 2024-11-13 09:48 | disposition home or self-care (01) ==
LOC: HO.PTCHIC 09:00
PROVIDERS: PCP Internal Medicine; Visit Provider Internal Medicine
DX: M54.42 Lumbago with sciatica, left side (principal); M53.3 Sacrococcygeal disorders, not elsewhere classified
CPT/HCPCS: 97110; 97161

== ENCOUNTER 2024-12-05 09:13 | Outpatient (AMB) | payer MEDICARE, SELFPAY ==
[2024-12-05 09:15] VITALS: BP 124/78; PULSE 89; O2SAT 98; BMI 33.2
--- NOTE | 2024-12-05 09:15 | A.OFFPC_ITS ---
Vital Signs 12/05/24 09:15 Height 5 ft 3 in Weight 187 lb 6 oz BMI 33.2 BP 124/78 Blood Pressure Location Rt brachial Position Sitting Pulse 89 Pulse Source Pulse Oximeter Pulse Oximetry (%) 98 Oxygen Delivery Method Room Air Intake Visit Reasons: Papperwork / F/U Allergies lidocaine Allergy (Intermediate, Verified 12/05/24 09:15) hives penicillin V Allergy (Intermediate, Verified 12/05/24 09:15) rash erythromycin base Allergy (Unknown, Verified 12/05/24 09:15) Rash Medication List - Last Reconciled 12/05/24 by Shane Santos MD losartan 50 mg PO DAILY [shower mat As directed] Tobacco use date assessed: 12/05/24 Fall risk assessment: No Falls in past year Last assessed Fall Risk: 12/05/24 Dental Screening Dental Screen Date: 12/05/24 Did you have a dental visit in the last 12 months?: Yes Did you have a dental problem in the last 6 months where you did not have access to dental care?: No Was dental information given to patient?: Patient has dentist HPI Papperwork / F/U HPI Details - The patient is a 69-year-old female pr esenting with chronic back pain. Presented for paperwork filled for work until she gets back injections done through pain management [facility] Paperwork filled till January 15 2025 - Onset of issues noted with sacroiliac joint dysfunction on the left side and sacrococcygeal disorder, affecting mobility and comfort. - Diagnosed on October 10, patient fo llowed a physical therapy regimen until early this month with ongoing pain. 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 - Pain exacerbated in certain weather co nditions; inability to stand for more than five minutes at times. - Pain management plan includes a trial injection scheduled for December 11, with documentation via a pain management diary. - Patient works part-time - Scheduled for cataract surgeries start ing January 14 which may affect recovery timelines. Problem List - Sacroiliac joint dysfunction, left janelle e - Sacrococcygeal disorder - Spondylosis without myelopathy or radi culopathy, lumbar region Patient Instructions - Maintain a pain management diary to tr ack severity and frequency of episodes. - Prepare for initial trial injection on December 11. - Plan for reduced physical activities, especially during severe weather conditions. - Follow up on cataract surgery appointm ents and ensure medical release is obtained for each eye surgery. - Be mindful of posture and sitting posi tions to alleviate discomfort as much as possible. - For necessary rest periods, avoid hard seating surfaces. Review of Systems - Musculoskeletal: Reports severe diffic ulty standing due to back pain. - Neurological: Reports incapacity to st and for extended periods due to pain. - General: No fever no chills - Ear nose throat: No sore throat no hearing difficulty no ear pain - Cardiovascular: No syncope, no chest pain, no palpitations - Gastrointestinal: No nausea vomiting or diarrhea - Endocrine: No polyuria polydipsia no heat intolerance - Genitourinary: No dysuria , no blood in urine Physical Exam - General: No acute distress - HEENT: No acute findings - Neck: Supple - Respiratory system: Able to talk in f ull sentences, no audible wheeze - cardiovascular: S1-S2 regular in rat e and rhythm - Gastrointestinal: No pain - Extremities: No new findings - GUEST ATTENDANT: Alert awake oriented x3 motor se nsory intact - Skin: Normal turgor PFSH Medical History Hx of breast cancer Hx of essential hypertension Surgical History Hx of hysterectomy No pertinent past surgical history Family History Maternal Grandmother Breast cancer Sister Breast cancer Father Dementia Maternal Aunt Breast cancer Mother No problems noted. Paternal Grandmother Cancer of thyroid Brother No problems noted. Brother No problems noted. Brother No problems noted. Son No problems noted. Son No problems noted. Son No problems noted. Daughter No problems noted. 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 1. Little interest or pleasure in doing things: not at all 2. Feeling down, depressed, or hopeless: not at all 3. Trouble falling or staying asleep, or sleeping too much: not at all 4. Feeling tired or having little energy: not at all 5. Poor appetite or overeating: not at all 6. Feeling bad about yourself - or that you are a failure or have let yourself or your family down: not at all 7. Trouble concentrating on things, such as reading the newspaper or watching television: not at all 8. Moving or speaking so slowly that other people could have noticed. Or the opposite - being so fidgety or restless that you have been moving around a lot more than usual: not at all 9. Thoughts that you would be better off or of hurting yourself in some way: not at all Total score: 0 Depression Screening Interpretation: Negative Depression Screening Done: Yes 05162 - PHQ-9 Billing: Yes Source: Developed by Drs. Sammy Phillips, Trinidad Peterson, Binh Hayes and colleagues, with an educational emory from [employer]. Thrive Questionnaire Date Thrive assessed: 12/05/24 I am a: Patient What is your living situation today?: I have a steady place to live Within the past 12 months, did the food you bought not last and you didn't have the money to get more?: Often true Within the past 12 months, did you worry whether your food would run out before you got money to buy more?: Never true Do you have trouble paying for medicines?: No Do you have trouble getting transportation to medical appointments?: No Do you have trouble paying your heating and electricity bill?: No Do you have trouble taking care of your child, family member or friend?: No Do you have trouble with day-to-day activities such as bathing, preparing meals, shopping, managing finances, etc.?: No Are you currently unemployed and looking for a job?: No Are you interested in more education?: No Please select the resources that you would like help with: None Currently or been in a relationship where the following occur: No concerns reported THRIVE Score: 1 AUDIT C Alcohol Use Questionnaire (AUDIT-C) 1. How often do you have a drink containing alcohol?: Never 3. How often do you have six or more drinks on one occasion?: Never Total Score: 0 Score Reviewed/Action Taken: Yes SIA-7 AMB Questionnaire SIA-7 Date SIA - 7 assessed: 12/05/24 Feeling nervous, anxious, or on edge: 0 = Not at all Not being able to stop or control worryin = Not at all Worrying too much about different things: 0 = Not at all Trouble relaxin = Not at all Being so restless that it is hard to sit still: 0 = Not at all Becoming easily annoyed or irritable: 0 = Not at all Feeling afraid as if something awful might happen: 0 = Not at all Total SIA-7 score (0-4 normal; 5-9 mild; 10-14 moderate; 15-21 severe): 0 Source: Developed by Drs. Sammy Phillips, Trinidad Peterson, iBnh Hayes and colleagues, with an educational emory from [employer]. SIA-7 Assessment Billing SIA-7 Assessment Tool: SIA-7 Assessment 96616 Physical exam (Primary Care) Vital Signs: Last Vital Signs Pulse 89 12/05/24 09:15 BP 124/78 12/05/24 09:15 Pulse Ox 98 12/05/24 09:15 Oxygen Delivery Method Room Air 12/05/24 09:15 BMI result Body Mass Index 33.2 Tobacco/Smoking Status: Tobacco use Status Tobacco use date assessed 12/05/24 12/05/24 09:20 Patient Tobacco Use Status Never used Tobacco 12/05/24 09:20 e-Cigarette/Vaping Use Never Used 12/05/24 09:20 PHQ-9: PHQ-9 Score PHQ-9: Total score 0 12/05/24 13:27 Depression Screening Interpretation: Negative Thrive Assessment: Date of Thrive Assessment Date Thrive assessed 12/05/24 12/05/24 09:20 Currently or been in a relationship where the following occur: No concerns reported Coding Level of Care Code Est Pt Level 3 (22765) Diagnoses Lumbar spondylosis M47.816 Sacroiliac joint dysfunction of left side M53.3 Additional Codes SIA-7 Assessment Billing - SIA-7 Assessment Tool: SIA-7 Assessment 09652 ([id number]) PHQ-9 - 77566 - PHQ-9 Billing: Yes ([id number]) Assessment & Plan Assessment & Plan (1) Lumbar spondylosis: Code(s): M47.816 - Spondylosis without myelopathy or radiculopathy, lumbar region Category: Medical (2) Sacroiliac joint dysfunction of left side: Code(s): M53.3 - Sacrococcygeal disorders, not elsewhere classified Category: Medical Plan - The patient is a 69-year-old female presenting with chronic back pain. Presented for paperwork filled for work until she gets back injections done through pain management [facility] Paperwork filled till January 15 2025 - Onset of issues noted with sacroiliac joint dysfunction on the left side and sacrococcygeal disorder, affecting mobility and comfort. - Diagnosed on October 10, patient followed a physical therapy regimen until early this month with ongoing pain. - Additional diagnosis of lumbar spondylosis without myelopathy or radiculopathy. - Pain exacerbated in certain weather conditions; inability to stand for more than five minutes at times. - Pain management plan includes a trial injection scheduled for December 11, with documentation via a pain management diary. - Patient works part-time - Scheduled for cataract surgeries starting January 14 which may affect recovery timelines. Problem List - Sacroiliac joint dysfunction, left side - Sacrococcygeal disorder - Spondylosis without myelopathy or radiculopathy, lumbar region Patient Instructions - Maintain a pain management diary to track severity and frequency of episodes. - Prepare for initial trial injection on December 11. - Plan for reduced physical activities, especially during severe weather conditions. - Follow up on cataract surgery appointments and ensure medical release is obtained for each eye surgery. - Be mindful of posture and sitting positions to alleviate discomfort as much as possible. - For necessary rest periods, avoid hard seating surfaces.
== END 2024-12-05 10:07 | disposition home or self-care (01) ==
PROVIDERS: PCP Internal Medicine; Visit Provider Internal Medicine
DX: M47.816 Spondylosis without myelopathy or radiculopathy, lumbar region (principal); M53.3 Sacrococcygeal disorders, not elsewhere classified

== ENCOUNTER → 2024-12-05 09:13 | Outpatient (BNVA) | payer MEDICARE, SELFPAY | PROVIDERS: PCP Internal Medicine; Visit Provider Internal Medicine | DX: M47.816 Spondylosis without myelopathy or radiculopathy, lumbar region (principal); M53.3 Sacrococcygeal disorders, not elsewhere classified | CPT/HCPCS: 96127; 99212 ==

== ENCOUNTER 2024-12-11 06:38 | Outpatient (REF) | payer MEDICARE, SELFPAY ==
--- NOTE | ~2024-12-11 | FL_ITS ---
EXAMINATION: FL GUIDANCE ONLY HISTORY: M53.3 - Sacrococcygeal disorders, not elsewhere classified COMPARISON: None available. TECHNIQUE: Fluoroscopy time: Less than 0.1 minutes. Cumulative Dose: 2.92 mGy. DAP: 0.0507 uGy-m2 (microgray-meter squared). Images: 1. FINDINGS: A single fluoroscopic spot film demonstrates a needle and contrast in the region of the left sacroiliac joint. FL/FL guidance in treatment room IMPRESSION: Fluoroscopy during procedure. Please see procedure report for additional information. Electronically signed by: aSmmy Abarca MD 12/12/2024 07:42 AM [facility]
== END 2024-12-11 06:39 | disposition home or self-care (01) ==
LOC: CF 06:38
PROVIDERS: Visit Provider Anesthesiology
DX: M53.3 Sacrococcygeal disorders, not elsewhere classified (principal)
CPT/HCPCS: 27096; J2401; Q9967

== ENCOUNTER 2024-12-11 14:14 | Outpatient (AMB) | payer MEDICARE, SELFPAY ==
[2024-12-11 14:22] VITALS: BP 132/82; PULSE 81; RESP 16; O2SAT 95
--- NOTE | 2024-12-11 14:22 | A.OFFVIS_ITS ---
Vital Signs 12/11/24 14:22 12/11/24 15:07 BP 132/82 142/82 H Blood Pressure Location Lt brachial Lt brachial Position Sitting Sitting Respiration 16 16 Pulse 81 81 Pulse Source Pulse Oximeter Pulse Oximeter Pulse Oximetry (%) 95 95 Oxygen Delivery Method Room Air Room Air Intake Visit Reasons: LEFT DIAGNOSTIC SIJ INJECTION/LIDOCAINE ALLERGY Allergies lidocaine Allergy (Intermediate, Verified 12/14/24 10:52) hives penicillin V Allergy (Intermediate, Verified 12/14/24 10:52) rash erythromycin base Allergy (Unknown, Verified 12/14/24 10:52) Rash Medication List - Last Reconciled 12/11/24 by Ritu Glaser LPN losartan 50 mg PO DAILY [shower mat As directed] PFSH Medical History Hx of breast cancer Hx of essential hypertension Surgical History Hx of hysterectomy No pertinent past surgical history Family History Maternal Grandmother Breast cancer Sister Breast cancer Father Dementia Maternal Aunt Breast cancer Mother No problems noted. Paternal Grandmother Cancer of thyroid Brother No problems noted. Brother No problems noted. Brother No problems noted. Son No problems noted. Son No problems noted. Son No problems noted. Daughter No problems noted. 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 Informed consent was thoroughly explained to the patient before the procedure.? The patient came to the operating room.? She was positioned prone on operating table with a pillow under her abdomen.? Time-out was performed delineating correct site and side of the procedure, nature of the injection, name and date of of the patient. The lower back and upper buttocks of the patient was prepped with ChloraPrep and draped with sterile utility towels.? C-arm was brought over the operating field and picture of left sacroiliac joint was demonstrated on the screen. Tilting machine contralateral right 15 degrees from the midline the anterior portion of the silhouette of the joint was superimposed on posterior portion of the silhouette of the joint. The skin was anesthetized with Chlorprocaine slightly medial to the silhouette of the sacroiliac joint. 22 gauge 3-1/2 inch spinal needle was inserted through the skin wheal and advanced to the sacroiliac joint. When tip of the needle entered the sacroiliac joint injection of the contrast performed delineating arthrogram. After that 2 mL of tetracaine 1% mixed with Chlorprocaine 2% was injected into the joint. Upon completion of the injection needle was removed and the procedure was repeated on the left side in the mirroring fashion. After the injection the needle was removed and sterile bandades were applied Patient tolerated the procedure well. Orders: Orders FL guidance in treatment room 12/11/24 M53.3 - Sacrococcygeal disorders, not elsewhere classified Coding Level of Care Code Procedure Only Diagnoses Sacroiliac joint dysfunction of left side M53.3
[2024-12-11 15:07] VITALS: BP 142/82; PULSE 81; RESP 16; O2SAT 95
== END 2024-12-11 15:07 | disposition home or self-care (01) ==
LOC: HO.PMCPRC 14:14
PROVIDERS: PCP Internal Medicine; Visit Provider Anesthesiology
DX: M53.3 Sacrococcygeal disorders, not elsewhere classified (principal)
CPT/HCPCS: 27096

== ENCOUNTER 2024-12-14 10:45 | Outpatient (AMB) | payer MEDICARE, SELFPAY ==
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
[2024-12-14 10:51] VITALS: BP 158/74; PULSE 94; BMI 32.8
== END 2024-12-14 11:31 | disposition home or self-care (01) ==
PROVIDERS: PCP Internal Medicine; Visit Provider Registered Nurse Emergency
DX: M53.3 Sacrococcygeal disorders, not elsewhere classified (principal); M47.816 Spondylosis without myelopathy or radiculopathy, lumbar region
CPT/HCPCS: 99213; G2211

== ENCOUNTER → 2024-12-14 10:45 | Outpatient (BNVA) | payer MEDICARE, SELFPAY | PROVIDERS: PCP Internal Medicine; Visit Provider Registered Nurse Emergency | DX: M53.3 Sacrococcygeal disorders, not elsewhere classified (principal); M47.816 Spondylosis without myelopathy or radiculopathy, lumbar region | CPT/HCPCS: 99212 ==

== ENCOUNTER 2025-01-08 13:49 | Outpatient (AMB) | payer MEDICARE, SELFPAY ==
[2025-01-08 13:54] VITALS: BP 124/86; PULSE 95; RESP 20; TEMP 36.8; O2SAT 97; BMI 33.5
--- NOTE | 2025-01-08 13:54 | A.OFFPC_ITS ---
Vital Signs 01/08/25 13:54 Height 5 ft 3 in Weight 189 lb BMI 33.5 BP 124/86 Blood Pressure Location Lt brachial Position Sitting Respiration 20 Pulse 95 Pulse Source Pulse Oximeter Temp 98.3 F Temp Source Oral Pulse Oximetry (%) 97 Intake Visit Reasons: Pre-OP Intake Note: Pt is here today for a pre op visit. Pt is having cataract surgery on 01/14/25 and 01/28/[address] Christianson. Allergies lidocaine Allergy (Intermediate, Verified 01/08/25 14:00) hives penicillin V Allergy (Intermediate, Verified 01/08/25 14:00) rash erythromycin base Allergy (Unknown, Verified 01/08/25 14:00) Rash Medication List - Last Reconciled 01/08/25 by Shane Santos MD losartan 50 mg PO DAILY [shower mat As directed] Tobacco use date assessed: 01/08/25 Fall risk assessment: No Falls in past year Last assessed Fall Risk: 01/08/25 Dental Screening Dental Screen Date: 12/05/24 HPI Pre-OP HPI Details Chief Complaint Pre-operative assessment and medication refill request. History - The patient is a 69-year-old female pr esenting for a pre-operative evaluation for cataract surgery and medication management. The cataract surgery is scheduled for the right eye on January 14 and the left eye on January 28, to be performed at [facility] by Dr. Rahman. - The patient's essential hypertension i s currently well-managed with losartan 50 mg. The most recent blood pressure was satisfactory, indicating effective control under current medication. - She requested a refill for a dermal cr eam for her fingers and hands Problem List - Essential Hypertension - Lumbar Pain - Cataract Plan Pre-operative preparation for cataract surgeries is underway with lab testing scheduled. The patient?s essential hypertension is effectively managed with losartan 50 mg. Medical Decision Making The primary goal is successful pre-operative management for the forthcoming cataract surgeries, ensuring all laboratory work and documentation are complete. Hypertension is under control with current medication, necessitating no changes. Patient is stable for cataract surgery [facility] Medical History Hx of breast cancer Hx of essential hypertension Surgical History Hx of hysterectomy No pertinent past surgical history Family History Maternal Grandmother Breast cancer Sister Breast cancer Father Dementia Maternal Aunt Breast cancer Mother No problems noted. Paternal Grandmother Cancer of thyroid Brother No problems noted. Brother No problems noted. Brother No problems noted. Son No problems noted. Son No problems noted. Son No problems noted. Daughter No problems noted. 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 How often do you have a drink containing alcohol?: Never 3. How often do you have six or more drinks on one occasion?: Never Total Score: 0 SIA-7 AMB Questionnaire SIA-7 Date SIA - 7 assessed: 12/05/24 Source: Developed by Drs. Sammy Phillips, Trinidad Peterson, Binh Hayes and colleagues, with an educational emory from [employer]. Review of Systems Const Denies chills and Denies fever(s) ENT Denies epistaxis and Denies nasal discharge Card Denies chest pain Resp Denies chest congestion, Denies cough and Denies hemoptysis GI Denies diarrhea and Denies nausea Skin/Breast Denies rash Neuro Reports no additional complaints Psych Reports no additional complaints Endo Reports no additional complaints Physical exam (Primary Care) Vital Signs: Last Vital Signs Temp 98.3 F 01/08/25 13:54 Pulse 95 01/08/25 13:54 Resp 20 01/08/25 13:54 BP 124/86 01/08/25 13:54 Pulse Ox 97 01/08/25 13:54 BMI result Body Mass Index 33.5 Tobacco/Smoking Status: Tobacco use Status Tobacco use date assessed 01/08/25 01/08/25 13:55 Patient Tobacco Use Status Never used Tobacco 01/08/25 13:55 e-Cigarette/Vaping Use Never Used 01/08/25 13:55 Thrive Assessment: Date of Thrive Assessment Date Thrive assessed 12/05/24 01/08/25 13:55 Const General: cooperative, comfortable and no acute distress Orientation/consciousness: patient oriented x3 HENMT Head: Yes normocephalic Eyes General: appearance normal, both eyes and all related structures Neck Neck: Yes supple Resp Effort & Inspection: normal respiratory effort, no cough and no stridor Cardio Rhythm: regular rhythm Heart sounds: S1 normal heart sound present and S2 normal heart sound present Skin General skin exam: turgor normal Neuro General: patient oriented x3, tone normal and moves all extremities Extrem Right lower extremity: no edema Left lower extremity: no edema Coding Level of Care Code Est Pt Level 4 (26463) Diagnoses Pre-op evaluation Z01.818 Age-related cataract of both eyes, unspecified age-related cataract type H25.9 Cataract type: age-related Age-related cataract type: unspecified Laterality: bilateral Hypertension, essential I10 Assessment & Plan Assessment & Plan (1) Pre-op evaluation: Code(s): Z01.818 - Encounter for other preprocedural examination Category: Medical (2) Cataract: Code(s): H26.9 - Unspecified cataract Category: Medical Qualifiers: Cataract type: age-related Age-related cataract type: unspecified Laterality: bilateral Qualified Code(s): H25.9 - Unspecified age-related cataract (3) Hypertension, essential: Code(s): I10 - Essential (primary) hypertension Category: Medical Plan Chief Complaint Pre-operative assessment and medication refill request. History - The patient is a 69-year-old female presenting for a pre-operative evaluation for cataract surgery and medication management. The cataract surgery is scheduled for the right eye on January 14 and the left eye on January 28, to be performed at [facility] by Dr. Rahman. - The patient's essential hypertension is currently well-managed with losartan 50 mg. The most recent blood pressure was satisfactory, indicating effective control under current medication. - She requested a refill for a dermal cream for her fingers and hands Problem List - Essential Hypertension - Lumbar Pain - Cataract Plan Pre-operative preparation for cataract surgeries is underway with lab testing scheduled. The patient?s essential hypertension is effectively managed with losartan 50 mg. Medical Decision Making The primary goal is successful pre-operative management for the forthcoming cataract surgeries, ensuring all laboratory work and documentation are complete. Hypertension is under control with current medication, necessitating no changes. Patient is stable for cataract surgery Orders: Orders Complete Blood Count Auto Diff Today I10 - Essential (primary) hypertension Comprehensive Met. Panel Today I10 - Essential (primary) hypertension LDL Cholesterol Direct Today I10 - Essential (primary) hypertension Medications: Refilled triamcinolone acetonide 0.1% small amount topical daily; 30 days 15 grams 2RF
== END 2025-01-08 14:17 | disposition home or self-care (01) ==
PROVIDERS: PCP Internal Medicine; Visit Provider Internal Medicine
DX: Z01.818 Encounter for other preprocedural examination (principal); H25.9 Unspecified age-related cataract; I10 Essential (primary) hypertension

== ENCOUNTER → 2025-01-08 13:49 | Outpatient (BNVA) | payer MEDICARE, SELFPAY | PROVIDERS: PCP Internal Medicine; Visit Provider Internal Medicine | DX: Z01.818 Encounter for other preprocedural examination (principal); H25.9 Unspecified age-related cataract; I10 Essential (primary) hypertension | CPT/HCPCS: 99212 ==

== ENCOUNTER 2025-01-09 08:05 | Outpatient (REF) | payer MEDICARE, SELFPAY ==
[2025-01-09 09:51] LABS: MANUAL DIFF FLAG NO
[2025-01-09 09:53] LABS: Basophils Percent Auto 0.5 % (0-2); Eosinophils Absolute Auto 0.2 X10*3/uL (0.0-0.4); Eosinophils Percent Auto 3.1 % (0-4); Hematocrit 41.6 % (37.0-47.0); Hemoglobin 13.5 g/dl (12.0-16.0); Imm Gran Abs Auto 0.03 X10*3/uL (0.00-0.03); Imm Gran Pct Auto 0.5 % (0.0-0.4); Lymphocytes Absolute Auto 1.6 X10*3/uL (1.2-4.9); Lymphocytes Percent Auto 24.5 % (20-40); Mean Corpuscular HGB Conc 32.5 g/dl (31.0-35.0); Mean Corpuscular Hemoglobin 32.1 pg (27.0-33.0); Mean Corpuscular Volume 98.8 fL (80.0-98.0); Mean Platelet Volume 11.3 fL (9.4-12.3); Monocytes Absolute Auto 0.8 X10*3/uL (0.1-1.2); Monocytes Percent Auto 12.3 % (2-11); Neutrophils Absolute Auto 3.9 x10*3/uL (2.0-8.3); Neutrophils Percent Auto 59.1 % (45-73); Platelet Count 267 X10*3/uL (160-400); Red Blood Count 4.21 X10*6/uL (4.20-5.50); Red Cell Distribution Width 13.3 % (11.0-16.0); White Blood Count 6.5 X10*3/uL (4.8-10.8)
[2025-01-09 10:21] LABS: Alanine Aminotransferase 36 U/L (0-31); Albumin Level 3.8 g/dL (3.5-5.0); Alkaline Phosphatase 108 U/L (39-117); Anion Gap 11 (12-20); Aspartate Amino Transferase 38 U/L (5-31); Bilirubin Total 0.6 mg/dL (0.0-1.0); Blood Urea Nitrogen 7 mg/dL (9-16); Calcium 8.9 mg/dL (8.4-10.2); Carbon Dioxide 24 mmol/L (22-29); Chloride 106 mmol/L (96-108); Estimated Glomerular Filt Rate > 60; Glucose Random 94 mg/dL (60-115); Potassium 4.2 mmol/L (3.3-5.1); Sodium 137 mmol/L (135-145); Total Protein 7.2 g/dL (6.5-8.0)
[2025-01-10 08:34] LABS: LDL Cholesterol Direct 58 mg/dL (<100)
== END 2025-01-09 08:06 | disposition home or self-care (01) ==
LOC: HO.HMGCLDS 08:05
PROVIDERS: PCP Internal Medicine; Visit Provider Internal Medicine
DX: I10 Essential (primary) hypertension (principal)
CPT/HCPCS: 36415; 80053; 83721; 85025

== ENCOUNTER 2025-01-14 06:54 | Day surgery (SDC) | payer MEDICARE, SELFPAY ==
[2025-01-09 12:46] VITALS: BMI 33.5
--- NOTE | 2025-01-10 15:19 | HO.ANESPROP2 ---
Documented by User: Tracy Bran NP 01/10/25 15:19 HPI - Anesthesia Eval Consult details Narrative: 69yo F for Right Cataract Extraction IOL Insertion No previous cataract on record PMF Active Problems Active Problems: All Active Problems Cataract (Acute) Pre-op evaluation (Acute) Lumbar spondylosis (Acute) Sacroiliac joint dysfunction of left side (Acute) Hip pain, left (Acute) Sacroiliac joint pain (Acute) Lower back pain (Acute) Rotator cuff tear, right (Acute) Annual physical exam (Acute) Foot pain, bilateral (Acute) Sprain of right thumb (Acute) Fracture of greater tuberosity of right humerus (Acute) Acute pharyngitis (Acute) Upper respiratory tract infection (Acute) Sunburn of first degree (Acute) Obesity due to excess calories (Acute) Anemia (Acute) History of nephrolithiasis (Acute) Blood in urine (Acute) Dysuria (Acute) Return to work evaluation (Acute) UTI (urinary tract infection) (Acute) Diverticulosis (Acute) Anemia due to blood loss (Acute) GI bleed (Acute) Postmenopausal bleeding (Acute) Abrasion (Acute) Cystocele with uterine prolapse (Acute) Intestinal disorder (Acute) Abdominal discomfort in left lower quadrant (Acute) Hospital discharge follow-up (Acute) Bladder prolapse (Acute) Nephrolithiasis (Acute) Ileus (Acute) Abdominal pain, right lower quadrant (Acute) Kidney stones (Acute) Eczema (Acute) Hypertension, essential (Acute) Hx of breast cancer (Acute) Past Medical History Medical History Arthritis Cataracts, bilateral Hx of essential hypertension Family History Family History Maternal Grandmother Breast cancer Sister Breast cancer Father Dementia Maternal Aunt Breast cancer Mother No problems noted. Paternal Grandmother Cancer of thyroid Brother No problems noted. Brother No problems noted. Brother No problems noted. Son No problems noted. Son No problems noted. Son No problems noted. Daughter No problems noted. 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 Sexual orientation: Straight/Heterosexual Gender identity: Female Cognitive needs: No Hearing needs: No Vision needs: Yes Meds Allergies Allergy/AdvReac Type Severity Reaction Status Date / Time lidocaine Allergy Intermediate hives Verified 01/08/25 14:00 penicillin V Allergy Intermediate rash Verified 01/08/25 14:00 erythromycin base Allergy Unknown Rash Verified 01/08/25 14:00 Exam Height,Weight and Vital Signs: Height 5 ft 3 in Weight 85.729 kg Assessment and Plan Assessment Anesthesia Assessment: Chart Reviewed Documented by User: Yudy Glasgow MD 01/14/25 08:59 PMFSH Past Medical History Medical History Arthritis Cataracts, bilateral Hx of essential hypertension Family History Family History Maternal Grandmother Breast cancer Sister Breast cancer Father Dementia Maternal Aunt Breast cancer Mother No problems noted. Paternal Grandmother Cancer of thyroid Brother No problems noted. Brother No problems noted. Brother No problems noted. Son No problems noted. Son No problems noted. Son No problems noted. Daughter No problems noted. Maternal Grandfather Mental health disorder Family history of problems with anesthesia: No Surgical History Surgical History History of dental surgery Hx of hysterectomy History of Problems with Anesthesia: No Social History Social History Housing: Apartment Alcohol intake: never Patient Tobacco Use Status: Never used Tobacco e-Cigarette/Vaping Use: Never Used Second Hand Smoke Exposure: Yes Use of substances other than those prescribed or required for medical reasons: No Are you DNR?: No Advance Directives: No Advance Directives Information Provided: Yes Patient : No service: No Current occupational status: employed 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, 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 Sexual orientation: Straight/Heterosexual Gender identity: Female Cognitive needs: No Hearing needs: No Vision needs: Yes Meds Allergies Allergy/AdvReac Type Severity Reaction Status Date / Time lidocaine Allergy Intermediate hives Verified 01/08/25 14:00 penicillin V Allergy Intermediate rash Verified 01/08/25 14:00 erythromycin base Allergy Unknown Rash Verified 01/08/25 14:00 Exam Airway Mallampati Class: II TM Dist: >3cm Neck ROM: Full Partial: Upper and Lower Heart: rrr Lungs: cta Assessment and Plan Assessment Anesthesia Assessment: Anesthesia Plan Discussed Final Anesthetic Review Family History of Problems with Anesthesia: No History of Problems with Anesthesia: No NPO: Yes ASA Class: III Final Preanesthetic Review: No Changes in Pt Med Stat, Meds/Allgs Chart Reviewed and Consent Obtained/Reviewed Patient Risk: Low Procedure Risk: Low Anesthetic Plan Anesthetic Plan: MAC: Disposition: Standard PACU
[2025-01-14 07:50] VITALS: BP 129/67; PULSE 92; RESP 15; TEMP 36.6; O2SAT 97
[2025-01-14] MEDS: Tetracaine HCl/PF 0.5% Oph Sol 4 ML DROPS 1 DROP EYE-RIGHT (07:51)
[2025-01-14] MEDS: Cyclopentolate 1 % Ophth Sol 2 ML DRPBTL 1 DROP EYE-RIGHT ×3 (07:54→08:04)
[2025-01-14] MEDS: Tropicamide 1 % Ophth Sol 3 ML BTL 1 DROP EYE-RIGHT ×3 (07:55→08:05)
[2025-01-14] MEDS: Ketorolac Tromethamine 0.5% Op 5 ML DROPS 1 DROP EYE-RIGHT ×3 (07:56→08:06)
[2025-01-14] MEDS: Phenylephrine HCL 2.5% Oph SoL 2 ML BOTTLE 1 DROP EYE-RIGHT ×3 (07:57→08:07)
[2025-01-14] MEDS: Lactated Ringers 500 ML 50 ML IV (08:03)
--- NOTE | 2025-01-14 08:34 | P.CONAN_ITS ---
[facility] Active Problems Active Problems: All Active Problems Cataract (Acute) Pre-op evaluation (Acute) Lumbar spondylosis (Acute) Sacroiliac joint dysfunction of left side (Acute) Hip pain, left (Acute) Sacroiliac joint pain (Acute) Lower back pain (Acute) Rotator cuff tear, right (Acute) Annual physical exam (Acute) Foot pain, bilateral (Acute) Sprain of right thumb (Acute) Fracture of greater tuberosity of right humerus (Acute) Acute pharyngitis (Acute) Upper respiratory tract infection (Acute) Sunburn of first degree (Acute) Obesity due to excess calories (Acute) Anemia (Acute) History of nephrolithiasis (Acute) Blood in urine (Acute) Dysuria (Acute) Return to work evaluation (Acute) UTI (urinary tract infection) (Acute) Diverticulosis (Acute) Anemia due to blood loss (Acute) GI bleed (Acute) Postmenopausal bleeding (Acute) Abrasion (Acute) Cystocele with uterine prolapse (Acute) Intestinal disorder (Acute) Abdominal discomfort in left lower quadrant (Acute) Hospital discharge follow-up (Acute) Bladder prolapse (Acute) Nephrolithiasis (Acute) Ileus (Acute) Abdominal pain, right lower quadrant (Acute) Kidney stones (Acute) Eczema (Acute) Hypertension, essential (Acute) Hx of breast cancer (Acute) Past Medical History Medical History Arthritis Cataracts, bilateral Hx of essential hypertension Functional capacity: independent ambulation Patient : No Family History Family History Maternal Grandmother Breast cancer Sister Breast cancer Father Dementia Maternal Aunt Breast cancer Mother No problems noted. Paternal Grandmother Cancer of thyroid Brother No problems noted. Brother No problems noted. Brother No problems noted. Son No problems noted. Son No problems noted. Son No problems noted. Daughter No problems noted. Maternal Grandfather Mental health disorder Family history of problems with anesthesia: No Surgical History Surgical History History of dental surgery Hx of hysterectomy History of Problems with Anesthesia: No Social History Social History Housing: Apartment Alcohol intake: never Patient Tobacco Use Status: Never used Tobacco e-Cigarette/Vaping Use: Never Used Second Hand Smoke Exposure: Yes Use of substances other than those prescribed or required for medical reasons: No Are you DNR?: No Advance Directives: No Advance Directives Information Provided: Yes service: No Current occupational status: employed 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, 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 Sexual orientation: Straight/Heterosexual Gender identity: Female Cognitive needs: No Hearing needs: No Vision needs: Yes Meds Allergies Allergy/AdvReac Type Severity Reaction Status Date / Time lidocaine Allergy Intermediate hives Verified 01/08/25 14:00 penicillin V Allergy Intermediate rash Verified 01/08/25 14:00 erythromycin base Allergy Unknown Rash Verified 01/08/25 14:00 Active Medications: Current Medications Lactated Ringer's (Lr) 500 mls @ 50 mls/hr IV .Q10H SAMMY Stop: 01/14/25 17:29 Last Admin: 01/14/25 08:03 Dose: 50 mls/hr Povidone Iodine (Povidone Iodine 5 % Ophth Soln 30 Ml Bottle) 1 appl EYE-RIGHT PREOP PRN PRN Reason: Pre-Op Surgical Implant Prophy Exam Height,Weight and Vital Signs: Height 5 ft 3 in Weight 85.729 kg Last Vital Signs Temp 97.9 F 01/14/25 07:50 Pulse 92 01/14/25 07:50 Resp 15 01/14/25 07:50 BP 129/67 01/14/25 07:50 Pulse Ox 97 01/14/25 07:50 O2 Del Method Room Air 01/14/25 07:50 Airway Mallampati Class: II TM Dist: >3cm Neck ROM: Full Heart: RRR Lungs: CTA Assessment and Plan Assessment Anesthesia Assessment: Anesthesia Plan Discussed and Chart Reviewed Final Anesthetic Review Family History of Problems with Anesthesia: No History of Problems with Anesthesia: No NPO: Yes ASA Class: II Final Preanesthetic Review: Meds/Allgs Chart Reviewed, Consent Obtained/Reviewed and Anes Risks/Benef Reviewed Patient Risk: Low Procedure Risk: Low Anesthetic Plan Anesthetic Plan: MAC: Disposition: Standard PACU
--- NOTE | 2025-01-14 08:40 | P.PCNO_ITS ---
Ophthalmology Procedure Procedure Date of Service: 01/14/25 Ophthalmology Viscoelastic: Healon Duet Dual Pack Pro Ophthalmology Lenses: IOL Acrysof MP - [id number] (22.5) Procedure Notes: PREOPERATIVE DIAGNOSIS: Decreased visual acuity right eye secondary to cataract POSTOPERATIVE DIAGNOSIS: Same PROCEDURE: Right cataract extraction with intraocular lens insertion SURGEON: Garrett Suazo M.D. ANESTHESIA: Topical/MAC ESTIMATED BLOOD LOSS: None COMPLICATIONS: None After obtaining informed consent, the patient was brought to the operating room suite and placed in the supine position. After adequate sedation per anesthesia, topical drops of Tetracaine were given to the right eye. The eye was then prepped and draped in the usual sterile fashion. The operating room microscope was then positioned over the operative eye and a lid speculum placed. A paracentesis was created. Viscoelastic was then instilled into the anterior chamber. A three plane incision was then created temporally, utilizing a 2.85 mm keratome. Capsulotomy forceps were then utilized to create a circular tear capsulotomy. Hydrodissection and hydrodelineation were carried out until adequate mobilization of the nucleus occurred. Phacoemulsification was then utilized to remove the dense central nu cleus followed by removal of the cortical material utilizing the automated aspiration irrigation unit. Viscoelastic was instilled into the posterior capsular bag followed by placement of a posterior chamber intraocular lens without difficulty. The residual Viscoelastic was then removed utilizing the automated IA machine. The wound was checked and found to be watertight. The patient tolerated the procedure well and the lid speculum was removed. Intracameral injection of Vigamox 0.1 mL followed by a subtenon injection of Kenalog-40 0.2 mL were administered. The patient will be seen in the a.m.
--- NOTE | 2025-01-14 08:40 | MHC.SHP ---
Pre-Procedural Eval Section A - 24 Hr Update-Section A only Date of Service: 01/14/25 The patient is an INPATIENT: No Changes since office visit: No Cold of Flu in the past 2 weeks, No New Medical Problems, No Changes in Medication and No Patient answered all questions The patient has been examined within 24 hours of the surgical procedure. The History & Physical has been completed within 30 days and I have reviewed it.: Yes Section B - Complete if H&P > 30 days Chief Complaint: Age-related nuclear cataract, right eye Allergies: Allergies Allergy/AdvReac Type Severity Reaction Status Date / Time lidocaine Allergy Intermediate hives Verified 01/08/25 14:00 penicillin V Allergy Intermediate rash Verified 01/08/25 14:00 erythromycin base Allergy Unknown Rash Verified 01/08/25 14:00 Plan Diagnosis/Plan: Unchanged I have reviewed the history and physical and performed a pertinent physical examination on my patient. No changes have occurred unless specified. Time Spent With Patient Time: Total time managing care of this patient today ____ minutes.
[2025-01-14 09:10] VITALS: BP 124/65; PULSE 85; RESP 16; TEMP 36.8; O2SAT 97
--- NOTE | 2025-01-14 09:29 | P.CONAN_ITS ---
[facility] Active Problems Active Problems: All Active Problems Cataract (Acute) Pre-op evaluation (Acute) Lumbar spondylosis (Acute) Sacroiliac joint dysfunction of left side (Acute) Hip pain, left (Acute) Sacroiliac joint pain (Acute) Lower back pain (Acute) Rotator cuff tear, right (Acute) Annual physical exam (Acute) Foot pain, bilateral (Acute) Sprain of right thumb (Acute) Fracture of greater tuberosity of right humerus (Acute) Acute pharyngitis (Acute) Upper respiratory tract infection (Acute) Sunburn of first degree (Acute) Obesity due to excess calories (Acute) Anemia (Acute) History of nephrolithiasis (Acute) Blood in urine (Acute) Dysuria (Acute) Return to work evaluation (Acute) UTI (urinary tract infection) (Acute) Diverticulosis (Acute) Anemia due to blood loss (Acute) GI bleed (Acute) Postmenopausal bleeding (Acute) Abrasion (Acute) Cystocele with uterine prolapse (Acute) Intestinal disorder (Acute) Abdominal discomfort in left lower quadrant (Acute) Hospital discharge follow-up (Acute) Bladder prolapse (Acute) Nephrolithiasis (Acute) Ileus (Acute) Abdominal pain, right lower quadrant (Acute) Kidney stones (Acute) Eczema (Acute) Hypertension, essential (Acute) Hx of breast cancer (Acute) Past Medical History Medical History Arthritis Cataracts, bilateral Hx of essential hypertension Functional capacity: independent ambulation Patient : No Family History Family History Maternal Grandmother Breast cancer Sister Breast cancer Father Dementia Maternal Aunt Breast cancer Mother No problems noted. Paternal Grandmother Cancer of thyroid Brother No problems noted. Brother No problems noted. Brother No problems noted. Son No problems noted. Son No problems noted. Son No problems noted. Daughter No problems noted. Maternal Grandfather Mental health disorder Family history of problems with anesthesia: No Surgical History Surgical History History of dental surgery Hx of hysterectomy History of Problems with Anesthesia: No Social History Social History Housing: Apartment Alcohol intake: never Patient Tobacco Use Status: Never used Tobacco e-Cigarette/Vaping Use: Never Used Second Hand Smoke Exposure: Yes Use of substances other than those prescribed or required for medical reasons: No Are you DNR?: No Advance Directives: No Advance Directives Information Provided: Yes Patient : No service: No Current occupational status: employed 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, 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 Sexual orientation: Straight/Heterosexual Gender identity: Female Cognitive needs: No Hearing needs: No Vision needs: Yes Meds Allergies Allergy/AdvReac Type Severity Reaction Status Date / Time lidocaine Allergy Intermediate hives Verified 01/08/25 14:00 penicillin V Allergy Intermediate rash Verified 01/08/25 14:00 erythromycin base Allergy Unknown Rash Verified 01/08/25 14:00 Active Medications: Current Medications Lactated Ringer's (Lr) 500 mls @ 50 mls/hr IV .Q10H SAMMY Stop: 01/14/25 17:29 Last Admin: 01/14/25 08:03 Dose: 50 mls/hr Naloxone HCl (Naloxone Hcl 0.4 Mg/Ml Vial) 0.04 mg IVPUSH Q5M PRN PRN Reason: Excessive sedation or RR < 8 Povidone Iodine (Povidone Iodine 5 % Ophth Soln 30 Ml Bottle) 1 appl EYE-RIGHT PREOP PRN PRN Reason: Pre-Op Surgical Implant Prophy Exam Height,Weight and Vital Signs: Height 5 ft 3 in Weight 85.729 kg Last Vital Signs Temp 98.3 F 01/14/25 09:10 Pulse 85 01/14/25 09:10 Resp 16 01/14/25 09:10 BP 124/65 01/14/25 09:10 Pulse Ox 97 01/14/25 09:10 O2 Del Method Room Air 01/14/25 09:10 Airway Mallampati Class: II TM Dist: >3cm Neck ROM: Full Heart: RRR Lungs: CTA Assessment and Plan Assessment Anesthesia Assessment: Anesthesia Plan Discussed and Chart Reviewed Final Anesthetic Review Family History of Problems with Anesthesia: No History of Problems with Anesthesia: No NPO: Yes ASA Class: II Final Preanesthetic Review: Meds/Allgs Chart Reviewed, Consent Obtained/Reviewed and Anes Risks/Benef Reviewed Patient Risk: Low Procedure Risk: Low Anesthetic Plan Anesthetic Plan: MAC: Disposition: Standard PACU
--- NOTE | 2025-01-14 09:30 | HO.POSTANES ---
Post Anesthesia Evaluation Post Anesthesia Evaluation Date of Service: 01/14/25 Vital Signs: Vital Signs Temp Pulse Resp BP Pulse Ox O2 Del Method 01/14/25 09:10 98.3 F 85 16 124/65 97 Room Air 01/14/25 07:50 97.9 F 92 15 129/67 97 Room Air Anesthesia: Monitored Mental Status: Awake Pain Control: Satisfactory Nausea/Vomiting: None Hydration: Adequate Anesthesia-Related Issues: No Anes. Related Issues
== END 2025-01-14 09:24 | disposition home or self-care (01) ==
PROVIDERS: PCP Internal Medicine; Visit Provider Ophthalmology
PROC: (CPT 66985; principal; 2025-01-14 08:30)
DX: H25.11 Age-related nuclear cataract, right eye (principal); H54.7 Unspecified visual loss; I10 Essential (primary) hypertension; Z88.0 Allergy status to penicillin; Z88.1 Allergy status to other antibiotic agents; Z88.8 Allergy status to other drugs, medicaments and biological substances; Z79.899 Other long term (current) drug therapy
CPT/HCPCS: 66984; J2250; J3301; V2630

== ENCOUNTER 2025-01-16 12:53 | Outpatient (AMB) | payer MEDICARE, SELFPAY ==
[2025-01-16 12:54] VITALS: BP 124/78; PULSE 89; TEMP 36.6; O2SAT 98; BMI 33.1
--- NOTE | 2025-01-16 12:54 | MHC.PC.OV ---
Vital Signs 01/16/25 12:54 Height 5 ft 3 in Weight 187 lb BMI 33.1 BP 124/78 Blood Pressure Location Rt brachial Position Sitting Pulse 89 Pulse Source Pulse Oximeter Temp 97.8 F Temp Source Oral Pulse Oximetry (%) 98 Oxygen Delivery Method Room Air Intake Visit Reasons: Paperwork Allergies lidocaine Allergy (Intermediate, Verified 01/16/25 12:55) hives penicillin V Allergy (Intermediate, Verified 01/16/25 12:55) rash erythromycin base Allergy (Unknown, Verified 01/16/25 12:55) Rash Medication List - Last Reconciled 01/16/25 by Shane Santos MD losartan 50 mg PO DAILY [shower mat As directed] triamcinolone acetonide 0.1% small amount topical daily; 30 days Tobacco use date assessed: 01/08/25 Dental Screening Dental Screen Date: 12/05/24 HPI Paperwork HPI Details History - The patient is a 69-year-old female presenting with a persistent rash, on her face - The rash has been long-standing with increasing severity recently noted. - Previously applied topical treatment did not improve the symptoms. - Affected areas include the face and, previously, the fingers. - Patient has no prior dermatological consultations for this issue. Also need correction on her ongoing work-related paperwork which was addressed today Problem List - Rash on face Patient Instructions - A new cream will be prescribed for nighttime application, specific to facial use. - An appointment will be scheduled with a reefer truck driver for further evaluation. - Monitor the rash for any changes and discontinue use of ineffective treatments from prior advice. - Continue to maintain skin hydration and avoid known irritants. Review of Systems - General: No fever no chills - Neurological: No headaches no dizziness - Ear nose throat: No sore throat no hearing difficulty no ear pain - Cardiovascular: No syncope, no chest pain, no palpitations - Gastrointestinal: No nausea vomiting or diarrhea - Endocrine: No polyuria polydipsia no heat intolerance - Genitourinary: No dysuria , no blood in urine Physical Exam General: No acute distress HEENT: Cataract surgery in right eye, no acute findings Neck: Supple Respiratory system: Able to talk in full sentences, no audible wheeze cardiovascular: S1-S2 regular in rate and rhythm Gastrointestinal: No pain 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 Paternal Grandmother Cancer of thyroid Brother No problems noted. Brother No problems noted. Brother No problems noted. Son No problems noted. Son No problems noted. Son No problems noted. Daughter No problems noted. 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 Sammy Phillips, Trinidad Peterson, Binh Hayes and colleagues, with an educational emory from [employer]. Physical exam (Primary Care) Vital Signs: Last Vital Signs Temp 97.8 F 01/16/25 12:54 Pulse 89 01/16/25 12:54 BP 124/78 01/16/25 12:54 Pulse Ox 98 01/16/25 12:54 Oxygen Delivery Method Room Air 01/16/25 12:54 BMI result Body Mass Index 33.1 Tobacco/Smoking Status: Tobacco use Status Tobacco use date assessed 01/08/25 01/16/25 12:54 Patient Tobacco Use Status Never used Tobacco 01/16/25 12:54 e-Cigarette/Vaping Use Never Used 01/16/25 12:54 Thrive Assessment: Date of Thrive Assessment Date Thrive assessed 12/05/24 01/16/25 12:54 Coding Level of Care Code Est Pt Level 3 (48009) Diagnoses Facial rash R21 Lumbar spondylosis M47.816 Sacroiliac joint dysfunction of left side M53.3 Assessment & Plan Assessment & Plan (1) Facial rash: Code(s): R21 - Rash and other nonspecific skin eruption Category: Medical (2) Lumbar spondylosis: Code(s): M47.816 - Spondylosis without myelopathy or radiculopathy, lumbar region Category: Medical (3) Sacroiliac joint dysfunction of left side: Code(s): M53.3 - Sacrococcygeal disorders, not elsewhere classified Category: Medical Plan History - The patient is a 69-year-old female presenting with a persistent rash, on her face - The rash has been long-standing with increasing severity recently noted. - Previously applied topical treatment did not improve the symptoms. - Affected areas include the face and, previously, the fingers. - Patient has no prior dermatological consultations for this issue. Also need correction on her ongoing work-related paperwork which was addressed today Problem List - Rash on face Patient Instructions - A new cream will be prescribed for nighttime application, specific to facial use. - An appointment will be scheduled with a reefer truck driver for further evaluation. - Monitor the rash for any changes and discontinue use of ineffective treatments from prior advice. - Continue to maintain skin hydration and avoid known irritants. Orders: Referrals Dermatology Referral R21 - Rash and other nonspecific skin eruption Medications: New metronidazole 1% 1 appl topical BEDTIME 55 grams 0RF Facial rash
== END 2025-01-16 14:23 | disposition home or self-care (01) ==
PROVIDERS: PCP Internal Medicine; Visit Provider Internal Medicine
DX: R21 Rash and other nonspecific skin eruption (principal); M47.816 Spondylosis without myelopathy or radiculopathy, lumbar region; M53.3 Sacrococcygeal disorders, not elsewhere classified

== ENCOUNTER → 2025-01-16 12:53 | Outpatient (BNVA) | payer MEDICARE, SELFPAY | PROVIDERS: PCP Internal Medicine; Visit Provider Internal Medicine | DX: R21 Rash and other nonspecific skin eruption (principal); M47.816 Spondylosis without myelopathy or radiculopathy, lumbar region; M53.3 Sacrococcygeal disorders, not elsewhere classified | CPT/HCPCS: 99212 ==

== ENCOUNTER 2025-01-28 07:37 | Day surgery (SDC) | payer MEDICARE, SELFPAY ==
[2025-01-09 12:49] VITALS: BMI 33.5
--- NOTE | 2025-01-24 14:29 | HO.ANESPROP2 ---
Documented by User: Tracy Bran NP 01/24/25 14:29 HPI - Anesthesia Eval Consult details Narrative: 69yo F for Left Cataract Extraction IOL Insertion Right eye 01/14/25: [facility]az 1 PMFSH Active Problems Active Problems: All Active Problems Facial rash (Acute) Cataract (Acute) Pre-op evaluation (Acute) Lumbar spondylosis (Acute) Sacroiliac joint dysfunction of left side (Acute) Hip pain, left (Acute) Sacroiliac joint pain (Acute) Lower back pain (Acute) Rotator cuff tear, right (Acute) Annual physical exam (Acute) Foot pain, bilateral (Acute) Sprain of right thumb (Acute) Fracture of greater tuberosity of right humerus (Acute) Acute pharyngitis (Acute) Upper respiratory tract infection (Acute) Sunburn of first degree (Acute) Obesity due to excess calories (Acute) Anemia (Acute) History of nephrolithiasis (Acute) Blood in urine (Acute) Dysuria (Acute) Return to work evaluation (Acute) UTI (urinary tract infection) (Acute) Diverticulosis (Acute) Anemia due to blood loss (Acute) GI bleed (Acute) Postmenopausal bleeding (Acute) Abrasion (Acute) Cystocele with uterine prolapse (Acute) Intestinal disorder (Acute) Abdominal discomfort in left lower quadrant (Acute) Hospital discharge follow-up (Acute) Bladder prolapse (Acute) Nephrolithiasis (Acute) Ileus (Acute) Abdominal pain, right lower quadrant (Acute) Kidney stones (Acute) Eczema (Acute) Hypertension, essential (Acute) Hx of breast cancer (Acute) Past Medical History Medical History (Updated 01/16/25 @ 13:51 by Shane Santos MD) Arthritis Cataracts, bilateral Hx of essential hypertension Family History Family History Maternal Grandmother Breast cancer Sister Breast cancer Father Dementia Maternal Aunt Breast cancer Mother No problems noted. Paternal Grandmother Cancer of thyroid Brother No problems noted. Brother No problems noted. Brother No problems noted. Son No problems noted. Son No problems noted. Son No problems noted. Daughter No problems noted. Maternal Grandfather Mental health disorder Family history of problems with anesthesia: No Surgical History Surgical History (Updated 01/23/25 @ 14:42 by Dede Gaytan RN) Hx of right cataract extraction (01/14/25) History of dental surgery Hx of hysterectomy History of Problems with Anesthesia: No Social History Social History Housing: Apartment Alcohol intake: never Patient Tobacco Use Status: Never used Tobacco e-Cigarette/Vaping Use: Never Used Second Hand Smoke Exposure: Yes Advance Directives: No Advance Directives Information Provided: Yes service: No Current occupational status: employed 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, 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 Sexual orientation: Straight/Heterosexual Gender identity: Female Cognitive needs: No Hearing needs: No Vision needs: Yes Meds Allergies Allergy/AdvReac Type Severity Reaction Status Date / Time lidocaine Allergy Intermediate hives Verified 01/16/25 12:55 penicillin V Allergy Intermediate rash Verified 01/16/25 12:55 erythromycin base Allergy Unknown Rash Verified 01/16/25 12:55 Exam Height,Weight and Vital Signs: Height 5 ft 3 in Weight 85.729 kg Assessment and Plan Assessment Anesthesia Assessment: Chart Reviewed Final Anesthetic Review Family History of Problems with Anesthesia: No History of Problems with Anesthesia: No Documented by User: Yudy Glasgow MD 01/28/25 08:11 [facility] Past Medical History Medical History (Updated 01/16/25 @ 13:51 by Shane Santos MD) Arthritis Cataracts, bilateral Hx of essential hypertension Family History Family History Maternal Grandmother Breast cancer Sister Breast cancer Father Dementia Maternal Aunt Breast cancer Mother No problems noted. Paternal Grandmother Cancer of thyroid Brother No problems noted. Brother No problems noted. Brother No problems noted. Son No problems noted. Son No problems noted. Son No problems noted. Daughter No problems noted. 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 Sexual orientation: Straight/Heterosexual Gender identity: Female Cognitive needs: No Hearing needs: No Vision needs: Yes Meds Allergies Allergy/AdvReac Type Severity Reaction Status Date / Time lidocaine Allergy Intermediate hives Verified 01/16/25 12:55 penicillin V Allergy Intermediate rash Verified 01/16/25 12:55 erythromycin base Allergy Unknown Rash Verified 01/16/25 12:55 Exam Airway Mallampati Class: II TM Dist: >3cm Neck ROM: Full Partial: Upper and Lower Heart: rrr Lungs: cta Assessment and Plan Assessment Anesthesia Assessment: Anesthesia Plan Discussed Final Anesthetic Review NPO: Yes ASA Class: II Final Preanesthetic Review: No Changes in Pt Med Stat, Meds/Allgs Chart Reviewed and Consent Obtained/Reviewed Patient Risk: Low Procedure Risk: Low Anesthetic Plan Anesthetic Plan: MAC: Disposition: Standard PACU
[2025-01-28] MEDS: Tetracaine HCl/PF 0.5% Oph Sol 4 ML DROPS 1 DROP EYE-LEFT (07:58)
[2025-01-28] MEDS: Cyclopentolate 1 % Ophth Sol 2 ML DRPBTL 1 DROP EYE-LEFT ×3 (08:01→08:16)
[2025-01-28] MEDS: Tropicamide 1 % Ophth Sol 3 ML BTL 1 DROP EYE-LEFT ×3 (08:02→08:18)
[2025-01-28] MEDS: Ketorolac Tromethamine 0.5% Op 5 ML DROPS 1 DROP EYE-LEFT ×3 (08:06→08:20)
[2025-01-28] MEDS: Phenylephrine HCL 2.5% Oph SoL 2 ML BOTTLE 1 DROP EYE-LEFT ×3 (08:07→08:21)
[2025-01-28 08:10] VITALS: BP 129/89; PULSE 90; RESP 16; TEMP 36.7; O2SAT 97
[2025-01-28] MEDS: Lactated Ringers 500 ML 50 ML IV (08:13)
--- NOTE | 2025-01-28 08:55 | MHC.SHP ---
Pre-Procedural Eval Section A - 24 Hr Update-Section A only Date of Service: 01/28/25 The patient is an INPATIENT: No Changes since office visit: No Cold of Flu in the past 2 weeks, No New Medical Problems, No Changes in Medication and No Patient answered all questions The patient has been examined within 24 hours of the surgical procedure. The History & Physical has been completed within 30 days and I have reviewed it.: Yes Section B - Complete if H&P > 30 days Chief Complaint: Age-related nuclear cataract, left eye Allergies: Allergies Allergy/AdvReac Type Severity Reaction Status Date / Time lidocaine Allergy Intermediate hives Verified 01/28/25 08:23 penicillin V Allergy Intermediate rash Verified 01/28/25 08:23 erythromycin base Allergy Unknown Rash Verified 01/28/25 08:23 Plan Diagnosis/Plan: Unchanged I have reviewed the history and physical and performed a pertinent physical examination on my patient. No changes have occurred unless specified. Time Spent With Patient Time: Total time managing care of this patient today ____ minutes.
--- NOTE | 2025-01-28 08:55 | HO.PNOPHT ---
Ophthalmology Procedure Procedure Date of Service: 01/28/25 Ophthalmology Viscoelastic: Healon Duet Dual Pack Pro Ophthalmology Lenses: IOL Acrysof MP - [id number] (22) Procedure Notes: PREOPERATIVE DIAGNOSIS: Decreased visual acuity left eye secondary to cataract POSTOPERATIVE DIAGNOSIS: Same PROCEDURE: Left cataract extraction with intraocular lens insertion SURGEON: Garrett Suazo M.D. ANESTHESIA: Topical/MAC ESTIMATED BLOOD LOSS: None COMPLICATIONS: None After obtaining informed consent, the patient was brought to the operation room suite and placed in the supine position. After adequate sedation per anesthesia, topical drops of Tetracaine were given to the left eye. The eye was then prepped and draped in the usual sterile fashion. The operating room microscope was then positioned over the operative eye and a lid speculum placed. A paracentesis was created. Viscoelastic was then instilled into the anterior chamber. A three plane incision was then created temporally, utilizing a 2.85 mm keratome. Capsulotomy forceps were then utilized to create a circular tear capsulotomy. Hydrodissection and hydrodelineation were carried out until adequate mobilization of the nucleus occurred. Phacoemulsification was then utilized to remove the dense central nucleus followed by removal of the cortical material utilizing the automated aspiration irrigation unit. Viscoat elastic was instilled into the posterior capsular bag followed by placement of a posterior chamber intraocular lens without difficulty. The residual Viscoat elastic was then removed utilizing the automated IA machine. The wound was check and found to be watertight. The patient tolerated the procedure well and the lid speculum was removed. Intracameral injection of Vigamox 0.1 mL followed by a subtenon injection of Kenalog-40 0.2 mL were administered. The patient will be seen in the a.m.
[2025-01-28 09:16] VITALS: BP 135/61; PULSE 81; RESP 16; TEMP 36.8; O2SAT 99
[2025-01-28 09:31] VITALS: BP 145/72; PULSE 77; RESP 16; TEMP 36.8; O2SAT 97
== END 2025-01-28 09:35 | disposition home or self-care (01) ==
PROVIDERS: PCP Internal Medicine; Visit Provider Ophthalmology
PROC: (CPT 66985; principal; 2025-01-28 09:00)
DX: H25.12 Age-related nuclear cataract, left eye (principal); H54.7 Unspecified visual loss; I10 Essential (primary) hypertension; Z79.899 Other long term (current) drug therapy; Z88.0 Allergy status to penicillin; Z88.1 Allergy status to other antibiotic agents; Z88.8 Allergy status to other drugs, medicaments and biological substances; Z98.890 Other specified postprocedural states
CPT/HCPCS: 66984; J2250; J3301; V2632

== ENCOUNTER 2025-02-19 06:09 | Outpatient (REF) | payer MEDICARE, SELFPAY ==
--- NOTE | ~2025-02-19 | FL_ITS ---
EXAMINATION: FL GUIDANCE ONLY HISTORY: M53.3 - Sacrococcygeal disorders, not elsewhere classified COMPARISON: None available. TECHNIQUE: Fluoroscopy time: 8.0 seconds. Cumulative Dose: 2.4690 mGy. DAP: 1.0740 mGym2 Images: 2. FINDINGS: Images demonstrate a needle and contrast in the region of the left sacroiliac joint. FL/FL guidance in treatment room IMPRESSION: Fluoroscopy during procedure. Please see procedure report for additional information. Electronically signed by: Sammy Abarca MD 02/19/2025 09:21 AM EDT
== END 2025-02-19 06:10 | disposition home or self-care (01) ==
LOC: CF 06:09
PROVIDERS: Visit Provider Anesthesiology
DX: M53.3 Sacrococcygeal disorders, not elsewhere classified (principal)
CPT/HCPCS: 27096; J2003; J2401; J2795; J3301; Q9967

== ENCOUNTER 2025-02-19 07:47 | Outpatient (AMB) | payer MEDICARE, SELFPAY ==
[2025-02-19 07:58] VITALS: BP 121/88; PULSE 89; RESP 16; O2SAT 99
--- NOTE | 2025-02-19 07:58 | MHC.OFFVIS ---
Vital Signs 02/19/25 07:58 02/19/25 08:41 BP 121/88 143/79 H Blood Pressure Location Lt brachial Lt brachial Position Sitting Sitting Respiration 16 16 Pulse 89 81 Pulse Source Pulse Oximeter Pulse Oximeter Pulse Oximetry (%) 99 98 Oxygen Delivery Method Room Air Room Air Intake Visit Reasons: LEFT THERAPEUTIC SIJ INJECTION Fisher Dip Net Required: No Allergies lidocaine Allergy (Intermediate, Verified 02/19/25 07:58) hives penicillin V Allergy (Intermediate, Verified 02/19/25 07:58) rash erythromycin base Allergy (Unknown, Verified 02/19/25 07:58) Rash Medication List - Last Reconciled 02/19/25 by Ritu Glaser LPN losartan 50 mg PO DAILY metronidazole 1% 1 appl topical BEDTIME [shower mat As directed] triamcinolone acetonide 0.1% small amount topical daily; 30 days PFS Medical History Arthritis Cataracts, bilateral Hx of essential hypertension Surgical History Hx of right cataract extraction (01/14/25) History of dental surgery Hx of hysterectomy Family History Maternal Grandmother Breast cancer Sister Breast cancer Father Dementia Maternal Aunt Breast cancer Mother No problems noted. Paternal Grandmother Cancer of thyroid Brother No problems noted. Brother No problems noted. Brother No problems noted. Son No problems noted. Son No problems noted. Son No problems noted. Daughter No problems noted. 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 Informed consent was thoroughly explained to the patient before the procedure.? The patient came to the operating room.? She was positioned prone on operating table with a pillow under her abdomen.? Time-out was performed delineating correct site and side of the procedure, nature of the injection, name and date of of the patient. The lower back and upper buttocks of the patient was prepped with ChloraPrep and draped with sterile utility towels.? C-arm was brought over the operating field and picture of left sacroiliac joint was demonstrated on the screen. Tilting machine contralateral right 15 degrees from the midline the anterior portion of the silhouette of the joint was superimposed on posterior portion of the silhouette of the joint. The skin was anesthetized with Chlorprocaine slightly medial to the silhouette of the sacroiliac joint. 22 gauge 3-1/2 inch spinal needle was inserted through the skin wheal and advanced to the sacroiliac joint. When tip of the needle entered the sacroiliac joint injection of the contrast performed delineating arthrogram. After that 3 mL of Chlorprocaine 2% mixed with Kenalog 40 mg was injected into the joint. After the injection the needle was removed and sterile bandades were applied Patient tolerated the procedure well. Orders: Orders FL guidance in treatment room Today M53.3 - Sacrococcygeal disorders, not elsewhere classified Coding Level of Care Code Procedure Only Diagnoses Sacroiliac joint dysfunction of left side M53.3
[2025-02-19 08:41] VITALS: BP 143/79; PULSE 81; RESP 16; O2SAT 98
== END 2025-02-19 08:43 | disposition home or self-care (01) ==
LOC: HO.PMCPRC 07:47
PROVIDERS: PCP Internal Medicine; Visit Provider Anesthesiology
DX: M53.3 Sacrococcygeal disorders, not elsewhere classified (principal)
CPT/HCPCS: 27096

== ENCOUNTER 2025-02-26 09:11 | Outpatient (AMB) | payer MEDICARE, SELFPAY ==
[2025-02-26 09:15] VITALS: BP 136/78; PULSE 86; O2SAT 98; BMI 32.8
--- NOTE | 2025-02-26 09:15 | A.OFFPC_ITS ---
Vital Signs 02/26/25 09:15 Height 5 ft 3 in Weight 185 lb BMI 32.8 BP 136/78 Blood Pressure Location Lt brachial Position Sitting Pulse 86 Pulse Source Pulse Oximeter Pulse Oximetry (%) 98 Oxygen Delivery Method Room Air Intake Visit Reasons: Paperwork Allergies lidocaine Allergy (Intermediate, Verified 02/26/25 09:15) hives penicillin V Allergy (Intermediate, Verified 02/26/25 09:15) rash erythromycin base Allergy (Unknown, Verified 02/26/25 09:15) Rash Medication List - Last Reconciled 02/26/25 by Shane Santos MD losartan 50 mg PO DAILY [shower mat As directed] triamcinolone acetonide 0.1% small amount topical daily; 30 days Tobacco use date assessed: 02/26/25 Fall risk assessment: No Falls in past year Last assessed Fall Risk: 02/26/25 Dental Screening Dental Screen Date: 02/26/25 Did you have a dental visit in the last 12 months?: Yes Did you have a dental problem in the last 6 months where you did not have access to dental care?: No Was dental information given to patient?: Patient has dentist HPI Paperwork HPI Details History - The patient is a 69-year-old female pr esenting with persistent lower back pain. - She received an injection in the sacro iliac area on February 19 for pain relief; however, the injection has not provided alleviation of symptoms. - The patient reports an inability to st and for more than five minutes and difficulty sitting on hard surfaces. - She had cataract surgery, which led to improved vision to 20/20. - A recent stressor was noted: the charles us illness and subsequent of her [id number], which required frequent travel and has contributed to overall stress. 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 - Dermatological concerns include a faci al skin condition improving with the use of a topical steroid, triamcinolone acetonide, although an appointment for dermatology follow-up has not been established. Paperwork filled from 09/11/2024 till 03/14/2025 Problem List - Lower Back Pain - Cataract (post-surgical status) - Skin Condition (treated with topical s teroid) Patient Instructions - Contact the dermatology department usi ng the provided number to schedule an appointment. - Continue using the prescribed topical steroid as directed for the facial condition. - Monitor back pain and evaluate changes in status; seek medical attention if symptoms worsen. - Consider discussing occupational fischer es if feasible, keeping financial planning in mind. - Track the progression of pain relief f ollowing the injection and report during the next scheduled medical appointment. Review of Systems - General: No fever no chills - Neurological: No headaches no dizziness - Ear nose throat: No sore throat no hearing difficulty no ear pain - Cardiovascular: No syncope, no chest pain, no palpitations - Gastrointestinal: No nausea vomiting or diarrhea - Endocrine: No polyuria polydipsia no heat intolerance - Genitourinary: No dysuria , no blood in urine Physical Exam General: No acute distress HEENT: 20/20 vision after cataract surgery Neck: Supple Respiratory system: Able to talk in full sentences, no audible wheeze Cardiovascular: S1-S2 regular in rate and rhythm Gastrointestinal: No pain Extremities: Unable to stand for more than five minutes, unable to sit on hard surfaces 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 Paternal Grandmother Cancer of thyroid Brother No problems noted. Brother No problems noted. Brother No problems noted. Son No problems noted. Son No problems noted. Son No problems noted. Daughter No problems noted. 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 How often do you have a drink containing alcohol?: Never 3. How often do you have six or more drinks on one occasion?: Never Total Score: 0 Score Reviewed/Action Taken: Yes SIA-7 AMB Questionnaire SIA-7 Date SIA - 7 assessed: 12/05/24 Source: Developed by Drs. Sammy Phillips, Trinidad Peterson, Binh Hayes and colleagues, with an educational emory from [employer]. Physical exam (Primary Care) Vital Signs: Last Vital Signs Pulse 86 02/26/25 09:15 BP 136/78 02/26/25 09:15 Pulse Ox 98 02/26/25 09:15 Oxygen Delivery Method Room Air 02/26/25 09:15 BMI result Body Mass Index 32.8 Tobacco/Smoking Status: Tobacco use Status Tobacco use date assessed 02/26/25 02/26/25 09:17 Patient Tobacco Use Status Never used Tobacco 02/26/25 09:17 e-Cigarette/Vaping Use Never Used 02/26/25 09:17 Thrive Assessment: Date of Thrive Assessment Date Thrive assessed 12/05/24 02/26/25 09:17 Coding Level of Care Code Est Pt Level 3 (16100) Diagnoses Sacroiliac joint dysfunction of left side M53.3 Facial rash R21 Lumbar spondylosis M47.816 Assessment & Plan Assessment & Plan (1) Sacroiliac joint dysfunction of left side: Code(s): M53.3 - Sacrococcygeal disorders, not elsewhere classified Category: Medical (2) Facial rash: Code(s): R21 - Rash and other nonspecific skin eruption Category: Medical (3) Lumbar spondylosis: Code(s): M47.816 - Spondylosis without myelopathy or radiculopathy, lumbar region Category: Medical Plan History - The patient is a 69-year-old female presenting with persistent lower back pain. - She received an injection in the sacroiliac area on February 19 for pain relief; however, the injection has not provided alleviation of symptoms. - The patient reports an inability to stand for more than five minutes and difficulty sitting on hard surfaces. - She had cataract surgery, which led to improved vision to 20/20. - A recent stressor was noted: the serious illness and subsequent of her [id number], which required frequent travel and has contributed to overall stress. 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 - Dermatological concerns include a facial skin condition improving with the use of a topical steroid, triamcinolone acetonide, although an appointment for dermatology follow-up has not been established. Paperwork filled from 09/11/2024 till 03/14/2025 Problem List - Lower Back Pain - Cataract (post-surgical status) - Skin Condition (treated with topical steroid) Patient Instructions - Contact the dermatology department using the provided number to schedule an appointment. - Continue using the prescribed topical steroid as directed for the facial condition. - Monitor back pain and evaluate changes in status; seek medical attention if symptoms worsen. - Consider discussing occupational changes if feasible, keeping financial planning in mind. - Track the progression of pain relief following the injection and report during the next scheduled medical appointment.
== END 2025-02-26 11:34 | disposition home or self-care (01) ==
PROVIDERS: PCP Internal Medicine; Visit Provider Internal Medicine
DX: M53.3 Sacrococcygeal disorders, not elsewhere classified (principal); R21 Rash and other nonspecific skin eruption; M47.816 Spondylosis without myelopathy or radiculopathy, lumbar region

== ENCOUNTER → 2025-02-26 09:11 | Outpatient (BNVA) | payer MEDICARE, SELFPAY | PROVIDERS: PCP Internal Medicine; Visit Provider Internal Medicine | DX: M54.50 Low back pain, unspecified (principal); M53.3 Sacrococcygeal disorders, not elsewhere classified; R21 Rash and other nonspecific skin eruption; M47.816 Spondylosis without myelopathy or radiculopathy, lumbar region | CPT/HCPCS: 99212 ==

== ENCOUNTER 2025-03-13 08:58 | Outpatient (AMB) | payer MEDICARE, SELFPAY ==
[2025-03-13 09:07] VITALS: BP 156/79; PULSE 94; O2SAT 97; BMI 33.5
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
== END 2025-03-13 09:23 | disposition home or self-care (01) ==
LOC: HO.PMC 08:58
PROVIDERS: PCP Internal Medicine; Visit Provider Registered Nurse Emergency
DX: M53.3 Sacrococcygeal disorders, not elsewhere classified (principal); M47.816 Spondylosis without myelopathy or radiculopathy, lumbar region
CPT/HCPCS: 99213; G2211

== ENCOUNTER → 2025-03-13 08:58 | Outpatient (BNVA) | payer MEDICARE, SELFPAY | PROVIDERS: PCP Internal Medicine; Visit Provider Registered Nurse Emergency | DX: M53.3 Sacrococcygeal disorders, not elsewhere classified (principal); M47.816 Spondylosis without myelopathy or radiculopathy, lumbar region | CPT/HCPCS: 99212 ==

== ENCOUNTER 2025-03-20 08:51 | Outpatient (AMB) | payer MEDICARE, SELFPAY ==
[2025-03-20 08:53] VITALS: BP 148/76; PULSE 86; O2SAT 98; BMI 33.4
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
== END 2025-03-20 09:33 | disposition home or self-care (01) ==
LOC: HO.HMCC 08:52
PROVIDERS: PCP Internal Medicine; Visit Provider Internal Medicine
DX: I10 Essential (primary) hypertension (principal); Z76.89 Persons encountering health services in other specified circumstances; M53.3 Sacrococcygeal disorders, not elsewhere classified; M47.816 Spondylosis without myelopathy or radiculopathy, lumbar region

== ENCOUNTER → 2025-03-20 08:51 | Outpatient (BNVA) | payer MEDICARE, SELFPAY | PROVIDERS: PCP Internal Medicine; Visit Provider Internal Medicine | DX: Z76.89 Persons encountering health services in other specified circumstances (principal); I10 Essential (primary) hypertension; M53.3 Sacrococcygeal disorders, not elsewhere classified; M47.816 Spondylosis without myelopathy or radiculopathy, lumbar region | CPT/HCPCS: 99212 ==

== ENCOUNTER 2025-03-26 06:21 | Outpatient (REF) | payer MEDICARE, SELFPAY ==
--- NOTE | ~2025-03-26 | FL_ITS ---
EXAMINATION: FL GUIDANCE ONLY HISTORY: M47.816 - Spondylosis without myelopathy or radiculopathy, lumbar region COMPARISON: None available. TECHNIQUE: Fluoroscopy time: 0.5 minutes. Cumulative Dose: 20.1 mGy. DAP: 0.349 mGym2 Images: 12. FINDINGS: Multiple fluoroscopic spot films of the lumbosacral junction in the AP projection demonstrate needles and contrast material in the regions of the bilateral L3-4, L4-5, and L5-S1 facet joints. FL/FL guidance in treatment room IMPRESSION: Fluoroscopy during procedure. Please see procedure report for additional information. Electronically signed by: Sammy Abarca MD 03/26/2025 02:55 PM EDT
== END 2025-03-26 06:22 | disposition home or self-care (01) ==
LOC: CF 06:21
PROVIDERS: Visit Provider Anesthesiology
DX: M47.816 Spondylosis without myelopathy or radiculopathy, lumbar region (principal)
CPT/HCPCS: 64493; 64494; J2003; J2401; J2795; Q9967

== ENCOUNTER 2025-03-26 12:39 | Outpatient (AMB) | payer MEDICARE, SELFPAY ==
[2025-03-26 12:45] VITALS: BP 130/84; PULSE 88; RESP 16; O2SAT 98
--- NOTE | 2025-03-26 12:45 | MHC.OFFVIS ---
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 Allergies lidocaine Allergy (Intermediate, Verified 03/26/25 12:46) hives penicillin V Allergy (Intermediate, Verified 03/26/25 12:46) rash erythromycin base Allergy (Unknown, Verified 03/26/25 12:46) Rash Medication List - Last Reconciled 03/26/25 by Ritu Glaser LPN losartan 50 mg PO DAILY [shower mat As directed] triamcinolone acetonide 0.1% small amount topical daily; 30 days PFSH Medical History Arthritis Cataracts, bilateral Hx of essential hypertension Surgical History Hx of right cataract extraction (01/14/25) History of dental surgery Hx of hysterectomy Family History Maternal Grandmother Breast cancer Sister Breast cancer Father Dementia Maternal Aunt Breast cancer Mother No problems noted. Paternal Grandmother Cancer of thyroid Brother No problems noted. Brother No problems noted. Brother No problems noted. Son No problems noted. Son No problems noted. Son No problems noted. Daughter No problems noted. 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 Informed consent was thoroughly explained to the patient before the procedure.? The patient came to the operating room.? She was positioned prone on operating table with a pillow under her abdomen.? Time-out was performed delineating correct site and side of the procedure, nature of the injection, name and date of of the patient. The lower back of the patient was prepped with ChloraPrep and draped with sterile utility towels.? C-arm was brought over the operating field and Sq picture of L4, L5, and S1 vertebra were demonstrated on the screen. The point of interest were delineated as confluence of the superior articular process of bilateral superior articular process L4 vertebras with corresponding bilateral transverse process of L4 vertebra, also superior articular process of bilateral L5 vertebra with corresponding bilateral transverse process of L5 vertebra, also confluence of the bilateral superior articular process of S1 vertebra with bilateral sacral ala. The projection of the point in risks of the skin were injected with small amount of Chlorprocaine 2%. After that 22 gauge 3 and 1/2 inch spinal needle was inserted into the skin and advanced to were the point of interest in tunnel vision fashion. When tip of the needle gently touched the bone injection of the contrast was performed delineating no intravascular and no intrathecal spread of the contrast. After that small amount of tetracaine 1% solution more than 1 cc was injected into each needle positioned. The patient tolerated the procedure well. Upon completion of the injection the needle was withdrawn and sterile Band-Aid was applied. Orders: Orders FL guidance in treatment room Today M47.816 - Spondylosis without myelopathy or radiculopathy, lumbar region Coding Level of Care Code Procedure Only Diagnoses Spondylosis of lumbar region without myelopathy or radiculopathy M47.816
[2025-03-26 14:12] VITALS: BP 122/84; PULSE 84; RESP 16; O2SAT 99
== END 2025-03-26 14:04 | disposition home or self-care (01) ==
LOC: HO.PMCPRC 12:39
PROVIDERS: PCP Internal Medicine; Visit Provider Anesthesiology
DX: M47.816 Spondylosis without myelopathy or radiculopathy, lumbar region (principal)
CPT/HCPCS: 64493; 64494

== ENCOUNTER 2025-03-29 13:02 | Outpatient (AMB) | payer MEDICARE, SELFPAY ==
--- NOTE | 2025-03-29 13:04 | A.OFFVIS_ITS ---
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 She received diagnostic injections in her lower back, which unexpectedly worsened her pain. Post-procedural aggravation was evident particularly after the injections, and the pain extended to both hips, a new development for her. She states that leaning forward, such as using a cart for support while walking, provides slight alleviation. Her pain interferes with daily activities, including grocery shopping, where she leans over a cart to minimize discomfort. - Onset and Timing: Chronic, persistent lower back pain, intensified after diagnostic injections. - Quality and Character: Described as worsening post-procedural with eventual new radiation to both hips. - Primary Location: Lower back, both sides, with radiation to hips. - Exacerbating Factors: Standing, sitting on hard surfaces, walking. - Relieving Factors: Leaning forward, such as utilizing a shopping cart. - Activities Interference: Affects daily activities including shopping, necessitating support for walking. - Affect: The patient's pain is affecting her psychological well-being. - Analgesia: Previous interventions include diagnostic injections which worsened pain temporarily. - Adverse Effects: None mentioned related to analgesia. - Activities of Daily Living: Affected by pain leading to avoidance of prolonged walking. - Aberrant Drug Related Behaviors: None indicated. [facility] Medical History Arthritis Cataracts, bilateral Hx of essential hypertension Surgical History Hx of right cataract extraction (01/14/25) History of dental surgery Hx of hysterectomy Family History Maternal Grandmother Breast cancer Sister Breast cancer Father Dementia Maternal Aunt Breast cancer Mother No problems noted. Paternal Grandmother Cancer of thyroid Brother No problems noted. Brother No problems noted. Brother No problems noted. Son No problems noted. Son No problems noted. Son No problems noted. Daughter No problems noted. 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 - Neurological: Denies radiation of pain down the legs. - Psychological: Reports anxiety related to imaging procedures, especially MRI. Physical Exam Vital Signs: Last Vital Signs Pulse 97 03/29/25 13:07 BP 157/79 H 03/29/25 13:07 BMI result Body Mass Index 31.9 General: awake, alert, oriented. Answers questions appropriately. Fully engaged in examination. Skin: warm, dry, intact HEENT: Normocephalic. Hearing intact. Cardiac: External chest normal in appearance. Respiratory: No cough, audible wheezing or stridor. Abdomen: without gross distension. MS: No obvious swelling or deformities. Able to transition from sit to stand unassisted. Ambulates with bilaterally normal heel strike and toe off Neurological: Oriented to person, place, time and situation. Thought process intact. No gait abnormalities appreciated. Psychiatric: Appropriate mood and affect. Good judgment and insight. Results Reviewed Results Reviewed: 07/2024 LUMBAR SPINE: Grade 1 anterolisthesis of L4 on L5, slightly increased when compared to the CT from 2020. Multilevel degenerative disc disease and bilateral facet arthropathy, progressed when compared to the CT from 2020. SACROILIAC JOINTS: Mild bilateral sacroiliac joint osteoarthritis, unchanged. 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 LEFT HIP: Mild osteoarthritis, unchanged. No acute fracture or dislocation. Assessment & Plan Assessment & Plan (1) Sacroiliac joint dysfunction of left side: Code(s): M53.3 - Sacrococcygeal disorders, not elsewhere classified Category: Medical (2) Lower back pain: Code(s): M54.50 - Low back pain, unspecified Category: Medical Qualifiers: Chronicity: acute Back pain laterality: left Sciatica presence: with sciatica Sciatica laterality: sciatica of left side Qualified Code(s): M54.42 - Lumbago with sciatica, left side (3) Spondylosis of lumbar region without myelopathy or radiculopathy: Code(s): M47.816 - Spondylosis without myelopathy or radiculopathy, lumbar region Category: Medical Plan The patient will undergo an MRI of the lower back to assess the structural cause of her chronic pain further. Patient has exhausted greater than 6 weeks conservative therapy including PT, home exercise program, NSAIDs, prescription medications, topical medications, muscle relaxers, injections without improvement of her symptoms. Further treatment decisions will be made based on the MRI results to address the pain more effectively. During the visit, I discussed the plan to undergo an MRI to further investigate the structural causes of the patient's chronic low back pain. The risks of undergoing an MRI were addressed. Our discussion included the importance of the MRI in understanding her pain and the intention to adjust her pain management strategy based on the findings. Follow-up after the MRI was recommended to discuss potential treatment modifications. Patient was informed and verbally consented to the use of an ambient scribe for clinic note documentation during this visit. Orders: Orders MR lumbar spine wo con Today M47.816 - Spondylosis without myelopathy or radiculopathy, lumbar region, M54.42 - Lumbago with sciatica, left side Patient Instructions: - Prepare for an MRI to assess the lower back. - Return for follow-up discussion after MRI completion. - Avoid exacerbating activities such as prolonged standing or hard surface sitting. - Use support when walking to help alleviate pain. Coding Level of Care Code Est Pt Level 3 (68412) Complex EM visit Add On G2211 Diagnoses Sacroiliac joint dysfunction of left side M53.3 Acute left-sided low back pain with left-sided sciatica M54.42 Chronicity: acute Back pain laterality: left Sciatica presence: with sciatica Sciatica laterality: sciatica of left side Spondylosis of lumbar region without myelopathy or radiculopathy M47.917
[2025-03-29 13:07] VITALS: BP 157/79; PULSE 97; BMI 31.9
== END 2025-03-29 13:20 | disposition home or self-care (01) ==
LOC: HO.PMC 13:03
PROVIDERS: PCP Internal Medicine; Visit Provider Registered Nurse Emergency
DX: M53.3 Sacrococcygeal disorders, not elsewhere classified (principal); M54.42 Lumbago with sciatica, left side; M47.816 Spondylosis without myelopathy or radiculopathy, lumbar region
CPT/HCPCS: 99213; G2211

== ENCOUNTER → 2025-03-29 13:02 | Outpatient (BNVA) | payer MEDICARE, SELFPAY | PROVIDERS: PCP Internal Medicine; Visit Provider Registered Nurse Emergency | DX: M47.816 Spondylosis without myelopathy or radiculopathy, lumbar region (principal); M53.3 Sacrococcygeal disorders, not elsewhere classified; M54.42 Lumbago with sciatica, left side | CPT/HCPCS: 99212 ==

== ENCOUNTER → 2025-04-19 09:46 | Outpatient (BNV) | payer MEDICARE, SELFPAY | PROVIDERS: PCP Internal Medicine; Visit Provider Radiology Diagnostic Radiology | DX: M47.896 Other spondylosis, lumbar region (principal) | CPT/HCPCS: 72148 ==

== ENCOUNTER 2025-04-19 09:49 | Outpatient (REF) | payer MEDICARE, SELFPAY ==
--- NOTE | ~2025-04-19 | MR_ITS ---
Workstation: [id number] EXAMINATION: MR LUMBAR SPINE WITHOUT IV CONTRAST History: M47.816 - Spondylosis without myelopathy or radiculopathy, lumbar region Technique: Sagittal T1, T2 and STIR, and axial T1 and T2 weighted images of the lumbar spine were obtained per departmental protocol. Comparison: Correlation is made with plain films of the lumbar spine dated 08/10/2024. Findings: The vertebral bodies maintain normal height. There is slight spondylolisthesis of L4 on L5. There are rounded foci of increased signal intensity within the T11, T12, L2, and L5 vertebral bodies on both T1 and T2-weighted sequences, consistent with hemangiomas. Bone marrow signal intensity is otherwise normal. There is mild degenerative disc disease at the L4-5 level with disc desiccation and loss of disc height. At T12-L1,there is no evidence of disc herniation, central spinal stenosis, or neural foraminal narrowing. At L1-2, there is no evidence of disc herniation, central spinal stenosis, or neural foraminal narrowing. At L2-3, there is no evidence of disc herniation, central spinal stenosis, or neural foraminal narrowing. At L3-4, there is moderate osteoarthritis of the left facet joint. There is no evidence of disc herniation, central spinal stenosis, or neural foraminal narrowing. At L4-5, there is uncovering of the intervertebral discs secondary to spondylolisthesis. There is severe facet osteoarthritis, left greater than right with resultant left neural foraminal narrowing. Edema is seen involving the left facet joint consistent with facet arthropathy. There is no significant central spinal or right neural foraminal stenosis. At L5-S1, there is a mild disc bulge into the right neural foramen. There is no significant central spinal or neural foraminal stenosis. There is osteoarthritis of the facet joints. The conus terminates at the T12-L1 level and demonstrates normal signal intensity. Evaluation of the paraspinal soft tissues demonstrates multiple bilateral renal parapelvic cysts. A portion of the left renal cortical cyst is also noted. MR/MR lumbar spine wo con Impression: 1. Slight spondylolisthesis of L4 on L5. Left facet arthropathy at L4-5 with resultant left neural foraminal narrowing. 2. Mild right foraminal disc bulge at L5-S1. Facet osteoarthritis. Electronically signed by: Sammy Abarca MD 04/19/2025 11:27 AM EDT RP
== END 2025-04-19 09:50 | disposition home or self-care (01) ==
LOC: HO.MRI 09:49
PROVIDERS: PCP Internal Medicine; Visit Provider Registered Nurse Emergency
DX: M47.816 Spondylosis without myelopathy or radiculopathy, lumbar region (principal); M54.42 Lumbago with sciatica, left side
CPT/HCPCS: 72148

== ENCOUNTER 2025-04-26 08:28 | Outpatient (AMB) | payer MEDICARE, SELFPAY ==
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
[2025-04-26 08:36] VITALS: BP 159/77; PULSE 94; RESP 16; O2SAT 95; BMI 33.3
== END 2025-04-26 09:02 | disposition home or self-care (01) ==
LOC: HO.PMC 08:29
PROVIDERS: PCP Internal Medicine; Visit Provider Registered Nurse Emergency
DX: M53.3 Sacrococcygeal disorders, not elsewhere classified (principal); M54.42 Lumbago with sciatica, left side; M47.816 Spondylosis without myelopathy or radiculopathy, lumbar region
CPT/HCPCS: 99213; G2211

== ENCOUNTER → 2025-04-26 08:28 | Outpatient (BNVA) | payer MEDICARE, SELFPAY | PROVIDERS: PCP Internal Medicine; Visit Provider Registered Nurse Emergency | DX: M54.16 Radiculopathy, lumbar region (principal); M53.3 Sacrococcygeal disorders, not elsewhere classified; M47.816 Spondylosis without myelopathy or radiculopathy, lumbar region | CPT/HCPCS: 99212 ==

== ENCOUNTER 2025-04-29 07:41 | Outpatient (REF) | payer MEDICARE, SELFPAY | END 2025-04-29 07:42 | disposition home or self-care (01) | LOC: HO.MAMMO 07:41 | PROVIDERS: PCP Internal Medicine; Visit Provider Internal Medicine | DX: Z12.31 Encounter for screening mammogram for malignant neoplasm of breast (principal) | CPT/HCPCS: 77063; 77067 ==

== ENCOUNTER → 2025-04-29 07:45 | Outpatient (BNV) | payer MEDICARE, SELFPAY | PROVIDERS: PCP Internal Medicine; Visit Provider Internal Medicine | DX: Z12.31 Encounter for screening mammogram for malignant neoplasm of breast (principal) | CPT/HCPCS: 77063; 77067 ==

== ENCOUNTER 2025-05-31 11:29 | Day surgery (SDC) | payer MEDICARE, SELFPAY ==
--- NOTE | ~2025-05-31 | FL_ITS ---
EXAMINATION: FL GUIDANCE ONLY HISTORY: Steroid injection COMPARISON: None available. TECHNIQUE: Fluoroscopy time: 22.5 seconds. Cumulative Dose: 8.8930 mGy. DAP: 2.3918 mGym2 Images: 1. FINDINGS: A single fluoroscopic image of the lumbar spine in the AP projection demonstrates a needle and contrast material in the region of the left L4 pedicle. Contrast is also seen inferior to the left L5 pedicle. FL/FL guidance in OR IMPRESSION: Fluoroscopy during procedure. Please see procedure report for additional information. Electronically signed by: Sammy Abarca MD 05/31/2025 12:46 PM EDT
[2025-05-31 11:41] VITALS: BMI 31.9
--- NOTE | 2025-05-31 11:42 | MHC.SHP ---
Pre-Procedural Eval Section A - 24 Hr Update-Section A only Date of Service: 05/31/25 The patient is an INPATIENT: No Changes since office visit: Yes Patient answered all questions The patient has been examined within 24 hours of the surgical procedure. The History & Physical has been completed within 30 days and I have reviewed it.: No Section B - Complete if H&P > 30 days Chief Complaint: Spondylosis without myelopathy or radiculopathy, Details of Present Illness: Radiculopathy lumbar. Relevant Family History (Specify if Yes): No Relevant Social History: Other (specify) Present Medications: None Medical History: No relevant PMH History of Previous Operations: No relevant previous surgery Allergies: Allergies Allergy/AdvReac Type Severity Reaction Status Date / Time lidocaine Allergy Intermediate hives Verified 04/26/25 08:39 penicillin V Allergy Intermediate rash Verified 04/26/25 08:39 erythromycin base Allergy Unknown Rash Verified 04/26/25 08:39 Review of Systems Sugical H&P ROS: Negative: Respiratory, Neurological, Psychiatric, Hem-Onc, Allergic/Immunologic, Gastrointestinal, Musculoskeletal, Integumentary, Endocrine and Eyes/Ears/Nose/Throat and Yes, Specify: Constitution (Obesity), Cardiovascular (Hypertension) and Genitourinary (Kidney stones) Exam Surgical H&P Exam: Normal: HEENT, Normal: Heart, Normal: Lungs, Normal: Extremities, Normal: Skin and Normal: Neurological and Significant Findings: Abdomen (Enlarged) Plan Diagnosis/Plan: Change I have reviewed the history and physical and performed a pertinent physical examination on my patient. No changes have occurred unless specified. I will perform left-sided L4-5 transforaminal epidural steroid injection Time Spent With Patient Time: Total time managing care of this patient today ____ minutes.
[2025-05-31 11:51] VITALS: BP 177/92; PULSE 88; RESP 16; TEMP 36.4; O2SAT 97
--- NOTE | 2025-05-31 12:29 | W.PM.OPN ---
Operative Note Operative Note Date of Service: 05/31/25 Narrative: Cindy is very pleasant 69 years old female who is suffering from spondylosis of lumbar spine and radiculopathy lumbar spine. Today she came to the operating room to receive transforaminal L4-5 epidural steroid injection on the left. Informed consent was thoroughly explained to the patient risks and benefits explained including risk of bleeding infection peripheral nerve damage spinal cord damage and headache. The patient was taken to the operating room and she was positioned prone on operating table. Time-out was performed delineating name and date of of the patient nature of the procedure side and site of the procedure and allergies of the patient. The patient is allergic to lidocaine so we used Chlorprocaine 2% for the procedure. The lower back of the patient was prepped with ChloraPrep and draped with sterile self adhesive utility towels. C-arm was brought over the operating field and sq picture of the L5 vertebra was delineated on the screen. Tilting machine ipsilateral to the left 30 degrees from the square image the most prominent image of the left L4 pedicle was demonstrated on the screen. 3 mm below the lowest point of the pedicle of L4 on the left projection to the skin injection of the chlorprocaine 2% was performed forming skin wheal. After that 22 gauge 5 in needle was inserted through the skin wheal and advanced to were the left L4-5 foramina in tunnel vision fashion. The advancement was performed on intermittent oblique and AP projection views. When the tip of the needle entered the silhouette of the spinal column injection of the contrast was performed showing anterior epidurogram and perineural spread of the contrast. After that injection of the 4 cc of Chlorprocaine 1% mixed with 40 mg of Kenalog was performed into the needle. Upon completion of the injection needle was removed sterile Band-Aids was applied. Patient tolerated procedure well she was taken outside of the operating room to recovery room where she recovered uneventfully.
[2025-05-31 12:30] VITALS: BP 158/84; PULSE 87; RESP 18; TEMP 36.6; O2SAT 97
--- NOTE | 2025-05-31 12:34 | P.BOP_ITS ---
Brief Operative Note Date of Service: 05/31/25 Pre-op diagnosis: Radiculopathy lumbar Procedure: Transforaminal epidural steroid injection L4-5 Surgeon: Sohail Garcia MD Was an Religious Healer used for this Procedure?: No Estimated blood loss (mL): 0 Condition: stable Disposition: PACU
== END 2025-05-31 12:45 | disposition home or self-care (01) ==
PROVIDERS: PCP Internal Medicine; Visit Provider Anesthesiology
PROC: (CPT 64483; principal; 2025-05-31 13:40)
DX: M47.26 Other spondylosis with radiculopathy, lumbar region (principal); G89.29 Other chronic pain; M53.3 Sacrococcygeal disorders, not elsewhere classified; M54.42 Lumbago with sciatica, left side; M19.90 Unspecified osteoarthritis, unspecified site; I10 Essential (primary) hypertension; Z88.0 Allergy status to penicillin; Z88.1 Allergy status to other antibiotic agents; Z88.8 Allergy status to other drugs, medicaments and biological substances
CPT/HCPCS: 64483; J2003; J2401; J3301; Q9967

== ENCOUNTER → 2025-05-31 11:29 | Outpatient (BNV) | payer MEDICARE, SELFPAY | PROVIDERS: PCP Internal Medicine; Visit Provider Anesthesiology | DX: M54.16 Radiculopathy, lumbar region (principal) | CPT/HCPCS: 64493 ==

== ENCOUNTER 2025-06-18 10:17 | Outpatient (AMB) | payer MEDICARE, SELFPAY ==
--- NOTE | 2025-06-18 10:18 | A.OFFPC_ITS ---
Vital Signs 06/18/25 10:19 Height 5 ft 3 in Weight 186 lb BMI 32.9 BP 128/76 Blood Pressure Location Lt brachial Position Sitting Pulse 100 Pulse Source Pulse Oximeter Pulse Oximetry (%) 98 Oxygen Delivery Method Room Air Intake Visit Reasons: Annual PE Animal Warden Required: No Allergies lidocaine Allergy (Intermediate, Verified 06/18/25 10:19) hives penicillin V Allergy (Intermediate, Verified 06/18/25 10:19) rash erythromycin base Allergy (Unknown, Verified 06/18/25 10:19) Rash Medication List - Last Reconciled 06/18/25 by Shane Santos MD losartan 50 mg PO DAILY [shower mat As directed] triamcinolone acetonide 0.1% small amount topical daily; 30 days Tobacco use date assessed: 03/20/25 Fall risk assessment: No Falls in past year Last assessed Fall Risk: 06/18/25 Dental Screening Dental Screen Date: 03/20/25 HPI Annual PE HPI Details History of Present Illness - The patient is a 69-year-old female pr esenting for a physical examination and review of chronic conditions. - The patient reports a history of lumba r spondylosis and left lumbar radiculopathy with pain sometimes radiating down the left leg. - Lumbar radiculopathy symptoms include left-sided leg pain, with the sensation of increased pressure in the lower spine when standing or sitting on hard surfaces. - She injections in the spine, which ag gravated her symptoms, and was advised against future procedures . - Previously diagnosed with essential hy pertension, which she manages with losartan 50 mg. The most recent blood pressure was 128/76 mmHg. - Underwent cataract surgery recently, r esulting in improved vision, though she requires glasses for very fine print. - She has experienced previous kidney st ones and diverticulosis. - Reports a history of obesity and menti ons bone spurs in the hip. - The patient uses a scooter for mobilit y on bad days due to musculoskeletal issues, including sacroiliac joint dysfunction. - Previously used an injection in L4-L5 for symptomatic relief, which was ineffective, as per recent complaints. Medical History: - Essential Hypertension - Lumbar Spondylosis - Left Lumbar Radiculopathy - Mild Right Disc Bulge, L5-S1 - Sacroiliac Joint Dysfunction - Spondylolisthesis L4-L5 - Obesity - Diverticulosis - History of Kidney Stones Surgical History: - Cataract surgery Social History: - The patient recently resigned from [employer] at [employer]. 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 - Uses a scooter for mobility due to jose manuel k pain on bad days but tries to walk when possible. Family History: - Family history of breast cancer, as in dicated by her sister's diagnosis. Health Maintenance - Recent cataract surgery with successfu l outcome. - Mammogram performed in April. - Colonoscopy due in 2026; patient prefe rs to have it done at [facility]. - Blood pressure monitoring due to hyper tension. - Liver enzymes were slightly elevated i n last labs, repeat testing required. - Recent LDL level was 58, deemed very g ood. - Flu vaccination discussed; patient exp ressed severe adverse reactions to past flu vaccines. [place] [facility] - Seen for pain management [facility] [place] Medications - Losartan 50 mg for Essential Hypertens ion Diagnostic results - Labs: Elevated liver enzymes; LDL was 58 - Imaging and Exam: MRI findings indicat ing slight spondylolisthesis L4-L5, left facet arthropathy, with resultant left neural foraminal narrowing, and mild right disc bulge L5-S1 with facet osteoarthritis Patient Instructions - Repeat labs due to past elevated liver enzymes. - Check with pharmacy for necessary vacc eloy. - Maintain mobility by walking when poss ible instead of using mobility aids if feeling well. handicap placard form filled Review of Systems - General: No fever no chills - Neurological: No headaches no dizzin ess - Ear nose throat: No sore throat no hearing difficulty no ear pain - Cardiovascular: No syncope, no chest pain, no palpitations - Gastrointestinal: No nausea vomiting or diarrhea - Endocrine: No polyuria polydipsia no heat intolerance - Genitourinary: No dysuria - Skin: No new complaints Physical Exam General: Cooperative, healthy appearing, comfortable, no acute distress Orientation: Patient oriented x3 Head: Normal to inspection Ears: Within normal limit visually Nose: Normal external nose present Face and sinus: Normal facial exam Eyes: Appearance normal, extraocular movement intact pupils reactive, post- cataract surgery, no need for glasses except for tiny print Neck: Normal visual inspection and supple Respiratory: Normal respiratory effort and able to speak in complete sentences. Clear to auscultation, no stridor Cardiovascular: S1 and S2 RRR GI: Normal to inspection. Soft to palpation and nontender Skin: Turgor normal, no acute findings Neuro: Patient oriented x3, motor sensory intact, balance intact, tandem failed Extremities: Normal to inspection, ROM intact, uses a cane occasionally, can walk depending on the day, sometimes uses a scooter for mobility assistance due to back pain [facility] Medical History Arthritis Cataracts, bilateral Hx of essential hypertension Surgical History Hx of left cataract extraction Hx of right cataract extraction (01/14/25) History of dental surgery Hx of hysterectomy Family History Maternal Grandmother Breast cancer Sister Breast cancer Father Dementia Maternal Aunt Breast cancer Mother No problems noted. Paternal Grandmother Cancer of thyroid Brother No problems noted. Brother No problems noted. Brother No problems noted. Son No problems noted. Son No problems noted. Son No problems noted. Daughter No problems noted. 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 1. Little interest or pleasure in doing things: not at all 2. Feeling down, depressed, or hopeless: not at all 3. Trouble falling or staying asleep, or sleeping too much: not at all 4. Feeling tired or having little energy: not at all 5. Poor appetite or overeating: not at all 6. Feeling bad about yourself - or that you are a failure or have let yourself or your family down: not at all 7. Trouble concentrating on things, such as reading the newspaper or watching television: not at all 8. Moving or speaking so slowly that other people could have noticed. Or the opposite - being so fidgety or restless that you have been moving around a lot more than usual: not at all 9. Thoughts that you would be better off or of hurting yourself in some way: not at all Total score: 0 Depression Screening Interpretation: Negative Depression Screening Done: Yes 34087 - PHQ-9 Billing: Yes Source: Developed by Drs. Sammy Phillips, Trinidad Peterson, Binh Hayes and colleagues, with an educational emory from [employer]. Thrive Questionnaire Date Thrive assessed: 06/18/25 I am a: Patient What is your living situation today?: I have a steady place to live Within the past 12 months, did the food you bought not last and you didn't have the money to get more?: Never true Within the past 12 months, did you worry whether your food would run out before you got money to buy more?: Never true Do you have trouble paying for medicines?: No Do you have trouble getting transportation to medical appointments?: No Do you have trouble paying your heating and electricity bill?: No Do you have trouble taking care of your child, family member or friend?: No Do you have trouble with day-to-day activities such as bathing, preparing meals, shopping, managing finances, etc.?: No Are you currently unemployed and looking for a job?: No Are you interested in more education?: No Please select the resources that you would like help with: None Currently or been in a relationship where the following occur: No concerns reported THRIVE Score: 0 AUDIT C Alcohol Use Questionnaire (AUDIT-C) 1. How often do you have a drink containing alcohol?: Never 3. How often do you have six or more drinks on one occasion?: Never Total Score: 0 Score Reviewed/Action Taken: Yes SIA-7 AMB Questionnaire SIA-7 Date SIA - 7 assessed: 06/18/25 Feeling nervous, anxious, or on edge: 0 = Not at all Not being able to stop or control worryin = Not at all Worrying too much about different things: 0 = Not at all Trouble relaxin = Not at all Being so restless that it is hard to sit still: 0 = Not at all Becoming easily annoyed or irritable: 0 = Not at all Feeling afraid as if something awful might happen: 0 = Not at all Total SIA-7 score (0-4 normal; 5-9 mild; 10-14 moderate; 15-21 severe): 0 Source: Developed by Drs. Sammy Phillips, Trinidad Peterson, Binh Hayes and colleagues, with an educational emory from [employer]. SIA-7 Assessment Billing ISA-7 Assessment Tool: SIA-7 Assessment 02550 Physical exam (Primary Care) Vital Signs: Last Vital Signs Pulse 100 06/18/25 10:19 BP 128/76 06/18/25 10:19 Pulse Ox 98 06/18/25 10:19 Oxygen Delivery Method Room Air 06/18/25 10:19 BMI result Body Mass Index 32.9 Tobacco/Smoking Status: Tobacco use Status Tobacco use date assessed 03/20/25 06/18/25 10:23 Patient Tobacco Use Status Never used Tobacco 06/18/25 10:23 e-Cigarette/Vaping Use Never Used 06/18/25 10:23 PHQ-9: PHQ-9 Score PHQ-9: Total score 0 06/18/25 10:44 Depression Screening Interpretation: Negative Thrive Assessment: Date of Thrive Assessment Date Thrive assessed 06/18/25 06/18/25 10:23 Currently or been in a relationship where the following occur: No concerns reported Coding Level of Care Code Est Pt Level 3 (89667) Est Pt Prev Care >65y(29226) Diagnoses Encounter for general adult medical examination with abnormal findings Z00.01 Hypertension, essential I10 Class 1 obesity due to excess calories with serious comorbidity and body mass index (BMI) of 32.0 to 32.9 in adult E66.09; Z68.32 Body mass index: BMI 32.0-32.9 Obesity classification: adult class 1 (BMI 30 - 34.9) Serious obesity comorbidity presence: with serious comorbidity Spondylosis of lumbar region without myelopathy or radiculopathy M47.816 Additional Codes SIA-7 Assessment Billing - SIA-7 Assessment Tool: SIA-7 Assessment 78583 ([id number]) PHQ-9 - 50627 - PHQ-9 Billing: Yes ([id number]) Assessment & Plan Assessment & Plan (1) Encounter for general adult medical examination with abnormal findings: Code(s): Z00.01 - Encounter for general adult medical examination with abnormal findings Category: Medical (2) Hypertension, essential: Code(s): I10 - Essential (primary) hypertension Category: Medical (3) Obesity due to excess calories: Code(s): E66.09 - Other obesity due to excess calories Category: Medical Qualifiers: Body mass index: BMI 32.0-32.9 Obesity classification: adult class 1 (BMI 30 - 34.9) Serious obesity comorbidity presence: with serious comorbidity Qualified Code(s): E66.09 - Other obesity due to excess calories; Z68.32 - Body mass index [BMI] 32.0-32.9, adult (4) Spondylosis of lumbar region without myelopathy or radiculopathy: Code(s): M47.816 - Spondylosis without myelopathy or radiculopathy, lumbar region Category: Medical Plan History of Present Illness - The patient is a 69-year-old female presenting for a physical examination and review of chronic conditions. - The patient reports a history of lumbar spondylosis and left lumbar radiculopathy with pain sometimes radiating down the left leg. - Lumbar radiculopathy symptoms include left-sided leg pain, with the sensation of increased pressure in the lower spine when standing or sitting on hard surfaces. - She injections in the spine, which aggravated her symptoms, and was advised against future procedures . - Previously diagnosed with essential hypertension, which she manages with losartan 50 mg. The most recent blood pressure was 128/76 mmHg. - Underwent cataract surgery recently, resulting in improved vision, though she requires glasses for very fine print. - She has experienced previous kidney stones and diverticulosis. - Reports a history of obesity and mentions bone spurs in the hip. - The patient uses a scooter for mobility on bad days due to musculoskeletal issues, including sacroiliac joint dysfunction. - Previously used an injection in L4-L5 for symptomatic relief, which was ineffective, as per recent complaints. Medical History: - Essential Hypertension - Lumbar Spondylosis - Left Lumbar Radiculopathy - Mild Right Disc Bulge, L5-S1 - Sacroiliac Joint Dysfunction - Spondylolisthesis L4-L5 - Obesity - Diverticulosis - History of Kidney Stones Surgical History: - Cataract surgery Social History: - The patient recently resigned from employment at [employer]. 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 - Uses a scooter for mobility due to back pain on bad days but tries to walk when possible. Family History: - Family history of breast cancer, as indicated by her sister's diagnosis. Health Maintenance - Recent cataract surgery with successful outcome. - Mammogram performed in April. - Colonoscopy due in 2026; patient prefers to have it done at [facility]. - Blood pressure monitoring due to hypertension. - Liver enzymes were slightly elevated in last labs, repeat testing required. - Recent LDL level was 58, deemed very good. - Flu vaccination discussed; patient expressed severe adverse reactions to past flu vaccines. [place] [facility] - Seen for pain management [facility] [place] Medications - Losartan 50 mg for Essential Hypertension Diagnostic results - Labs: Elevated liver enzymes; LDL was 58 - Imaging and Exam: MRI findings indicating slight spondylolisthesis L4-L5, left facet arthropathy, with resultant left neural foraminal narrowing, and mild right disc bulge L5-S1 with facet osteoarthritis Patient Instructions - Repeat labs due to past elevated liver enzymes. - Check with pharmacy for necessary vaccines. - Maintain mobility by walking when possible instead of using mobility aids if feeling well. handicap placard form filled Orders: Orders Complete Blood Count Auto Diff Today E66.09 - Other obesity due to excess calories, I10 - Essential (primary) hypertension, M47.816 - Spondylosis without myelopathy or radiculopathy, lumbar region, Z00.01 - Encounter for general adult medical examination with abnormal findings, Z68.32 - Body mass index [BMI] 32.0-32.9, adult Comprehensive Met. Panel Today E66.09 - Other obesity due to excess calories, I10 - Essential (primary) hypertension, M47.816 - Spondylosis without myelopathy or radiculopathy, lumbar region, Z00.01 - Encounter for general adult medical examination with abnormal findings, Z68.32 - Body mass index [BMI] 32.0-32.9, adult Vitamin D 25-OH (D2 and D3) Today E66.09 - Other obesity due to excess calories, I10 - Essential (primary) hypertension, M47.816 - Spondylosis without myelopathy or radiculopathy, lumbar region, Z00.01 - Encounter for general adult medical examination with abnormal findings, Z68.32 - Body mass index [BMI] 32.0-32.9, adult
[2025-06-18 10:19] VITALS: BP 128/76; PULSE 100; O2SAT 98; BMI 32.9
== END 2025-06-18 10:47 | disposition home or self-care (01) ==
LOC: HO.HMCC 10:18
PROVIDERS: PCP Internal Medicine; Visit Provider Internal Medicine
DX: Z00.01 Encounter for general adult medical examination with abnormal findings (principal); I10 Essential (primary) hypertension; E66.09 Other obesity due to excess calories; Z68.32 Body mass index [BMI] 32.0-32.9, adult; M47.816 Spondylosis without myelopathy or radiculopathy, lumbar region

== ENCOUNTER 2025-06-18 10:17 | Outpatient (REF) | payer MEDICARE, SELFPAY ==
[2025-06-18 13:42] LABS: MANUAL DIFF FLAG NO
[2025-06-18 13:51] LABS: Hematocrit 43.3 % (37.0-47.0); Hemoglobin 14.3 g/dl (12.0-16.0); Imm Gran Abs Auto 0.02 X10*3/uL (0.00-0.03); Imm Gran Pct Auto 0.3 % (0.0-0.4); Lymphocytes Absolute Auto 1.7 X10*3/uL (1.2-4.9); Mean Corpuscular HGB Conc 33.0 g/dl (31.0-35.0); Mean Corpuscular Hemoglobin 33.0 pg (27.0-33.0); Mean Corpuscular Volume 100.0 fL (80.0-98.0); NRBC Abs Auto 0.000 X10*3/uL (0.0-0.012); NRBC Pct Auto 0.0 /100WBC (0.0-0.2); Platelet Count 274 X10*3/uL (160-400); Red Blood Count 4.33 X10*6/uL (4.20-5.50); White Blood Count 6.7 X10*3/uL (4.8-10.8)
[2025-06-18 14:24] LABS: Alanine Aminotransferase 20 U/L (0-31); Albumin Level 4.5 g/dL (3.5-5.0); Alkaline Phosphatase 102 U/L (39-117); Anion Gap 12 (12-20); Aspartate Amino Transferase 28 U/L (5-31); Blood Urea Nitrogen 13 mg/dL (9-16); Calcium 8.8 mg/dL (8.4-10.2); Carbon Dioxide 25 mmol/L (22-29); Chloride 107 mmol/L (96-108); Estimated Glomerular Filt Rate > 60; Potassium 4.2 mmol/L (3.3-5.1); Sodium 140 mmol/L (135-145); Total Protein 7.4 g/dL (6.5-8.0)
[2025-06-23 15:58] LABS: Vitamin D 25-OH, D2 <4 ng/mL; Vitamin D 25-OH, D3 36 ng/mL; Vitamin D 25-OH, Total 36 ng/mL (30-100)
== END 2025-06-18 10:18 | disposition home or self-care (01) ==
LOC: HO.HMGCLDS 10:17
PROVIDERS: PCP Internal Medicine; Visit Provider Internal Medicine
DX: Z00.01 Encounter for general adult medical examination with abnormal findings (principal); I10 Essential (primary) hypertension; E66.09 Other obesity due to excess calories; Z68.32 Body mass index [BMI] 32.0-32.9, adult; M47.816 Spondylosis without myelopathy or radiculopathy, lumbar region; Z71.3 Dietary counseling and surveillance
CPT/HCPCS: 36415; 80053; 82306; 85025; 96127; 99397

== ENCOUNTER 2025-07-05 09:04 | Outpatient (AMB) | payer MEDICARE, SELFPAY ==
--- NOTE | 2025-07-05 09:08 | A.OFFVIS_ITS ---
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 The injection was performed with mild sedation on May 31, 2025, but did not provide significant relief from her pain. The patient has a history of sacroiliac joint dysfunction, which was initially diagnosed through a diagnostic sacroiliac injection that provided 100% relief for one day. Subsequent steroid injections into the sacroiliac joint did not provide relief and may have aggravated the condition. The patient describes her pain as originating in the sacroiliac region and sometimes radiating down her leg to the knee and up her back. The patient also reports arthritis in her lower back, which exacerbates her pain when standing for prolonged periods or engaging in activities such as cooking. She has modified her activities to manage her pain, including quitting her job and engaging in swimming, which she finds beneficial. The patient is cautious with medication use, primarily using muscle relaxers and occasionally Tylenol or ibuprofen, but avoids overuse due to the risk of falls. - Pain onset: Persistent since prior interventions - Quality: Radiating from sacroiliac region, sometimes down legs - Exacerbating factors: Standing for prolonged periods, cooking - Relieving factors: Swimming, activity modification - Affect: Pain impacts ability to stand for long periods, leading to job change - Analgesia: Uses muscle relaxers, Tylenol, and ibuprofen sparingly - Adverse Effects: Risk of falls with muscle relaxers - Activities of Daily Living: Modified activities, including swimming and job change, to manage pain - Aberrant Drug Related Behaviors: None reported [facility] Medical History Arthritis Cataracts, bilateral Hx of essential hypertension Surgical History Hx of left cataract extraction Hx of right cataract extraction (01/14/25) History of dental surgery Hx of hysterectomy Family History Maternal Grandmother Breast cancer Sister Breast cancer Father Dementia Maternal Aunt Breast cancer Mother No problems noted. Paternal Grandmother Cancer of thyroid Brother No problems noted. Brother No problems noted. Brother No problems noted. Son No problems noted. Son No problems noted. Son No problems noted. Daughter No problems noted. 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 Answers questions appropriately. Fully engaged in examination. Skin: warm, dry, intact HEENT: Normocephalic. Hearing intact. Cardiac: External chest normal in appearance. Respiratory: No cough, audible wheezing or stridor. Abdomen: without gross distension. MS: No obvious swelling or deformities. Able to transition from sit to stand unassisted. Ambulates with bilaterally normal heel strike and toe off Tenderness over left PSIS. Neurological: Oriented to person, place, time and situation. Thought process intact. Ambulates with use of a cane. Psychiatric: Appropriate mood and affect. Good judgment and insight. Vital Signs: Last Vital Signs Pulse 84 07/05/25 09:09 Resp 16 07/05/25 09:09 BP 178/84 H 07/05/25 09:09 Pulse Ox 97 07/05/25 09:09 Oxygen Delivery Method Room Air 07/05/25 09:09 BMI result Body Mass Index 33.1 Results Reviewed Results Reviewed: 04/2025 MR/MR lumbar spine wo con Findings: The vertebral bodies maintain normal height. There is slight spondylolisthesis of L4 on L5. There are rounded foci of increased signal intensity within the T11, T12, L2, and L5 vertebral bodies on both T1 and T2-weighted sequences, consistent with hemangiomas. Bone marrow signal intensity is otherwise normal. There is mild degenerative disc disease at the L4-5 level with disc desiccation and loss of disc height. At T12-L1,there is no evidence of disc herniation, central spinal stenosis, or neural foraminal narrowing. At L1-2, there is no evidence of disc herniation, central spinal stenosis, or neural foraminal narrowing. At L2-3, there is no evidence of disc herniation, central spinal stenosis, or neural foraminal narrowing. At L3-4, there is moderate osteoarthritis of the left facet joint. There is no evidence of disc herniation, central spinal stenosis, or neural foraminal narrowing. At L4-5, there is uncovering of the intervertebral discs secondary to spondylolisthesis. There is severe facet osteoarthritis, left greater than right with resultant left neural foraminal narrowing. Edema is seen involving the left facet joint consistent with facet arthropathy. There is no significant central spinal or right neural foraminal stenosis. At L5-S1, there is a mild disc bulge into the right neural foramen. There is no significant central spinal or neural foraminal stenosis. There is osteoarthritis of the facet joints. The conus terminates at the T12-L1 level and demonstrates normal signal intensity. Evaluation of the paraspinal soft tissues demonstrates multiple bilateral renal parapelvic cysts. A portion of the left renal cortical cyst is also noted. Impression: 1. Slight spondylolisthesis of L4 on L5. Left facet arthropathy at L4-5 with resultant left neural foraminal narrowing. 2. Mild right foraminal disc bulge at L5-S1. Facet osteoarthritis. 07/2024 LUMBAR SPINE: Grade 1 anterolisthesis of L4 on L5, slightly increased when compared to the CT from 2020. Multilevel degenerative disc disease and bilateral facet arthropathy, progressed when compared to the CT from 2020. SACROILIAC JOINTS: Mild bilateral sacroiliac joint osteoarthritis, unchanged. 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 LEFT HIP: Mild osteoarthritis, unchanged. No acute fracture or dislocation. Assessment & Plan Assessment & Plan (1) Sacroiliac joint dysfunction of left side: Code(s): M53.3 - Sacrococcygeal disorders, not elsewhere classified Category: Medical (2) Lower back pain: Code(s): M54.50 - Low back pain, unspecified Category: Medical Qualifiers: Chronicity: acute Back pain laterality: left Sciatica presence: with sciatica Sciatica laterality: sciatica of left side Qualified Code(s): M54.42 - Lumbago with sciatica, left side (3) Spondylosis of lumbar region without myelopathy or radiculopathy: Code(s): M47.816 - Spondylosis without myelopathy or radiculopathy, lumbar region Category: Medical Plan The patient was informed about the limited efficacy of the previous steroid injections and the potential for sacroiliac joint stimulation as a treatment option. This involves implanting wires over the nerves to disrupt pain signals, which is a surgical procedure. The patient was advised to review the provided materials on this procedure and consider it as a potential option. The patient was encouraged to continue swimming and consider water aerobics as a form of exercise to manage her pain. She was also advised to maintain her current medication regimen, using muscle relaxers and [id number] analgesics sparingly to avoid adverse effects. Brochure for [employer] PNS was provided, patient will review and call the office if she wishes to proceed with Left SIJ [employer]onix PNS trial. Patient was informed and verbally consented to the use of an ambient scribe for clinic note documentation during this visit. Patient Instructions: - Review the materials provided on sacroiliac joint stimulation and consider it as a treatment option. - Continue swimming and consider joining water aerobics classes to help manage pain. - Use muscle relaxers and [id number] pain medications sparingly to avoid side effects. Coding Level of Care Code Est Pt Level 3 (23685) Complex EM visit Add On G2211 Diagnoses Sacroiliac joint dysfunction of left side M53.3 Acute left-sided low back pain with left-sided sciatica M54.42 Chronicity: acute Back pain laterality: left Sciatica presence: with sciatica Sciatica laterality: sciatica of left side Spondylosis of lumbar region without myelopathy or radiculopathy M47.816
[2025-07-05 09:09] VITALS: BP 178/84; PULSE 84; RESP 16; O2SAT 97; BMI 33.1
== END 2025-07-05 09:51 | disposition home or self-care (01) ==
LOC: HO.PMC 09:04
PROVIDERS: PCP Internal Medicine; Visit Provider Registered Nurse Emergency
DX: M53.3 Sacrococcygeal disorders, not elsewhere classified (principal); M54.42 Lumbago with sciatica, left side; M47.816 Spondylosis without myelopathy or radiculopathy, lumbar region
CPT/HCPCS: 99213; G2211

== ENCOUNTER → 2025-07-05 09:04 | Outpatient (BNVA) | payer MEDICARE, SELFPAY | PROVIDERS: PCP Internal Medicine; Visit Provider Registered Nurse Emergency | DX: M47.816 Spondylosis without myelopathy or radiculopathy, lumbar region (principal); M54.42 Lumbago with sciatica, left side; M53.3 Sacrococcygeal disorders, not elsewhere classified | CPT/HCPCS: 99212 ==